=== PATIENT | female | born 1940 | race Caucasian/White ===

== ENCOUNTER → 2017-02-04 | Day surgery (SDC) | payer MEDICARE ==
[~2017-02-04] VITALS: Ht 163.8 cm; Wt 47.9 kg
[~2017-02-04] MED LIST: ASPI1TAB69 PO; BIOT1000 PO; CEFU1TAB20 PO; CHLORHEXIDINE GLUCONATE 2 % 1 PACK (2 CLOTHS) TOPICAL PRN; D31000CA PO; DO NOT ADM ANY ANTICOAGULANT DRUGS PRN; EPINEPHrine HCL (1:1000) 1 MG/ML VIAL ONE; FAMOTIDINE 20 MG/2 ML VIAL ONE; FERR1TAB7 PO; GAS-80CH CHEW; INSULIN HUMAN REGULAR 1,000 UNITS/10 ML VIAL SQ PRN; IPRAAER INH; LACTATED RINGER'S 1000 ML IV PRN; LEVO50TA4 PO; LIDOCAINE HCL 2% PF SOLN 10 ML VIAL ONE; LIDOCAINE VISCOUS 2% SOLN 15 ML UDC ONE; LIFI1DRO EACH EYE; METOPROLOL TARTRATE 25 MG TAB PO PRN; MIDAZOLAM HCL 2 MG/2 ML VIAL ONE; OMEP20TA PO; ONDANSETRON HCL 4 MG/2 ML VIAL IV PUSH ONE; POVIDONE IODINE 5% (ANTISEPSIS KIT) 4 APPLICATIONS EACH NARE PRN; PROPOFOL 200 MG/20 ML AMP IV ONE; SODIUM CHLORID 0.9% 500 ML IV PRN; VITA500T4 PO; ePHEDrine/NS 25 MG/5 ML SYR IV ONE
[2017-02-04 06:22] VITALS: BP 120/69; PULSE 79; RESP 18; TEMP 97.8; O2SAT 95
[2017-02-04 06:34] LABS: AUTOMATED NEUTROPHIL # 4.8 TH/MM3 (1.8-7.7); BASOPHIL # 0.2 TH/MM3 (0-0.2); BASOPHIL % 2.5 % (0.0-2.0); EOSINOPHIL # 0.4 TH/MM3 (0-0.4); EOSINOPHIL % 5.6 % (0.0-4.0); HEMATOCRIT 45.1 % (35.0-46.0); HEMO FLAGS DIFF FINAL; LYMPH % 20.5 % (9.0-44.0); LYMPHOCYTE # 1.6 TH/MM3 (1.0-4.8); MEAN CELL VOLUME 91.6 FL (80.0-100.0); MEAN CORPUSCULAR HEMOGLOBIN 29.6 PG (27.0-34.0); MEAN CORPUSCULAR HGB CONC 32.3 % (32.0-36.0); MONO % 8.5 % (0.0-8.0); NEUT % 62.9 % (16.0-70.0); PLATELET COUNT 286 TH/MM3 (150-450); RED BLOOD COUNT 4.92 MIL/MM3 (4.00-5.30); RED CELL DISTRIBUTION WIDTH 13.1 % (11.6-17.2); WHITE BLOOD COUNT 7.6 TH/MM3 (4.0-11.0)
[2017-02-04 06:50] LABS: APTT (PATIENT) 25.2 SEC (24.3-30.1); INTERNATIONAL NORMALIZED RATIO 0.9 RATIO; PROTHROMBIN TIME - PATIENT 10.4 SEC (9.8-11.6)
--- NOTE | 2017-02-04 09:16 | MR ---
cc: YOSEF NAVAS DATE: 02/04/2017 PROCEDURE Fiberoptic bronchoscopy, flexible. REASON FOR BRONCHOSCOPY Cavitary density, left upper lung. DETAILS OF PROCEDURE Fiberoptic bronchoscopy performed via LMA. Vocal cords intact. Trachea moderately hyperemic. Mary Lou sharp. Right main stem bronchus, right upper, middle and lower lobes, left main bronchus, left upper and lower lobe inspected. No obstructive pathology or mass lesion seen. Washings obtained from both sides of the tracheobronchial tree for routine, TB, fungal cultures and cytological exam. Given biopsies left upper lobe where obtained as well as blood and catheter for microbiology. There is some irregularity of the mucosa in the left upper lung, however, no mass lesion per se is identified. Procedure well-tolerated. Patient transferred to Recovery in stable condition. IMPRESSION 1. Moderate tracheobronchitis. 2. No obstruction or mass lesion. 3. Samples obtained as above. 4. Procedure well-tolerated. 5. Patient transferred to Recovery in stable condition. MD XAVI Garay/DI /8:44 AM /9:13 AM
[2017-02-04 09:41] VITALS: BP 120/69; PULSE 78; RESP 16; TEMP 97.8; O2SAT 95
--- NOTE | 2017-02-04 15:38 | EKG ---
Date Performed: 02/04/2017 Time Performed: 06:18:02 PTAGE: 76 years EKG: Sinus rhythm RIGHT ATRIAL ENLARGEMENT LEFT ATRIAL ENLARGEMENT MARKED RIGHT AXIS DEVIATION S1-S2-S3 PATTERN, CONSI STENT WITH PULMONARY DISEASE, RVH, OR NORMAL VARIANT PATTERN CONSISTENT WITH PULMONARY DISEASE INCOMP LETE RIGHT BUNDLE BRANCH BLOCK ABNORMAL ECG Compared to prior tracing no significant change PREVIOUS TRACING : 04/23/2005 14.22 DOCTOR: Amanda Proctor Interpretating Date/Time 02/04/2017 15:38:02
== END | disposition home or self-care (01) ==
LOC: HSDC 05:27
PROVIDERS: ATTEND Internal Medicine Sleep Medicine
DX: J40 Bronchitis, not specified as acute or chronic (principal); J47.9 Bronchiectasis, uncomplicated; Z01.818 Encounter for other preprocedural examination; Z01.810 Encounter for preprocedural cardiovascular examination
CPT/HCPCS: 00520; 31623; 85025; 85610; 85730; 87015; 87070; 87071; 87102; 87116; 87205; 87206; 88112; 88305; 93005; J0171; J2250; J2405

== ENCOUNTER 2017-06-27 12:00 | Inpatient (IN) | payer MEDICARE ==
[2017-06-27] VITALS (9 sets, daily range): BP systolic 112–154; BP diastolic 55–67; PULSE 76–94; RESP 14–18; TEMP 95.9–98.4; O2SAT 96–100
[~2017-06-27] VITALS: Ht 162.6 cm; Wt 50.8 kg
[~2017-06-27 12:00] MED LIST changes: -CHLORHEXIDINE GLUCONATE 2 % 1 PACK (2 CLOTHS) TOPICAL PRN; -DO NOT ADM ANY ANTICOAGULANT DRUGS PRN; -EPINEPHrine HCL (1:1000) 1 MG/ML VIAL ONE; -FAMOTIDINE 20 MG/2 ML VIAL ONE; -INSULIN HUMAN REGULAR 1,000 UNITS/10 ML VIAL SQ PRN; -LACTATED RINGER'S 1000 ML IV PRN; -LIDOCAINE HCL 2% PF SOLN 10 ML VIAL ONE; -LIDOCAINE VISCOUS 2% SOLN 15 ML UDC ONE; -METOPROLOL TARTRATE 25 MG TAB PO PRN; -MIDAZOLAM HCL 2 MG/2 ML VIAL ONE; -ONDANSETRON HCL 4 MG/2 ML VIAL IV PUSH ONE; -POVIDONE IODINE 5% (ANTISEPSIS KIT) 4 APPLICATIONS EACH NARE PRN; -PROPOFOL 200 MG/20 ML AMP IV ONE; -SODIUM CHLORID 0.9% 500 ML IV PRN; -ePHEDrine/NS 25 MG/5 ML SYR IV ONE
[2017-06-27] MEDS ORDERED: RESP: ALBUTEROL 2.5 MG/IPRATROPIUM 0.5 MG NEB (SCH) INH ONE (13:00)
[2017-06-27] MEDS ORDERED: SODIUM CHLORIDE 0.9% FLUSH 10 ML FLUSH IVF PRN (13:00)
--- NOTE | 2017-06-27 13:04 | PD ---
HPI Chief Complaint: Respiratory Symptoms Time Seen by Provider: 12:35 Travel History International Travel<30 days: No Contact w/Intl Traveler<30days: No Traveled to known affect area: No History of Present Illness HPI Patient comes in after been seen by her cataloging assistant Dr. Katz secondary to cough ongoing for 3 weeks. Patient reports she has been on Levaquin, steroids, using her Smart vest, and her nebulizer, but has not been getting any better. Patient reports low-grade temperature in the beginning. Patient reports history of multiple bronchoscopies in the past. Patient reports cough is nonproductive. Denies any chest pain, abdominal pain, vomiting, diarrhea, headache, numbness tingling anywhere. Denies anything making it better or worse. PFSH Past Medical History Arthritis: Yes Cancer: No Cardiovascular Problems: Yes (CARDIAC STENTS) COPD: Yes Diabetes: No Endocrine: Yes Gastrointestinal Disorders: Yes (GERD) GERD: No Genitourinary: Yes (INCONTINENCE) Hepatitis: No Hiatal Hernia: No Immune Disorder: No Medical other: Yes (Hx MAC(microbiotic averium complex)) Musculoskeletal: Yes (OSTEOPRNIS) Respiratory: Yes (SHORTNESS OF BREATH ON EXERTION, FLUID LEFT LUNG,COPD) Thyroid Disease: Yes Ulcer: No Influenza Vaccination: Yes ?: Not : 2 Para: 2 Past Surgical History Abdominal Surgery: Yes (APPY WITH PARATENITIS) AICD: No Cardiac Surgery: No Ear Surgery: No Endocrine Surgery: No Eye Surgery: Yes (CATARACTS REMOVED) Genitourinary Surgery: No Gynecologic Surgery: No Joint Replacement: No Oral Surgery: Yes (TONSILLECTOMY) Pacemaker: No Thoracic Surgery: Yes (PARTIAL LUNG REMOVED LEFT) Other Surgery: Yes Social History Alcohol Use: No Tobacco Use: No (quit 50 years ago) Substance Use: No Allergies-Medications (Allergen,Severity, Reaction): Coded Allergies: sulfamethoxazole (Verified Adverse Reaction, Intermediate, VOMITING, 06/27) trimethoprim (Verified Adverse Reaction, Intermediate, VOMITING, 06/27/17) Reported Meds & Prescriptions Reported Meds & Active Scripts Active Reported Restasis Opth 0.05% (Cyclosporine Opth 0.05%) 0.05% Emul 1 Drop EACH EYE BID Gas Relief (Simethicone) 80 Mg Chw 80 Mg PO QID PRN Duoneb (Ipratropium-Albuterol Neb) 0.5-2.5 Mg/3 Ml Neb 3 Ml NEB QID Ventolin Hfa 18 GM Inh (Albuterol Sulfate) 90 Mcg/Act Aer 1 Puff INH Q4H PRN Sm Iron Slow Release (Ferrous Sulfate) 142 Mg (45 Mg Iron) Tab 1 Tab PO DAILY Aspirin Adult Low Strength (Aspirin) 81 Mg Tabdr 81 Mg PO DAILY Biotin 1,000 Mcg Tab 1,000 Mcg PO DAILY D3 (Cholecalciferol) 1,000 Unit Cap 1,000 Units PO DAILY Vitamin B-12 (Cyanocobalamin) 500 Mcg Tab 500 Mcg PO DAILY Omeprazole 20 Mg Tab 20 Mg PO DAILY Levothyroxine (Levothyroxine Sodium) 50 Mcg Tab 50 Mcg PO DAILY Xiidra Opth Drops (Lifitegrast Opth Drops) 5% Drops 1 Drop EACH EYE DAILY Review of Systems Except as stated in HPI: all other systems reviewed are Neg Physical Exam Narrative GENERAL: Well-developed, under nourished, in no acute distress, and non-ill appearing. SKIN: Focused skin assessment warm and dry. HEAD: Atraumatic. Normocephalic. EYES: Pupils equal and round. EOMI. No scleral icterus. No injection or drainage. ENT: No nasal bleeding or discharge. Mucous membranes pink and moist. NECK: Trachea midline. Supple. No nuclear rigidity. CARDIOVASCULAR: Regular rate and rhythm. No murmur appreciated. RESPIRATORY: No accessory muscle use. No respiratory distress. Scant wheezing throughout. Breath sounds equal bilaterally. Dry hacking cough noted on exam. MUSCULOSKELETAL: No obvious deformities. No clubbing. No cyanosis. No edema. Full range of motion. NEUROLOGICAL: Awake and alert. No obvious cranial nerve deficits. Motor grossly within normal limits. Normal speech. PSYCHIATRIC: Appropriate mood and affect; insight and judgment normal. Data Data Last Documented VS Vital Signs Date Time Temp Pulse Resp B/P (MAP) Pulse Ox O2 Delivery O2 Flow Rate FiO2 06/27/17 15:34 97.8 82 18 123/67 (85) 98 Room Air 06/27/17 13:10 21 Orders Orders Electrocardiogram (06/27/17 ) Electrocardiogram (06/27/17 12:53) Basic Metabolic Panel (Bmp) (06/27/17 12:53) Complete Blood Count With Diff (06/27/17 12:53) Lactic Acid Sepsis Protocol (06/27/17 12:53) Blood Culture (06/27/17 12:53) Chest, Single Ap (06/27/17 12:53) Arterial Blood Gas (Abg) (06/27/17 12:53) Ecg Monitoring (06/27/17 12:53) Iv Access Insert/Monitor (06/27/17 12:53) Oximetry (06/27/17 12:53) Sodium Chloride 0.9% Flush (Ns Flush) (06/27/17 13:00) Albuterol-Ipratropium Neb (Duoneb Neb) (06/27/17 13:00) Ct Pulmonary Angiogram (06/27/17 ) Sodium Chlorid 0.9% 500 Ml Inj (Ns 500 M (06/27/17 14:00) Methylprednisolone So Succ Inj (Solumedr (06/27/17 14:00) Ceftriaxone Inj (Rocephin Inj) (06/27/17 14:00) Azithromycin Inj (Zithromax Inj) (06/27/17 14:00) Iohexol 350 Inj (Omnipaque 350 Inj) (06/27/17 14:37) Admit Order (Ed Use Only) (06/27/17 15:48) Labs Laboratory Tests Test 06/27/17 13:00 06/27/17 13:10 White Blood Count 14.7 TH/MM3 Red Blood Count 4.82 MIL/MM3 Hemoglobin 14.5 GM/DL Hematocrit 43.7 % Mean Corpuscular Volume 90.6 FL Mean Corpuscular Hemoglobin 30.2 PG Mean Corpuscular Hemoglobin Concent 33.3 % Red Cell Distribution Width 13.0 % Platelet Count 366 TH/MM3 Mean Platelet Volume 6.8 FL Neutrophils (%) (Auto) 81.1 % Lymphocytes (%) (Auto) 8.7 % Monocytes (%) (Auto) 7.6 % Eosinophils (%) (Auto) 1.7 % Basophils (%) (Auto) 0.9 % Neutrophils # (Auto) 12.0 TH/MM3 Lymphocytes # (Auto) 1.3 TH/MM3 Monocytes # (Auto) 1.1 TH/MM3 Eosinophils # (Auto) 0.2 TH/MM3 Basophils # (Auto) 0.1 TH/MM3 CBC Comment DIFF FINAL Differential Comment Blood Urea Nitrogen 9 MG/DL Creatinine 0.56 MG/DL Random Glucose 88 MG/DL Calcium Level 8.7 MG/DL Sodium Level 134 MEQ/L Potassium Level 3.9 MEQ/L Chloride Level 100 MEQ/L Carbon Dioxide Level 27.8 MEQ/L Anion Gap 6 MEQ/L Estimat Glomerular Filtration Rate 104 ML/MIN Lactic Acid Level 0.9 mmol/L Blood Gas Puncture Site LT BRACHIAL Blood Gas Patient Temperature 98.6 Blood Gas HCO3 27 mmol/L Blood Gas Base Excess 3.1 mmol/L Blood Gas Oxygen Saturation 95 % Arterial Blood pH 7.43 Arterial Blood Partial Pressure CO2 41 mmHg Arterial Blood Partial Pressure O2 80 mmHG Arterial Blood Oxygen Content 18.6 Vol % Arterial Blood Carboxyhemoglobin 0.9 % Arterial Blood Methemoglobin 0.6 % Blood Gas Hemoglobin 13.9 G/DL Oxygen Delivery Device RA [facility] Medical Decision Making Medical Screen Exam Complete: Yes Emergency Medical Condition: Yes Interpretation(s) EKG reviewed by Dr. Harris shows sinus rhythm ventricular is 76. No STEMI. Differential Diagnosis COPD exacerbation, pneumonia, bronchitis, PE, electrolyte abnormality, other Narrative Course Patient seen and exam. Initial laboratory and radiological studies were ordered. IV was established and patient was placed on monitor technician. Patient was given a breathing treatment which reports improvement for symptoms. Discussed patient with Dr. Rincon, who once patient admitted to medicine with consult to him. Discussed patient with Dr. Harris, who is in agreement with plan of care and disposition. Discussed with all findings and plan care of patient was agreeable for admission. All questions were answered. Discussed patient with residents who are agreeable to admit the patient. Patient remained stable throughout ED course. Physician Communication Physician Communication [id number] Rincon, who recommended having patient admitted to medicine with consult to him. Starting patient on IV antibiotics Zithromax and Rocephin, IV steroids, and nebulized breathing treatments. [id number] Dumont, resident classroom monitor, who is agreeable to admit the patient for Dr. Snowden Diagnosis Primary Impression: COPD exacerbation Additional Impression: Failure of outpatient treatment Admitting Information Admitting Physician Requests: Admit Condition: Stable Marko Morris Jun 27, 2017 13:04
[2017-06-27] MEDS ORDERED: SIME1CHW10 PO (13:08)
[2017-06-27] MEDS ORDERED: REST0.05 EACH EYE (13:08)
[2017-06-27] MEDS ORDERED: IPRASOL NEB (13:08)
[2017-06-27] MEDS ORDERED: VENTAER INH (13:08)
[2017-06-27] MEDS ORDERED: [UNRECOGNIZED DRUG - CODE] PO (13:08)
[2017-06-27] MEDS ORDERED: ASPI1TAB91 PO (13:08)
[2017-06-27 13:15] LABS: BASOPHIL # 0.1 TH/MM3 (0-0.2); BASOPHIL % 0.9 % (0.0-2.0); EOSINOPHIL # 0.2 TH/MM3 (0-0.4); EOSINOPHIL % 1.7 % (0.0-4.0); HEMATOCRIT 43.7 % (35.0-46.0); HEMO FLAGS DIFF FINAL; LYMPH % 8.7 % (9.0-44.0); LYMPHOCYTE # 1.3 TH/MM3 (1.0-4.8); MEAN CELL VOLUME 90.6 FL (80.0-100.0); MEAN CORPUSCULAR HEMOGLOBIN 30.2 PG (27.0-34.0); MEAN CORPUSCULAR HGB CONC 33.3 % (32.0-36.0); MONO % 7.6 % (0.0-8.0); NEUT % 81.1 % (16.0-70.0); PLATELET COUNT 366 TH/MM3 (150-450); RED BLOOD COUNT 4.82 MIL/MM3 (4.00-5.30); WHITE BLOOD COUNT 14.7 TH/MM3 (4.0-11.0)
[2017-06-27 13:25] LABS: BLOOD GAS BASE EXCESS 3.1 mmol/L (-2-2); BLOOD GAS CARBOXYHEMOGLOBIN 0.9 % (0-4); BLOOD GAS HCO3 27 mmol/L (22-26); BLOOD GAS METHEMOGLOBIN 0.6 % (0-2); BLOOD GAS O2 HGB SATURATION 95 % (90-100); BLOOD GAS OXYGEN CONTENT 18.6 Vol % (12.0-20.0); BLOOD GAS PCO2 41 mmHg (38-42); BLOOD GAS PO2 80 mmHG (61-120); BLOOD GAS TOTAL HGB 13.9 G/DL (12.0-16.0); CRITICAL VALUE NO; DRAW SITE LT BRACHIAL; NUMBER OF ARTERIAL PUNCTURES 1; OXYGEN DEVICE RA; STAT YES; TEMP CORR TO 98.6; ULNAR PULSE Y
--- NOTE | 2017-06-27 13:27 | RADRPT ---
EXAM DATE/TIME: 06/27/2017 12:59 [facility] COMPARISON: CHEST PA & LAT, August 24, 2012, 21:14. INDICATIONS : Cough, MEDICAL HISTORY : Chronic obstructive pulmonary disease. SURGICAL HISTORY : Coronary artery stent. ENCOUNTER: Initial ACUITY: 3 weeks PAIN SCORE: 0/10 LOCATION: Bilateral chest FINDINGS: Chest is stable with cicatrizing fibrotic changes left upper lobe. Minimal peripheral changes latera lly right lung. Moderate hyperinflation. CONCLUSION: Stable chest with moderate hypoinflation and fibrotic changes with left upper lobe. Shmuel Whitt MD FACR on June 27, 2017 at 13:25 Board Certified Radiologist. This report was verified electronically.
[2017-06-27 13:37] LABS: BICARBONATE 27.8 MEQ/L (21.0-32.0); POTASSIUM 3.9 MEQ/L (3.5-5.1)
[2017-06-27] MEDS ORDERED: methylPREDNISolone SOD SUCC 125 MG/2 ML VIAL IV PUSH ONE (14:00)
[2017-06-27] MEDS ORDERED: cefTRIAXone INJ 1,000 MG in SODIUM CHLORIDE 0.9% INJ 100 ML IV ONE (14:00)
[2017-06-27] MEDS ORDERED: SODIUM CHLORID 0.9% 500 ML INJ 500 ML IV ONE (14:00)
[2017-06-27] MEDS ORDERED: AZITHROMYCIN INJ 500 MG in SODIUM CHLOR 0.9% 250 ML INJ 250 ML IV ONE (14:00)
[2017-06-27] MEDS ORDERED: IOHEXOL 350 MG/ML 10 ML VIAL (for RAD DIAG) IVCONTRAST ONE (14:37)
--- NOTE | 2017-06-27 15:17 | RADRPT ---
EXAM DATE/TIME: 06/27/2017 14:21 [facility] COMPARISON: No previous studies available for comparison. INDICATIONS : Chest pain and cough , evaluate for pulmonary emoblism IV CONTRAST: 73 cc Omnipaque 350 (iohexol) IV RADIATION DOSE: 12.48 CTDIvol (mGy) MEDICAL HISTORY : Cardiovascular disease. SURGICAL HISTORY : Appendectomy. Left lobectomy ENCOUNTER: Initial ACUITY: 3 weeks PAIN SCALE: 2/10 LOCATION: chest TECHNIQUE: Volumetric scanning of the chest was performed using a pulmonary embolism protocol MIP images were re constructed. Using automated exposure control and adjustment of the mA and/or kV according to patien t size, radiation dose was kept as low as reasonably achievable to obtain optimal diagnostic quality images. DICOM format image data is available electronically for review and comparison. Follow-up recommendations for detected pulmonary nodules are based at a minimum on nodule size and pa tient risk factors according to Fleischner Society Guidelines. FINDINGS: PULMONARY ARTERIES: No filling defects are seen in the pulmonary arteries through the segmental level. LUNGS: Prior left upper lobe lobectomy. Bronchiectatic changes seen bilaterally. Linear areas of scarring se en within the right middle lobe, right upper lobe, and left lower lobe. No acute infiltrate. No worri some masses. PLEURAE: There is no pleural thickening or pleural effusion. MEDIASTINUM: There is good visualization of the great vessels of the middle mediastinum. No evidence of mediastin al or hilar adenopathy/mass. MUSCULOSKELETAL: Within normal limits for patient age. MISCELLANEOUS: The visualized upper abdominal organs demonstrate no acute abnormality. CONCLUSION: 1. No pulmonary emboli. 2. Prior left upper lobe lobectomy. 3. Bronchiectasis and chronic scarring. Giovani Bearden Jr., MD on June 27, 2017 at 15:12 Board Certified Radiologist. This report was verified electronically.
--- NOTE | 2017-06-27 15:43 | EKG ---
Date Performed: 06/27/2017 Time Performed: 12:59:20 PTAGE: 77 years EKG: Sinus rhythm RIGHT ATRIAL ENLARGEMENT LEFT ATRIAL ENLARGEMENT MARKED RIGHT AXIS DEVIATION PATTERN CONSISTENT WITH PULMONARY DISEASE POSSIBLE RIGHT VENTRICULAR CONDUCTION DELAY POSSIBLE INFERIOR MYOCARDIAL INFARCTIO N ABNORMAL ECG No significant change from prior electrocardiogram. PREVIOUS TRACING : 02/04/2017 06.18 DOCTOR: Dwaine Garvin Interpretating Date/Time 06/27/2017 15:41:59
[2017-06-27] MEDS ORDERED: RESP: ALBUTEROL 2.5 MG/3 ML NEB (PRN) INH (16:00)
[2017-06-27] MEDS ORDERED: SODIUM CHLORIDE 0.9% FLUSH 10 ML FLUSH IV FLUSH PRN (16:00)
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
--- NOTE | 2017-06-27 19:12 | MB ---
cc: MCKENZIE RINCON DATE OF CONSULTATION 06/27/17 REASON FOR CONSULTATION COPD exacerbation, bronchiectasis. HISTORY OF PRESENT ILLNESS The patient is a 77-year-old female with known history of severe bronchiectasis with element of COPD complaining of a persistent cough, increasing shortness of breath for about 3 weeks. Outpatient treatment with bronchodilators, antibiotics as well as steroids have not been helpful. The patient was sent to the emergency room for same. PAST MEDICAL HISTORY Past medical history of COPD, bronchiectasis, previous DANA infection, ___, hypothyroidism. FAMILY HISTORY Mother had the brain malignancy and had osteomyelitis, with heart disease. Father had AAA and coronary artery disease. SOCIAL HISTORY Drinks alcohol socially. Used to smoke, stopped 40 years ago, has a 10 pack-year history. REVIEW OF SYSTEMS 12-point review of systems as per HPI and past history, otherwise negative. PHYSICAL EXAMINATION VITAL SIGNS: On exam temperature is 98, pulse 90, respirations 18, blood pressure 112/55. HEENT: Exam unremarkable. Eyes without icterus. NECK: Without adenopathy or thyroid enlargement. Central trachea. CHEST: Scattered rhonchi at bases. CARDIAC: Exam PMI distant. S1-S2 audible. No murmur or rub. ABDOMEN: Lax, bowel sounds audible. EXTREMITIES: No clubbing, cyanosis or edema. LABORATORY DATA White count 14.7, hemoglobin 14, hematocrit 43, platelets 366,000, sodium 134, potassium 3.9, BUN 9, creatinine 0.5. IMAGING STUDIES Chest x-ray fibrotic change, appears chronic, no acute process. IMPRESSION 1. COPD exacerbation. 2. Bronchiectasis. 3. Coronary artery disease. 4. Hypothyroidism. PLAN The patient will be admitted to the hospital. Oxygen therapy will be given as needed. Bronchodilator therapy. Antibiotic therapy as well as steroids will be given. The course will be followed closely and depending on the patient's progress will proceed accordingly. I do thank you for asking me to partake in Ms. Reyes's care. Mckenzie Rincon MD WWW/IRINA /6:39 PM /6:51 PM
[2017-06-27] MEDS: methylPREDNISolone SOD SUCC 125 MG/2 ML VIAL IV PUSH SCH (21:26)
[2017-06-27] MEDS: SODIUM CHLORIDE 0.9% FLUSH 10 ML FLUSH IV FLUSH SCH (21:26)
[2017-06-27] MEDS: RESP: ACETYLCYSTEINE 10% 30 ML NEB NEB SCH (22:00)
[2017-06-27] MEDS: RESP: ALBUTEROL 2.5 MG/IPRATROPIUM 0.5 MG NEB (SCH) INH (22:03)
[2017-06-27] MEDS ORDERED: ENALAPRILAT 1.25 MG/ML VIAL IV PUSH PRN (22:45)
[2017-06-27] MEDS ORDERED: BENZONATATE 100 MG CAP PO PRN (22:45)
[2017-06-27] MEDS ORDERED: ACETAMINOPHEN 325 MG TAB PO PRN (22:45)
[2017-06-27] MEDS: ENOXAPARIN SODIUM 40 MG/0.4 ML SYRINGE SQ SCH (22:55)
[2017-06-28] VITALS (9 sets, daily range): BP systolic 91–119; BP diastolic 52–66; PULSE 75–91; RESP 16–18; TEMP 96–97.3; O2SAT 97–100
[2017-06-28] MEDS: RESP: ALBUTEROL 2.5 MG/IPRATROPIUM 0.5 MG NEB (SCH) INH ×7 (01:20→20:43)
[2017-06-28] MEDS: methylPREDNISolone SOD SUCC 125 MG/2 ML VIAL IV PUSH SCH ×3 (02:50→21:32)
[2017-06-28] MEDS: RESP: ACETYLCYSTEINE 10% 30 ML NEB NEB SCH ×3 (05:13→20:42)
[2017-06-28] MEDS: LEVOTHYROXINE SODIUM 50 MCG TAB PO SCH (06:20)
[2017-06-28 07:25] LABS: AUTOMATED NEUTROPHIL # 11.5 TH/MM3 (1.8-7.7); BASOPHIL % 0.1 % (0.0-2.0); HEMATOCRIT 41.1 % (35.0-46.0); HEMO FLAGS DIFF FINAL; LYMPH % 6.7 % (9.0-44.0); LYMPHOCYTE # 0.8 TH/MM3 (1.0-4.8); MEAN CELL VOLUME 92.2 FL (80.0-100.0); MEAN CORPUSCULAR HEMOGLOBIN 30.3 PG (27.0-34.0); MEAN CORPUSCULAR HGB CONC 32.9 % (32.0-36.0); NEUT % 92.2 % (16.0-70.0); PLATELET COUNT 355 TH/MM3 (150-450); RED BLOOD COUNT 4.46 MIL/MM3 (4.00-5.30); RED CELL DISTRIBUTION WIDTH 12.7 % (11.6-17.2); WHITE BLOOD COUNT 12.5 TH/MM3 (4.0-11.0)
[2017-06-28 07:47] LABS: BICARBONATE 27.1 MEQ/L (21.0-32.0)
[2017-06-28] MEDS: SODIUM CHLORIDE 0.9% FLUSH 10 ML FLUSH IV FLUSH SCH ×2 (08:59→21:31)
[2017-06-28] MEDS: FERROUS SULFATE 325 MG (65 MG ELEMENTAL IRON) TAB PO SCH (08:59)
[2017-06-28] MEDS: ASPIRIN EC 81 MG TABEC PO SCH (08:59)
[2017-06-28] MEDS ORDERED: LIFITEGRAST OPTH EACH EYE SCH (09:00)
[2017-06-28] MEDS ORDERED: CYCLOSPORINE OPTH 0.05% EACH EYE SCH (09:00)
[2017-06-28] MEDS ORDERED: ROSU5 PO (09:03)
--- NOTE | 2017-06-28 09:19 | HHI.FPPN ---
Subjective Remarks Patient seen and examined this morning. No acute events overnight. Patient continues to endorse a dry cough, stable. She denies any acute chest pain, abdominal pain, pain in her legs. Her breathing is stable. She denies any additional acute concerns. (Christina Jansen MD R3) Objective Vitals Vital Signs Date Time Temp Pulse Resp B/P (MAP) Pulse Ox O2 Delivery O2 Flow Rate FiO2 06/28/17 04:00 96.0 77 16 97/52 (67) 100 06/28/17 02:02 Nasal Cannula 2.00 06/28/17 01:24 97 Nasal Cannula 3.00 06/28/17 00:00 96.6 75 17 102/54 (70) 99 06/27/17 22:06 98 Nasal Cannula 3.00 06/27/17 20:15 89 06/27/17 19:00 95.9 87 16 132/65 (87) 100 06/27/17 17:56 76 16 154/66 (95) 100 06/27/17 15:34 97.8 82 18 123/67 (85) 98 Room Air 06/27/17 14:10 97.8 76 18 128/62 (84) 98 Room Air 06/27/17 13:10 98 21 06/27/17 12:55 18 98 Room Air 06/27/17 12:44 82 20 98 Room Air 06/27/17 12:02 98.4 94 14 112/55 (74) 96 I/O 06/27/17 06/27/17 06/27/17 06/28/17 06/28/17 06/28/17 06:59 14:59 22:59 06:59 14:59 22:59 Intake Total 600 ml 730 ml 480 ml Output Total 600 ml Balance 600 ml 730 ml -120 ml Intake Oral 480 ml 480 ml IV Total 600 ml 250 ml Output Urine Total 600 ml # Voids 1 # Bowel Movements 0 0 (Christina Jansen MD R3) Result Diagram: 06/28/17 0650 06/28/17 0650 Objective Remarks GENERAL: This is a well-nourished, well-developed patient, in no apparent distress. Pt with persistent morrow cough. SKIN: No rashes, ecchymoses or lesions. Cool and dry. HEAD: Atraumatic. Normocephalic. EYES: Extraocular motions intact. No scleral icterus. No injection or drainage. ENT: Nose without bleeding, purulent drainage or septal hematoma. Uvula midline. Airway patent. NECK: Trachea midline. No JVD or lymphadenopathy. Supple, nontender, no meningeal signs. CARDIOVASCULAR: Regular rate and rhythm without murmurs, gallops, or rubs. RESPIRATORY: Clear to auscultation. Breath sounds equal bilaterally. No wheezes , rales, or rhonchi. GASTROINTESTINAL: Abdomen soft, non-tender, nondistended. No guarding. MUSCULOSKELETAL: Extremities without clubbing, cyanosis, or edema. Negative Homans sign bilaterally. NEUROLOGICAL: Awake and alert. Cranial nerves II through XII intact. Motor and sensory grossly within normal limits. Normal speech. (Christina Jansen MD R3) A/P Assessment and Plan Patient is a 77-year-old female with past history of COPD, bronchiectasis, hypothyroid, CAD who came in for failed outpatient treatment of cough. Dr. Camarena referred to ER. Currently on board and actively managing. Discharge Planning Anticipate discharge once patient's breathing has improved, and patient has been cleared by pulmonology. Likely 2-3 days. (Christina Jansen MD R3) Attending Attestation THIS CASE WAS DISCUSSED WITH THE RESIDENT PHYSICIANS DR Elvia JANSEN,DR Carisa JANSEN ,DR MENDOZA AND DR GONZALEZ. I HAVE REVIEWED THE RECORD,PATIENT WAS SEEN AND EXAMINED AND AGREE WITH THE ABOVE NOTE AND PLAN OF CARE WAS DISCUSSED. I HAVE AUTHORIZED THE ORDERS (Neymar Snowden MD) Problem List: (1) COPD exacerbation ICD Codes: J44.1 - Chronic obstructive pulmonary disease with (acute) exacerbation Status: Acute Plan: Patient with 3 weeks of non improving cough without improvement. Outpatient failure of antibiotics (Levaquin). Referred here by her buckle sorter * Dr. Camarena consulted, appreciate recommendations * CXR shows stable chest with moderate hypoinflation and fibrotic changes with left upper lobe * CT angio shows no pulmonary emboli, prior left upper lobe lobectomy, bronchiectasis and chronic scarring * Zithromax and 500 mg every 24 hours * Ceftriaxone 1000 mg every 24 hours * Mucomyst every 6 hours * Solu-Medrol 40 mg every 12 hours * DuoNeb every 4 hours * Albuterol every 2hrs as needed (2) Hypothyroidism ICD Codes: E03.9 - Hypothyroidism, unspecified Plan: Hypothyroidism -TSH slightly low at 0.288 -Continue home levothyroxine 50 g daily, consider decreasing (3) CAD (coronary artery disease) ICD Codes: I25.10 - Atherosclerotic heart disease of [place] coronary artery without angina pectoris Plan: History CAD * Continue ASA 81mg daily (4) FEN Plan: Fluids -PO Electrolytes -Monitor and replete as needed Nutrition -Full, regular diet Prophylaxis -Heparin Q8 (Christina Jansen MD R3) Christina Jansen MD R3 Jun 28, 2017 09:19 Neymar Snowden MD Jun 29, 2017 06:15
[2017-06-28] MEDS: AZITHROMYCIN 250 MG TAB PO SCH (15:58)
[2017-06-28] MEDS: cefTRIAXone INJ 1,000 MG in SODIUM CHLORIDE 0.9% INJ 100 ML IV SCH (15:59)
[2017-06-29] VITALS (9 sets, daily range): BP systolic 95–146; BP diastolic 52–79; PULSE 72–92; RESP 18–20; TEMP 96.6–97.8; O2SAT 95–99
[2017-06-29] MEDS: RESP: ALBUTEROL 2.5 MG/IPRATROPIUM 0.5 MG NEB (SCH) INH ×6 (00:04→19:39)
[2017-06-29] MEDS: ENOXAPARIN SODIUM 40 MG/0.4 ML SYRINGE SQ SCH (00:10)
[2017-06-29] MEDS: RESP: ACETYLCYSTEINE 10% 30 ML NEB NEB SCH ×3 (04:00→19:39)
[2017-06-29] MEDS: LEVOTHYROXINE SODIUM 50 MCG TAB PO SCH (06:35)
[2017-06-29 09:30] LABS: HEMATOCRIT 40.5 % (35.0-46.0); MEAN CELL VOLUME 91.5 FL (80.0-100.0); MEAN CORPUSCULAR HEMOGLOBIN 30.6 PG (27.0-34.0); MEAN CORPUSCULAR HGB CONC 33.4 % (32.0-36.0); PLATELET COUNT 359 TH/MM3 (150-450); RED BLOOD COUNT 4.42 MIL/MM3 (4.00-5.30); REVIEW FLAG FINAL; WHITE BLOOD COUNT 23.1 TH/MM3 (4.0-11.0)
[2017-06-29] MEDS: FERROUS SULFATE 325 MG (65 MG ELEMENTAL IRON) TAB PO SCH (09:49)
[2017-06-29] MEDS: ASPIRIN EC 81 MG TABEC PO SCH (09:49)
[2017-06-29] MEDS: SODIUM CHLORIDE 0.9% FLUSH 10 ML FLUSH IV FLUSH SCH ×2 (09:50→20:47)
[2017-06-29] MEDS: methylPREDNISolone SOD SUCC 125 MG/2 ML VIAL IV PUSH SCH ×2 (09:50→20:48)
[2017-06-29 10:08] LABS: BICARBONATE 27.3 MEQ/L (21.0-32.0); POTASSIUM 3.6 MEQ/L (3.5-5.1)
--- NOTE | 2017-06-29 10:14 | HHI.FPPN ---
Subjective Remarks Patient was seen and examined this morning. No acute overnight events. Afebrile. She feels the same as yesterday. Coughing improves with Ricola drops. She is on room air but reports she coughed less while on NC O2. Ambulating, eating without difficulty. Objective Vitals Vital Signs Date Time Temp Pulse Resp B/P (MAP) Pulse Ox O2 Delivery O2 Flow Rate FiO2 06/29/17 08:14 99 21 06/29/17 08:00 96.9 82 19 112/65 (81) 97 06/29/17 04:00 97.6 77 20 95/52 (66) 98 06/29/17 00:04 98 21 06/29/17 00:00 97.2 72 18 104/53 (70) 96 06/28/17 23:00 Room Air 06/28/17 20:00 97.2 79 18 118/63 (81) 98 06/28/17 19:47 Nasal Cannula 2.00 06/28/17 16:52 99 Nasal Cannula 3.00 06/28/17 14:45 96.5 82 18 91/55 (67) 99 06/28/17 12:00 96.6 91 17 99/62 (74) 99 06/28/17 10:33 99 Nasal Cannula 3.00 I/O 06/28/17 06/28/17 06/28/17 06/29/17 06/29/17 06/29/17 07:00 15:00 23:00 07:00 15:00 23:00 Intake Total 480 ml 600 ml 100 ml 720 ml Output Total 600 ml Balance -120 ml 600 ml 100 ml 720 ml Intake Oral 480 ml 600 ml 720 ml IV Total 100 ml Output Urine Total 600 ml # Voids 4 4 # Bowel Movements 0 0 Result Diagram: 06/29/17 0856 06/29/17 0856 Imaging Last Impressions Chest X-Ray 06/27/17 1253 Signed Impressions: Service Date/Time: Tuesday, June 27, 2017 12:59 - CONCLUSION: Stable chest with moderate hypoinflation and fibrotic changes with left upper lobe. Shmuel Whitt MD FACR CT Angiography 06/27/17 0000 Signed Impressions: Service Date/Time: Tuesday, June 27, 2017 14:21 - CONCLUSION: 1. No pulmonary emboli. 2. Prior left upper lobe lobectomy. 3. Bronchiectasis and chronic scarring. Giovani Bearden Jr., MD Objective Remarks GENERAL: This is a well-nourished, well-developed patient, in no apparent distress. Pt with intermittent dry cough during interview SKIN: No rashes, ecchymoses or lesions. Cool and dry. HEAD: Atraumatic. Normocephalic. EYES: Extraocular motions intact. No scleral icterus. No injection or drainage. ENT: Nose without bleeding, purulent drainage or septal hematoma. Uvula midline. Airway patent. NECK: Trachea midline. No JVD or lymphadenopathy. Supple, nontender, no meningeal signs. CARDIOVASCULAR: Regular rate and rhythm without murmurs, gallops, or rubs. RESPIRATORY: Clear to auscultation without wheezes or rhonchi. Breath sounds equal bilaterally. GASTROINTESTINAL: Abdomen soft, non-tender, nondistended. No guarding. MUSCULOSKELETAL: Extremities without clubbing, cyanosis, or edema. Negative Homans sign bilaterally. NEUROLOGICAL: Awake and alert. Cranial nerves II through XII intact. Motor and sensory grossly within normal limits. Normal speech. Medications and IVs Inpatient Medications Acetaminophen (Tylenol) 650 mg Q6H PRN PO PAIN SCALE 1 TO 10; Start 06/27/17 at 22:45 Acetylcysteine (Mucomyst 10% Neb) 2 ml BID NEB NEB ; Start 06/29/17 at 20:00 Albuterol Sulfate (Albuterol Neb) 2.5 mg Q2HR NEB PRN INH SHORTNESS OF BREATH; Start 06/27/17 at 16:00 Albuterol/ Ipratropium (Duoneb Neb) 1 ampule QID NEB INH ; Start 06/29/17 at 12:00 Aspirin (Ecotrin Ec) 81 mg DAILY PO Last administered on 06/29/17 09:49; Start 06/28/17 at 09:00 Azithromycin (Zithromax) 500 mg Q24H PO Last administered on 06/28/17 15:58; Start 06/28/17 at 16:00; Stop 07/02/17 at 15:59 Azithromycin 500 mg/Sodium Chloride 250 ml @ 250 mls/hr ONCE ONCE IV Last administered on 06/27/17 14:41; Start 06/27/17 at 14:00; Stop 06/27/17 at 14 :59; Status DC Benzonatate (Tessalon) 100 mg TID PRN PO COUGH; Start 06/27/17 at 22:45 Ceftriaxone Sodium 1000 mg/ Sodium Chloride 100 ml @ 200 mls/hr Q24H IV Last administered on 06/28/17 15:59; Start 06/28/17 at 14:00 Enalaprilat (Vasotec Inj) 1.25 mg Q6H PRN IV PUSH SBP> OR = 180, DBP> OR = 100 ; Start 06/27/17 at 22:45 Enoxaparin Sodium (Lovenox Inj) 40 mg Q24H SQ Last administered on 06/29/17 00:10; Start 06/27/17 at 23:00 Ferrous Sulfate (Ferrous Sulfate) 325 mg DAILY PO Last administered on 09:49; Start 06/28/17 at 09:00 Levothyroxine Sodium (Synthroid) 50 mcg DAILY@0600 PO Last administered on 06:35; Start 06/28/17 at 06:00 Methylprednisolone Sodium Succinate (SoluMEDROL INJ) 60 mg Q12HR IV PUSH Last administered on 06/29/17 09:50; Start 06/28/17 at 21:00 Patient Own Medication PT OWN MED:LIFITEGRAST OPTLeonie GONZALEZ. DAILY EACH EYE ; Start 06/28/17 at 09:00; Status Future Hold Sodium Chloride (NS Flush) 2 ml BID IV FLUSH Last administered on 06/29/17 09 :50; Start 06/27/17 at 21:00 Urinary Catheter: No Vascular Central Line Catheter: No A/P Assessment and Plan Patient is a 77-year-old female with past history of COPD, bronchiectasis, hypothyroid, CAD who came in for failed outpatient treatment of cough. Dr. Rincon referred to ER. Pulmonology consulted. Discharge Planning Anticipate discharge once patient's breathing has improved, and patient has been cleared by pulmonology. Likely 2-3 days. Problem List: (1) COPD exacerbation ICD Codes: J44.1 - Chronic obstructive pulmonary disease with (acute) exacerbation Status: Acute Plan: Patient with 3 weeks of non improving cough without improvement. Outpatient failure of antibiotics (Levaquin). Referred here by her portfolio strategist * Dr. Rincon consulted, appreciate recommendations * CXR shows stable chest with moderate hypoinflation and fibrotic changes with left upper lobe * CT angio shows no pulmonary emboli, prior left upper lobe lobectomy, bronchiectasis and chronic scarring * Zithromax and 500 mg every 24 hours * Ceftriaxone 1000 mg every 24 hours * Mucomyst every 6 hours * Solu-Medrol 40 mg every 12 hours * DuoNeb every 4 hours * Albuterol every 2hrs as needed (2) Hypothyroidism ICD Codes: E03.9 - Hypothyroidism, unspecified Plan: Hypothyroidism -TSH slightly low at 0.288 -Continue home levothyroxine 50 g daily, consider decreasing (3) CAD (coronary artery disease) ICD Codes: I25.10 - Atherosclerotic heart disease of [place] coronary artery without angina pectoris Plan: History CAD * Continue ASA 81mg daily (4) FEN Plan: Fluids -PO Electrolytes -Monitor and replete as needed Nutrition -Full, regular diet Prophylaxis -Heparin Q8 Piedad Dumont MD R2 Jun 29, 2017 10:14
--- NOTE | 2017-06-29 12:17 | HHI.PR ---
Subjective Remarks ALERT STILL WITH COUGH Objective Vital Signs Date Time Temp Pulse Resp B/P (MAP) Pulse Ox O2 Delivery O2 Flow Rate FiO2 06/29/17 08:14 99 21 06/29/17 08:00 96.9 82 19 112/65 (81) 97 06/29/17 04:00 97.6 77 20 95/52 (66) 98 06/29/17 00:04 98 21 06/29/17 00:00 97.2 72 18 104/53 (70) 96 06/28/17 23:00 Room Air 06/28/17 20:00 97.2 79 18 118/63 (81) 98 06/28/17 19:47 Nasal Cannula 2.00 06/28/17 16:52 99 Nasal Cannula 3.00 06/28/17 14:45 96.5 82 18 91/55 (67) 99 I/O 06/28/17 06/28/17 06/28/17 06/29/17 06/29/17 06/29/17 07:00 15:00 23:00 07:00 15:00 23:00 Intake Total 480 ml 600 ml 100 ml 720 ml Output Total 600 ml Balance -120 ml 600 ml 100 ml 720 ml Intake Oral 480 ml 600 ml 720 ml IV Total 100 ml Output Urine Total 600 ml # Voids 4 4 # Bowel Movements 0 0 Result Diagram: 06/29/17 0856 06/29/17 08 Other Results GENERAL: SKIN: Warm and dry. HEAD: Atraumatic. Normocephalic. EYES: Pupils equal and round. No scleral icterus. No injection or drainage. ENT: No nasal bleeding or discharge. Mucous membranes pink and moist. NECK: Trachea midline. No JVD. CARDIOVASCULAR: Regular rate and rhythm. RESPIRATORY: No accessory muscle use. Clear to auscultation. Breath sounds equal bilaterally. GASTROINTESTINAL: Abdomen soft, non-tender, nondistended. Hepatic and splenic margins not palpable. MUSCULOSKELETAL: Extremities without clubbing, cyanosis, or edema. No obvious deformities. NEUROLOGICAL: Awake and alert. No obvious cranial nerve deficits. Motor grossly within normal limits. Five out of 5 muscle strength in the arms and legs. Normal speech. PSYCHIATRIC: Appropriate mood and affect; insight and judgment normal. Medications and IVs Laboratory Tests Test 06/27/17 13:00 06/27/17 13:10 06/28/17 06:50 06/29/17 08:56 White Blood Count 14.7 TH/MM3 (4.0-11.0) 12.5 TH/MM3 (4.0-11.0) 23.1 TH/MM3 (4.0-11.0) Mean Platelet Volume 6.8 FL (7.0-11.0) Neutrophils (%) (Auto) 81.1 % (16.0-70.0) 92.2 % (16.0-70.0) Lymphocytes (%) (Auto) 8.7 % (9.0-44.0) 6.7 % (9.0-44.0) Neutrophils # (Auto) 12.0 TH/MM3 (1.8-7.7) 11.5 TH/MM3 (1.8-7.7) Monocytes # (Auto) 1.1 TH/MM3 (0-0.9) Sodium Level 134 MEQ/L (136-145) Blood Gas HCO3 27 mmol/L (22-26) Blood Gas Base Excess 3.1 mmol/L (-2-2) Arterial Blood pH 7.43 (7.380-7.420) Lymphocytes # (Auto) 0.8 TH/MM3 (1.0-4.8) Random Glucose 140 MG/DL (74-106) 153 MG/DL (74-106) Thyroid Stimulating Hormone 3rd Gen 0.288 uIU/ML (0.358-3.740) Estimat Glomerular Filtration Rate 88 ML/MIN (>89) Assessment and Plan Assessment and Plan COPD BRONCHIECTASIS PLAN ANTIBX BRONCHODILATOR THERAPY ADD MUCINEX Mckenzie Rincon MD Jun 29, 2017 12:17
[2017-06-29] MEDS: cefTRIAXone INJ 1,000 MG in SODIUM CHLORIDE 0.9% INJ 100 ML IV SCH (15:50)
[2017-06-29] MEDS: AZITHROMYCIN 250 MG TAB PO SCH (15:55)
[2017-06-29] MEDS: guaiFENesin E.R. 600 MG TAB PO SCH (20:48)
[2017-06-30] VITALS (7 sets, daily range): BP systolic 120–166; BP diastolic 68–81; PULSE 72–91; RESP 18; TEMP 96–97; O2SAT 96–99
[2017-06-30] MEDS: ENOXAPARIN SODIUM 40 MG/0.4 ML SYRINGE SQ SCH ×2 (00:06→22:04)
[2017-06-30] MEDS: LEVOTHYROXINE SODIUM 50 MCG TAB PO SCH (06:16)
[2017-06-30 07:32] LABS: AUTOMATED NEUTROPHIL # 14.3 TH/MM3 (1.8-7.7); BASOPHIL % 0.1 % (0.0-2.0); HEMATOCRIT 38.7 % (35.0-46.0); HEMO FLAGS DIFF FINAL; LYMPH % 3.4 % (9.0-44.0); LYMPHOCYTE # 0.5 TH/MM3 (1.0-4.8); MEAN CELL VOLUME 91.4 FL (80.0-100.0); MEAN CORPUSCULAR HEMOGLOBIN 29.6 PG (27.0-34.0); MEAN CORPUSCULAR HGB CONC 32.4 % (32.0-36.0); MONO % 3.4 % (0.0-8.0); NEUT % 93.1 % (16.0-70.0); PLATELET COUNT 313 TH/MM3 (150-450); RED BLOOD COUNT 4.23 MIL/MM3 (4.00-5.30); RED CELL DISTRIBUTION WIDTH 13.1 % (11.6-17.2); WHITE BLOOD COUNT 15.4 TH/MM3 (4.0-11.0)
[2017-06-30 07:57] LABS: BICARBONATE 28.9 MEQ/L (21.0-32.0); POTASSIUM 3.8 MEQ/L (3.5-5.1)
[2017-06-30] MEDS: RESP: ACETYLCYSTEINE 10% 30 ML NEB NEB SCH ×2 (08:00→20:27)
[2017-06-30] MEDS: RESP: ALBUTEROL 2.5 MG/IPRATROPIUM 0.5 MG NEB (SCH) INH ×4 (08:15→20:27)
[2017-06-30] MEDS: guaiFENesin E.R. 600 MG TAB PO SCH ×2 (08:20→20:13)
[2017-06-30] MEDS: FERROUS SULFATE 325 MG (65 MG ELEMENTAL IRON) TAB PO SCH (08:20)
[2017-06-30] MEDS: ASPIRIN EC 81 MG TABEC PO SCH (08:20)
[2017-06-30] MEDS: methylPREDNISolone SOD SUCC 125 MG/2 ML VIAL IV PUSH SCH ×2 (08:21→20:13)
[2017-06-30] MEDS: SODIUM CHLORIDE 0.9% FLUSH 10 ML FLUSH IV FLUSH SCH ×2 (08:22→20:13)
--- NOTE | 2017-06-30 11:03 | HHI.FPPN ---
Subjective Remarks Patient states that she is doing okay this morning. She has had increased cough since the addition of the Mucinex to her medications. She feels like she is trying to cough up something deep in her chest. No sputum production as of yet. She has not had a bowel movement since Friday, 3 days ago. No fever/chills, no chest pain, no shortness of breath, no abdominal pain, no nausea or vomiting, no dizziness/lightheadedness. Objective Vitals Vital Signs Date Time Temp Pulse Resp B/P (MAP) Pulse Ox O2 Delivery O2 Flow Rate FiO2 06/30/17 08:00 96.6 72 18 144/80 (101) 98 06/30/17 04:29 96.9 84 18 141/78 (99) 96 06/30/17 00:45 97.0 87 18 136/81 (99) 98 06/29/17 20:36 96.8 88 18 140/79 (99) 99 06/29/17 19:07 Room Air 06/29/17 16:00 97.8 89 18 119/61 (80) 95 06/29/17 15:35 98 21 06/29/17 12:00 96.6 92 19 146/67 (93) 98 I/O 06/29/17 06/29/17 06/29/17 06/30/17 06/30/17 06/30/17 07:00 15:00 23:00 07:00 15:00 23:00 Intake Total 720 ml 720 ml 240 ml 240 ml Balance 720 ml 720 ml 240 ml 240 ml Intake Oral 720 ml 720 ml 240 ml 240 ml # Voids 4 4 3 4 # Bowel Movements 0 0 0 Result Diagram: 06/30/17 0642 06/30/17 0642 Imaging Last Impressions Chest X-Ray 06/27/17 1253 Signed Impressions: Service Date/Time: Tuesday, June 27, 2017 12:59 - CONCLUSION: Stable chest with moderate hypoinflation and fibrotic changes with left upper lobe. Shmuel Whitt MD FACR CT Angiography 06/27/17 0000 Signed Impressions: Service Date/Time: Tuesday, June 27, 2017 14:21 - CONCLUSION: 1. No pulmonary emboli. 2. Prior left upper lobe lobectomy. 3. Bronchiectasis and chronic scarring. Giovani Bearden Jr., MD Objective Remarks GENERAL: This is a well-nourished, well-developed patient, in no apparent distress. Pt with dry cough during interview. SKIN: No rashes, ecchymoses or lesions. Cool and dry. HEAD: Atraumatic. Normocephalic. EYES: Extraocular motions intact. No scleral icterus. No injection or drainage. ENT: Nose without bleeding, purulent drainage or septal hematoma. Uvula midline. Airway patent. NECK: Trachea midline. No JVD or lymphadenopathy. Supple, nontender, no meningeal signs. CARDIOVASCULAR: Regular rate and rhythm without murmurs, gallops, or rubs. RESPIRATORY: Clear to auscultation without wheezes or rhonchi. Breath sounds equal bilaterally. GASTROINTESTINAL: Abdomen soft, non-tender, nondistended. No guarding. MUSCULOSKELETAL: Extremities without clubbing, cyanosis, or edema. NEUROLOGICAL: Awake and alert. Motor and sensory grossly within normal limits. Normal speech. A/P Assessment and Plan Patient is a 77-year-old female with past history of COPD, bronchiectasis, hypothyroid, CAD who came in for failed outpatient treatment of cough. Dr. Rincon referred to ER. Pulmonology consulted. Discharge Planning Anticipate discharge once patient's breathing has improved, and patient has been cleared by pulmonology. Likely 2-3 days. Problem List: (1) COPD exacerbation ICD Codes: J44.1 - Chronic obstructive pulmonary disease with (acute) exacerbation Status: Acute Plan: Patient with 3 weeks of non improving cough without improvement. Outpatient failure of antibiotics (Levaquin). Referred here by her shift supervisor film processing , * Dr. Rincon consulted, appreciate recommendations * Mucinex added on 06/29, 600mg q12 hours * CXR shows stable chest with moderate hypoinflation and fibrotic changes with left upper lobe * CT angio shows no pulmonary emboli, prior left upper lobe lobectomy, bronchiectasis and chronic scarring * Zithromax and 500 mg every 24 hours * Ceftriaxone 1000 mg every 24 hours * Mucomyst every 6 hours * Solu-Medrol 40 mg every 12 hours * DuoNeb every 4 hours * Albuterol every 2hrs as needed (2) Hypothyroidism ICD Codes: E03.9 - Hypothyroidism, unspecified Plan: Hypothyroidism -TSH slightly low at 0.288 -Continue home levothyroxine 50 g daily, consider decreasing (3) CAD (coronary artery disease) ICD Codes: I25.10 - Atherosclerotic heart disease of [place] coronary artery without angina pectoris Plan: History CAD * Continue ASA 81mg daily (4) FEN Plan: Fluids -PO Electrolytes -Monitor and replete as needed Nutrition -Full, regular diet Prophylaxis -Heparin Q8 Bianka Mandel MD R1 Jun 30, 2017 11:03
[2017-06-30] MEDS: cefTRIAXone INJ 1,000 MG in SODIUM CHLORIDE 0.9% INJ 100 ML IV SCH (14:40)
[2017-06-30] MEDS: AZITHROMYCIN 250 MG TAB PO SCH (14:40)
--- NOTE | 2017-06-30 16:16 | HHI.PR ---
Subjective Remarks ALERT STILL WITH COUGH Objective Vital Signs Date Time Temp Pulse Resp B/P (MAP) Pulse Ox O2 Delivery O2 Flow Rate FiO2 06/30/17 12:00 96.0 81 18 122/70 (87) 96 06/30/17 08:00 96.6 72 18 144/80 (101) 98 06/30/17 04:29 96.9 84 18 141/78 (99) 96 06/30/17 00:45 97.0 87 18 136/81 (99) 98 06/29/17 20:36 96.8 88 18 140/79 (99) 99 06/29/17 19:07 Room Air I/O 06/29/17 06/29/17 06/29/17 06/30/17 06/30/17 06/30/17 07:00 15:00 23:00 07:00 15:00 23:00 Intake Total 720 ml 720 ml 240 ml 240 ml Balance 720 ml 720 ml 240 ml 240 ml Intake Oral 720 ml 720 ml 240 ml 240 ml # Voids 4 4 3 4 # Bowel Movements 0 0 0 Result Diagram: 06/30/1742 06/30/17 0642 Objective Remarks GENERAL: SKIN: Warm and dry. HEAD: Atraumatic. Normocephalic. EYES: Pupils equal and round. No scleral icterus. No injection or drainage. ENT: No nasal bleeding or discharge. Mucous membranes pink and moist. NECK: Trachea midline. No JVD. CARDIOVASCULAR: Regular rate and rhythm. RESPIRATORY: No accessory muscle use. Clear to auscultation. Breath sounds equal bilaterally. GASTROINTESTINAL: Abdomen soft, non-tender, nondistended. Hepatic and splenic margins not palpable. MUSCULOSKELETAL: Extremities without clubbing, cyanosis, or edema. No obvious deformities. NEUROLOGICAL: Awake and alert. No obvious cranial nerve deficits. Motor grossly within normal limits. Five out of 5 muscle strength in the arms and legs. Normal speech. PSYCHIATRIC: Appropriate mood and affect; insight and judgment normal. Assessment and Plan Assessment and Plan COPD BRONCHIECTASIS PLAN ANTIBX BRONCHODILATOR THERAPY ADD MUCINEX home AM if stable Mckenzie Rincon MD Jun 30, 2017 16:16
[2017-07-01 00:30] VITALS: BP 118/62; PULSE 80; RESP 19; TEMP 96.3; O2SAT 98
[2017-07-01 01:49] VITALS: PULSE 73
[2017-07-01 04:25] VITALS: BP 136/69; PULSE 84; RESP 18; TEMP 96.4; O2SAT 97
[2017-07-01] MEDS: LEVOTHYROXINE SODIUM 50 MCG TAB PO SCH (05:26)
[2017-07-01 08:00] VITALS: BP 171/86; PULSE 60; RESP 20; TEMP 96.4; O2SAT 98
[2017-07-01] MEDS: FERROUS SULFATE 325 MG (65 MG ELEMENTAL IRON) TAB PO SCH (08:21)
[2017-07-01] MEDS: guaiFENesin E.R. 600 MG TAB PO SCH (08:21)
[2017-07-01] MEDS: ASPIRIN EC 81 MG TABEC PO SCH (08:21)
[2017-07-01] MEDS: methylPREDNISolone SOD SUCC 125 MG/2 ML VIAL IV PUSH SCH (08:22)
[2017-07-01 09:08] LABS: AUTOMATED NEUTROPHIL # 10.6 TH/MM3 (1.8-7.7); BASOPHIL % 0.1 % (0.0-2.0); HEMATOCRIT 38.6 % (35.0-46.0); HEMO FLAGS DIFF FINAL; LYMPH % 5.5 % (9.0-44.0); LYMPHOCYTE # 0.7 TH/MM3 (1.0-4.8); MEAN CELL VOLUME 91.3 FL (80.0-100.0); MEAN CORPUSCULAR HEMOGLOBIN 30.4 PG (27.0-34.0); MEAN CORPUSCULAR HGB CONC 33.3 % (32.0-36.0); MONO % 5.8 % (0.0-8.0); NEUT % 88.6 % (16.0-70.0); PLATELET COUNT 297 TH/MM3 (150-450); RED BLOOD COUNT 4.22 MIL/MM3 (4.00-5.30); RED CELL DISTRIBUTION WIDTH 12.7 % (11.6-17.2)
[2017-07-01] MEDS: RESP: ALBUTEROL 2.5 MG/IPRATROPIUM 0.5 MG NEB (SCH) INH (09:19)
[2017-07-01 09:20] VITALS: O2SAT 98
--- NOTE | 2017-07-01 10:50 | HHI.FPPN ---
Subjective Remarks Patient states that she is doing well this morning. She is having a cough, but is not as frequent as it was yesterday. She is having no pain, no shortness of breath, no abdominal pain, no nausea or vomiting. She had a bowel movement yesterday. Ready to go home. Objective Vitals Vital Signs Date Time Temp Pulse Resp B/P (MAP) Pulse Ox O2 Delivery O2 Flow Rate FiO2 07/01/17 09:20 98 07/01/17 08:00 96.4 60 20 171/86 (114) 98 07/01/17 04:25 96.4 84 18 136/69 (91) 97 07/01/17 01:49 73 07/01/17 00:30 96.3 80 19 118/62 (80) 98 06/30/17 21:05 96.7 91 18 166/81 (109) 96 06/30/17 20:30 99 06/30/17 20:22 Room Air 06/30/17 16:00 96.4 75 18 120/68 (85) 96 06/30/17 12:00 96.0 81 18 122/70 (87) 96 I/O 06/30/17 06/30/17 06/30/17 07/01/17 07/01/17 07/01/17 07:00 15:00 23:00 07:00 15:00 23:00 Intake Total 240 ml 750 ml 480 ml 480 ml Balance 240 ml 750 ml 480 ml 480 ml Intake Oral 240 ml 750 ml 480 ml 480 ml # Voids 4 5 4 4 # Bowel Movements 0 1 0 0 Result Diagram: 07/01/17 0829 06/30/17 0642 Imaging Last Impressions Chest X-Ray 06/27/17 1253 Signed Impressions: Service Date/Time: Tuesday, June 27, 2017 12:59 - CONCLUSION: Stable chest with moderate hypoinflation and fibrotic changes with left upper lobe. Shmuel Whitt MD FACR CT Angiography 06/27/17 0000 Signed Impressions: Service Date/Time: Tuesday, June 27, 2017 14:21 - CONCLUSION: 1. No pulmonary emboli. 2. Prior left upper lobe lobectomy. 3. Bronchiectasis and chronic scarring. Giovani Bearden Jr., MD Objective Remarks GENERAL: This is a well-nourished, well-developed patient, in no apparent distress. Pt with intermittent dry cough during interview. SKIN: No rashes, ecchymoses or lesions. Cool and dry. HEAD: Atraumatic. Normocephalic. EYES: Extraocular motions intact. No scleral icterus. No injection or drainage. ENT: Nose without bleeding, purulent drainage or septal hematoma. Uvula midline. Airway patent. NECK: Trachea midline. No JVD or lymphadenopathy. Supple, nontender, no meningeal signs. CARDIOVASCULAR: Regular rate and rhythm without murmurs, gallops, or rubs. RESPIRATORY: Clear to auscultation without wheezes or rhonchi. Breath sounds equal bilaterally. GASTROINTESTINAL: Abdomen soft, non-tender, nondistended. No guarding. MUSCULOSKELETAL: Extremities without clubbing, cyanosis, or edema. NEUROLOGICAL: Awake and alert. Motor and sensory grossly within normal limits. Normal speech. A/P Assessment and Plan Patient is a 77-year-old female with past history of COPD, bronchiectasis, hypothyroid, CAD who came in for failed outpatient treatment of cough. Dr. Rincon referred to ER. Pulmonology consulted. Discharge Planning Anticipate discharge once patient's breathing has improved, and patient has been cleared by pulmonology. Likely today. Problem List: (1) COPD exacerbation ICD Codes: J44.1 - Chronic obstructive pulmonary disease with (acute) exacerbation Status: Acute Plan: Patient with 3 weeks of cough without improvement. Outpatient failure of antibiotics (Levaquin). Referred here by her profile shaper operator, * Dr. Rincon consulted, appreciate recommendations * Mucinex added on 06/29, 600mg q12 hours * CXR shows stable chest with moderate hypoinflation and fibrotic changes with left upper lobe * CT angio shows no pulmonary emboli, prior left upper lobe lobectomy, bronchiectasis and chronic scarring * Zithromax and 500 mg every 24 hours * Ceftriaxone 1000 mg every 24 hours * Mucomyst every 6 hours * Solu-Medrol 40 mg every 12 hours * DuoNeb every 4 hours * Albuterol every 2hrs as needed (2) Hypothyroidism ICD Codes: E03.9 - Hypothyroidism, unspecified Plan: Hypothyroidism -TSH slightly low at 0.288 -Continue home levothyroxine 50 g daily, consider decreasing (3) CAD (coronary artery disease) ICD Codes: I25.10 - Atherosclerotic heart disease of [place] coronary artery without angina pectoris Plan: History CAD * Continue ASA 81mg daily (4) FEN Plan: Fluids -PO Electrolytes -Monitor and replete as needed Nutrition -Full, regular diet Prophylaxis -Heparin Q8 Bianka Mandel MD R1 Jul 01, 2017 10:50
[2017-07-01] MEDS ORDERED: PRED10PA PO (11:26)
[2017-07-01] MEDS ORDERED: IPRASOL NEB (11:26)
[2017-07-01] MEDS ORDERED: AZIT250T3 PO (11:26)
--- NOTE | 2017-07-01 11:26 | HHI.DCPOC ---
Discharge Care Plan Diagnosis: (1) COPD exacerbation (2) Failure of outpatient treatment (3) Hypothyroidism Goals to Promote Your Health * To prevent worsening of your condition and complications * To maintain your health at the optimal level Directions to Meet Your Goals Take your medications as prescribed Follow your dietary instruction Follow activity as directed Keep your appointments as scheduled Take your immunizations and boosters as scheduled If your symptoms worsen call your PCP, if no PCP go to Urgent Care Center or Emergency Room Smoking is Dangerous to Your Health. Avoid second hand smoke Call the 24-hour hour crisis hotline for domestic abuse at Piedad Dumont MD R2 Jul 01, 2017 11:26
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
== END 2017-07-01 13:01 | disposition home or self-care (01) | DRG 192 ==
LOC: NEPC 12:00 → NEDA 15:49 → N06B 18:55
PROVIDERS: ADMIT Family Medicine; ATTEND Family Medicine
DX: J44.1 Chronic obstructive pulmonary disease with (acute) exacerbation (principal); E03.9 Hypothyroidism, unspecified; I25.10 Atherosclerotic heart disease of native coronary artery without angina pectoris; Z87.891 Personal history of nicotine dependence; K21.9 Gastro-esophageal reflux disease without esophagitis; Z79.82 Long term (current) use of aspirin; Z95.5 Presence of coronary angioplasty implant and graft; M19.90 Unspecified osteoarthritis, unspecified site; R32 Unspecified urinary incontinence
CPT/HCPCS: 36600; 71010; 71275; 80048; 82805; 83605; 83880; 84443; 85025; 85027; 87040; 87804; 93005; 94150; 94640; 94664; 94667; 94668; 96365; 96367; 96372; 96375; 96376; G0378; J0456; J0696; J1650; J2930; J7040; J7050; J7608; Q9967

== ENCOUNTER 2017-10-31 13:52 | Inpatient (IN) | payer MEDICARE ==
[2017-10-31] VITALS (7 sets, daily range): BP systolic 88–140; BP diastolic 52–63; PULSE 85–95; RESP 16–24; TEMP 98.4–99.4; O2SAT 95–97
[~2017-10-31] VITALS: Ht 162.6 cm; Wt 45.0 kg
[~2017-10-31 13:52] MED LIST changes: -ASPI1TAB69 PO; +ASPI81TA16 PO; +AZIT250T3 PO; -CEFU1TAB20 PO; -D31000CA PO; -FERR1TAB7 PO; -GAS-80CH CHEW; -IPRAAER INH; +IPRASOL NEB; -OMEP20TA PO; +OMEP20TA93 PO; +PRED10PA PO; +REST0.05 EACH EYE; +ROSU5 PO; +SIME1CHW10 PO; +VENTAER INH; +[UNRECOGNIZED DRUG - CODE] PO; +[UNRECOGNIZED DRUG - CODE] PO
[2017-10-31] MEDS ORDERED: IOHEXOL 350 MG/ML 10 ML VIAL (for RAD DIAG) IVCONTRAST ONE (13:53)
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
[2017-10-31] MEDS: RESP: ALBUTEROL 2.5 MG/IPRATROPIUM 0.5 MG NEB (SCH) INH (14:55)
[2017-10-31] MEDS ORDERED: cefTRIAXone INJ 1,000 MG in SODIUM CHLORIDE 0.9% INJ 100 ML IV ONE (15:00)
[2017-10-31] MEDS ORDERED: AZITHROMYCIN INJ 500 MG in SODIUM CHLOR 0.9% 250 ML INJ 250 ML IV ONE (15:00)
[2017-10-31] MEDS ORDERED: methylPREDNISolone SOD SUCC 125 MG/2 ML VIAL IV PUSH ONE (15:00)
[2017-10-31 15:35] LABS: AUTOMATED NEUTROPHIL # 12.8 TH/MM3 (1.8-7.7); BASOPHIL # 0.1 TH/MM3 (0-0.2); BASOPHIL % 0.6 % (0.0-2.0); EOSINOPHIL # 0.2 TH/MM3 (0-0.4); EOSINOPHIL % 1.6 % (0.0-4.0); HEMATOCRIT 40.4 % (35.0-46.0); HEMOGLOBIN 13.4 GM/DL (11.6-15.3); LYMPH % 7.9 % (9.0-44.0); LYMPHOCYTE # 1.2 TH/MM3 (1.0-4.8); MEAN CELL VOLUME 91.3 FL (80.0-100.0); MEAN CORPUSCULAR HEMOGLOBIN 30.3 PG (27.0-34.0); MEAN CORPUSCULAR HGB CONC 33.2 % (32.0-36.0); MEAN PLATELET VOLUME 7.1 FL (7.0-11.0); MONO % 7.1 % (0.0-8.0); MONOCYTE # 1.1 TH/MM3 (0-0.9); NEUT % 82.8 % (16.0-70.0); PLATELET COUNT 548 TH/MM3 (150-450); RED BLOOD COUNT 4.42 MIL/MM3 (4.00-5.30); RED CELL DISTRIBUTION WIDTH 13.7 % (11.6-17.2); WHITE BLOOD COUNT 15.5 TH/MM3 (4.0-11.0)
[2017-10-31 15:44] LABS: PROTHROMBIN TIME - PATIENT 10.6 SEC (9.8-11.6)
[2017-10-31 15:51] LABS: ALBUMIN 2.6 GM/DL (3.4-5.0); ALT (GPT) 108 U/L (10-53); AST (GOT) 67 U/L (15-37); BICARBONATE 31.4 MEQ/L (21.0-32.0); BLOOD UREA NITROGEN 9 MG/DL (7-18); CALCIUM 8.5 MG/DL (8.5-10.1); CHLORIDE 93 MEQ/L (98-107); GLOMERULAR FILTRATION RATE 154 ML/MIN (>89); GLUCOSE,RANDOM 82 MG/DL (74-106); SODIUM (NA) 132 MEQ/L (136-145)
[2017-10-31 15:55] LABS: ALKALINE PHOSPHATASE 118 U/L (45-117); TOTAL BILIRUBIN ADULT 0.3 MG/DL (0.2-1.0); TOTAL PROTEIN 7.3 GM/DL (6.4-8.2); TROPONIN I LESS THAN 0.02 NG/ML (0.02-0.05)
--- NOTE | 2017-10-31 16:06 | RADRPT ---
EXAM DATE/TIME: 10/31/2017 15:14 [facility] COMPARISON: CHEST SINGLE AP, June 27, 2017, 12:59. INDICATIONS : Cough and shortness of breath for one week. MEDICAL HISTORY : Cardiovascular disease. SURGICAL HISTORY : Appendectomy. Left lobectomy ENCOUNTER: Initial ACUITY: 1 week PAIN SCORE: 0/10 LOCATION: Bilateral chest FINDINGS: Redemonstration of postsurgical features in no left lung apex. Prominent pleural parenchymal opacity in the left lung apex is unchanged. Persistent hyperinflation with diffuse interstitial prominence. B lunting of the left costophrenic angle is stable. There is no blunting of the right costophrenic angl e with airspace disease in the right lower lung zone. Cardiomediastinal contours are stable. Remainde r of exam is unchanged. CONCLUSION: 1. Stable postoperative features in the left lung apex with chronic apparent pleural-parenchymal scar ring. 2. Stable mild pleural thickening versus trace pleural effusion near the left lung base. 3. New patchy right lower lung zone airspace disease and associated trace pleural effusion versus ple ural thickening. Findings are concerning for developing pneumonia versus aspiration given above histo ry. Johnny Rivero MD on October 31, 2017 at 16:01 Board Certified Radiologist. This report was verified electronically.
[2017-10-31] MEDS ORDERED: POTASSIUM CHLORIDE 20 MEQ CONTROLLED RELEASE TAB PO ONE (16:30)
[2017-10-31 16:38] LABS: BANDS 3 % (0-6); LYMPHOCYTES 7 % (9-44); METAMYELOCYTES 2 % (0-1); MONOCYTES 3 % (0-8); MYELOCYTES 3 % (0-0); NEUTROPHIL # MANUAL DIFF 13.8 TH/MM3 (1.8-7.7); POLYS (SEG NEUTROPHILS) 80 % (16-70); PROMYELOCYTES 1 % (0-0)
[2017-10-31] MEDS ORDERED: LEVO750T3 PO (17:48)
[2017-10-31] MEDS ORDERED: NORC5TAB PO (17:48)
[2017-10-31] MEDS ORDERED: FOSA70TA PO (17:48)
--- NOTE | 2017-10-31 18:42 | RADRPT ---
EXAM DATE/TIME: 10/31/2017 18:07 [facility] COMPARISON: CT PULMONARY ANGIOGRAM, June 27, 2017, 14:21. INDICATIONS : Short of breath, embolism. IV CONTRAST: 75 cc Omnipaque 350 (iohexol) IV RADIATION DOSE: 7.57 CTDIvol (mGy) MEDICAL HISTORY : Cardiovascular disease. SURGICAL HISTORY : Coronary artery stent. Appendectomy.Left lung removed, partia, ENCOUNTER: Initial ACUITY: 1 day PAIN SCALE: 4/10 LOCATION: Bilateral chest TECHNIQUE: Volumetric scanning of the chest was performed using a pulmonary embolism protocol MIP images were re constructed. Using automated exposure control and adjustment of the mA and/or kV according to patien t size, radiation dose was kept as low as reasonably achievable to obtain optimal diagnostic quality images. DICOM format image data is available electronically for review and comparison. Follow-up recommendations for detected pulmonary nodules are based at a minimum on nodule size and pa tient risk factors according to Fleischner Society Guidelines. FINDINGS: No filling defects to suggest pulmonary embolic disease. There is prior left upper lobectomy with ext ensive pleural and parenchymal scarring bilaterally similar to prior exam. There is also some tractio n bronchiectasis upper left lung. There is a small right-sided pleural effusion and some basilar consolidation most characteristic of b ronchopneumonia or aspiration. CONCLUSION: 1. Negative for pulmonary embolism. 2. Patchy right basilar airspace consolidation most characteristic of pneumonia or aspiration. Small right effusion. 3. Postoperative left upper lobectomy with extensive pleural and parenchymal scarring in both upper l ungs, worse on the left. Jesus Nolasco MD on October 31, 2017 at 18:38 Board Certified Radiologist. This report was verified electronically.
--- NOTE | 2017-10-31 19:25 | HHI.HP ---
HPI Service [facility] Primary Care Physician Mckenzie Rincon MD Admission Diagnosis pneumonia, COPD exacerbation Diagnoses: (1) PNA (pneumonia) Diagnosis: Principal (2) COPD (chronic obstructive pulmonary disease) Diagnosis: Principal (3) Failure of outpatient treatment Diagnosis: Principal Travel History International Travel<30 Days: No Contact w/Intl Traveler <30 Da: No Traveled to Known Affected Are: No History of Present Illness This is a 77-year-old female with a PMH of HTN, CAD, COPD and Osteoporosis who was referred to the ER by her Milieu Therapist, Dr. Rincon for eval of COPD and PNA. Pt had pelvic fracture and was sent to Rehab, daughter reports pt had been doing well until approx 1wk ago when she developed SOB and cough. Had outpatient CXR showing PNA and was started on Levaquin PO approx 5 days ago. Today, w/ persistent SOB and cough. SOB is moderate, worse w/ activity, associated w/ non-productive cough. No alleviating factors. Was seen in the office by Dr. Rincon and referred to the ER for admission. Daughter also reports decreased PO intake and generalized weakness. On arrival, BP 138/58, HR 92, O2 sat 95% on RA, Temp 99.4. WBC 15.5, elevated neutrophils of 80%. Chemistry essentially unremarkable except for K+ 3.2. LFTs mildly elevated in comparison to previous. Lactic Acid normal. Trop negative. CXR was stable postop features of left lung apex, mild pleural thickening versus trace pleural effusion left lung base, new patchy right lower lung airspace disease with associated pleural effusion concerning for developing pneumonia versus aspiration. CTA with no PE, patchy right base consolidation. S/p Rocephin/ Zithro in ER. Review of Systems Except as stated in HPI: all other systems reviewed are Neg ROS: 14 point review of systems otherwise negative. Past Family Social History Past Medical History PMH: HTN, CAD, COPD and Osteoporosis Past Surgical History PAST SURGICAL HISTORY: Appendectomy, Cataract Surgery, Tonsillectomy, Partial Lung Lobectomy Allergies: Coded Allergies: sulfamethoxazole (Verified Adverse Reaction, Intermediate, VOMITING, ) trimethoprim (Verified Adverse Reaction, Intermediate, VOMITING, 10/31/17) Family History PAST FAMILY HISTORY: Reviewed. No h/o DM or CAD Social History PAST SOCIAL HISTORY: Negative for alcohol, tobacco or drugs. Physical Exam Vital Signs Vital Signs Date Time Temp Pulse Resp B/P (MAP) Pulse Ox O2 Delivery O2 Flow Rate FiO2 10/31/17 18:48 85 16 140/63 (88) 95 10/31/17 17:42 93 16 94/52 (66) 10/31/17 16:00 95 16 88/56 (67) 95 10/31/17 14:30 92 16 138/58 (84) 95 10/31/17 14:20 93 16 95 Room Air 10/31/17 14:20 98 Nasal Cannula 2.00 10/31/17 13:54 99.4 90 16 135/60 (85) 95 Physical Exam PE: GENERAL: Pleasant elderly white female in no acute distress. Daughter at bedside. HEENT: PERRLA, EOMI. No scleral icterus or conjunctival pallor. No lid lag or facial droop. CARDIOVASCULAR: Regular rate and rhythm. No obvious murmurs to auscultation. No chest tenderness to palpation. RESPIRATORY: No obvious rhonchi, occasional wheezing. Clear to auscultation. Breath sounds equal bilaterally. GASTROINTESTINAL: Abdomen soft, non-tender, nondistended. BS normal. MUSCULOSKELETAL: Extremities without clubbing, cyanosis, or edema. No obvious deformities. NEUROLOGICAL: Awake, alert and oriented x4. No focal neurologic deficits. Moving both upper and lower extremities spontaneously. Laboratory Laboratory Tests Test 10/31/17 15:00 White Blood Count 15.5 Red Blood Count 4.42 Hemoglobin 13.4 Hematocrit 40.4 Mean Corpuscular Volume 91.3 Mean Corpuscular Hemoglobin 30.3 Mean Corpuscular Hemoglobin Concent 33.2 Red Cell Distribution Width 13.7 Platelet Count 548 Mean Platelet Volume 7.1 Neutrophils (%) (Auto) 82.8 Lymphocytes (%) (Auto) 7.9 Monocytes (%) (Auto) 7.1 Eosinophils (%) (Auto) 1.6 Basophils (%) (Auto) 0.6 Neutrophils # (Auto) 12.8 Lymphocytes # (Auto) 1.2 Monocytes # (Auto) 1.1 Eosinophils # (Auto) 0.2 Basophils # (Auto) 0.1 CBC Comment AUTO DIFF Differential Total Cells Counted 100 Neutrophils % (Manual) 80 Band Neutrophils % 3 Lymphocytes % 7 Monocytes % 3 Eosinophils % 1 Neutrophils # (Manual) 13.8 Metamyelocytes 2 Myelocytes 3 Promyelocytes 1 Differential Comment FINAL DIFF MANUAL Platelet Estimate HIGH Platelet Morphology Comment NORMAL Red Cell Morphology Comment NORMAL Prothrombin Time 10.6 Prothromb Time International Ratio 1.0 Activated Partial Thromboplast Time 25.2 Blood Urea Nitrogen 9 Creatinine 0.40 Random Glucose 82 Total Protein 7.3 Albumin 2.6 Calcium Level 8.5 Alkaline Phosphatase 118 Aspartate Amino Transf (AST/SGOT) 67 Alanine Aminotransferase (ALT/SGPT) 108 Total Bilirubin 0.3 Sodium Level 132 Potassium Level 3.2 Chloride Level 93 Carbon Dioxide Level 31.4 Anion Gap 8 Estimat Glomerular Filtration Rate 154 Lactic Acid Level 1.1 Total Creatine Kinase 41 Troponin I LESS THAN 0.02 B-Type Natriuretic Peptide 40 Date/Time Source Procedure Growth Status 10/31/17 15:00 Blood Peripheral Aerobic Blood Culture Pending Received 10/31/17 15:00 Blood Peripheral Anaerobic Blood Culture Pending Received 10/31/17 15:20 Nasal Washing Influenza Types A,B Antigen (TO) - Final NEGATIVE FOR FLU A AND B ANTIGEN.... Complete Result Diagram: 10/31/17 1500 10/31/17 1500 Caprini VTE Risk Assessment Caprini VTE Risk Assessment: No/Low Risk (score <= 1) Caprini Risk Assessment Model Point Value = 1 Point Value = 2 Point Value = 3 Point Value = 5 Age 41-60 Minor surgery BMI > 25 kg/m2 Swollen legs Varicose veins or History of unexplained or recurrent spontaneous Oral contraceptives or hormone replacement Sepsis (< 1 month) Serious lung disease, including pneumonia (< 1 month) Abnormal pulmonary function Acute myocardial infarction Congestive heart failure (< 1 month) History of inflammatory bowel disease Medical patient at bed rest Age 61-74 Arthroscopic surgery Major open surgery (> 45 min) Laparoscopic surgery (> 45 min) Malignancy Confined to bed (> 72 hours) Immobilizing plaster cast Central venous access Age >= 75 History of VTE Family history of VTE Factor V Leiden Prothrombin [id number] Lupus anticoagulant Anticardiolipin antibodies Elevated serum homocysteine Heparin-induced thrombocytopenia Other congenital or acquired thrombophilia Stroke (< 1 month) Elective arthroplasty Hip, pelvis, or leg fracture Acute spinal cord injury (< 1 month) Prophylaxis Regimen Total Risk Factor Score Risk Level Prophylaxis Regimen 0-1 Low Early ambulation 2 Moderate Order ONE of the following: *Sequential Compression Device (SCD) *Heparin 5000 units SQ BID 3-4 Higher Order ONE of the following medications: *Heparin 5000 units SQ TID *Enoxaparin/Lovenox 40 mg SQ daily (WT < 150 kg, CrCl > 30 mL/min) *Enoxaparin/Lovenox 30 mg SQ daily (WT < 150 kg, CrCl > 10-29 mL/min) *Enoxaparin/Lovenox 30 mg SQ BID (WT < 150 kg, CrCl > 30 mL/min) AND/OR *Sequential Compression Device (SCD) 5 or more Highest Order ONE of the following medications: *Heparin 5000 units SQ TID (Preferred with Epidurals) *Enoxaparin/Lovenox 40 mg SQ daily (WT < 150 kg, CrCl > 30 mL/min) *Enoxaparin/Lovenox 30 mg SQ daily (WT < 150 kg, CrCl > 10-29 mL/min) *Enoxaparin/Lovenox 30 mg SQ BID (WT < 150 kg, CrCl > 30 mL/min) AND *Sequential Compression Device (SCD) Assessment and Plan Problem List: (1) COPD (chronic obstructive pulmonary disease) ICD Code: J44.9 - Chronic obstructive pulmonary disease, unspecified (2) PNA (pneumonia) ICD Code: J18.9 - Pneumonia, unspecified organism (3) Failure of outpatient treatment ICD Code: Z78.9 - Other specified health status Assessment and Plan A/P: 1. COPD: Chronic Respiratory Failure w/ Acute Exacerbation. Severe. + wheezing/SOB, continue w/ Solu-Medrol, DuoNeg q4h and q2h prn, Symbicort, Mucinex. Follows w/ Dr. Rincon as outpatient, will consult for further evaluation/recommendations. Monitor O2. 2. PNA: CXR w/ new patchy right lower lung airspace disease with trace pleural effusion, concerning for pneumonia versus aspiration. CTA negative for PE, patchy right base consolidation, images reviewed by me. Will start on Levaquin/Zosyn/Vanc for HCAP w/ concern for HCAP and aspiration and high risk for worsening pulmonary status. Consult ID for assistance w/ antibiotic regimen. Follow up Blood Cultures. Consult Dr. Rincon as above. 3. Failed Outpatient Tx: has been on Levaquin 500mg po x5 days at Rehab, persistent SOB w/ findings of PNA on imaging. Continue w/ treatment as above. 4. DVT Prophylaxis: SCD/Teds. 5. Social work for d/c planning as needed. 6. Case discussed w/ ER physician at length, labs/records/imaging reviewed by me. Physician Certification 2 Midnight Certification Type: Admission for Inpatient Services Order for Inpatient Services The services are ordered in accordance with Medicare regulations or non- Medicare payer requirements, as applicable. In the case of services not specified as inpatient-only, they are appropriately provided as inpatient services in accordance with the 2-midnight benchmark. Estimated LOS (days): 2 days is the estimated time the patient will need to remain in the hospital, assuming treatment plan goals are met and no additional complications. Post-Hospital Plan: Not yet determined Mindy Matthews MD Oct 31, 2017 19:25
[2017-10-31] MEDS ORDERED: SODIUM CHLORIDE 0.9% FLUSH 10 ML FLUSH IV FLUSH PRN (19:30)
[2017-10-31] MEDS ORDERED: ONDANSETRON HCL 4 MG/2 ML VIAL IVP PRN (19:30)
[2017-10-31] MEDS ORDERED: MORPHINE SULFATE 2 MG/ML INJ IV PUSH PRN (19:30)
[2017-10-31] MEDS ORDERED: ACETAMINOPHEN/HYDROcodone 325 MG/5 MG TAB PO PRN (19:30)
[2017-10-31] MEDS ORDERED: BISACODYL 10 MG SUPP RECTAL PRN (19:30)
[2017-10-31] MEDS ORDERED: LACTULOSE SYRUP 20 GM/30 ML CUP PO PRN (19:30)
[2017-10-31] MEDS ORDERED: SENNOSIDES 8.6 MG TAB PO PRN (19:30)
[2017-10-31] MEDS ORDERED: MAGNESIUM HYDROXIDE SUSP 30 ML CUP PO PRN (19:30)
[2017-10-31] MEDS ORDERED: ACETAMINOPHEN 325 MG TAB PO PRN (19:30)
[2017-10-31] MEDS: BUDESONIDE-FORMOTEROL 160/4.5 MCG INHALER INH SCH (21:00)
[2017-10-31] MEDS ORDERED: CYCLOSPORINE OPTH EACH EYE SCH (21:00)
[2017-10-31] MEDS: DOCUSATE SODIUM 50 MG/SENNA 8.6 MG TAB PO SCH (21:00)
[2017-10-31] MEDS: SODIUM CHLORIDE 0.9% FLUSH 10 ML FLUSH IV FLUSH SCH (22:21)
[2017-10-31] MEDS: guaiFENesin E.R. 600 MG TAB PO SCH (22:21)
[2017-10-31] MEDS: methylPREDNISolone SOD SUCC 40 MG/1 ML VIAL IV PUSH SCH (22:21)
[2017-10-31] MEDS ORDERED: VANCOMYCIN 1 GM/200 ML PREMIX IV ONE (22:30)
[2017-11-01] VITALS: BP 127/68; PULSE 78; RESP 20; TEMP 97.1; O2SAT 95
[2017-11-01 04:00] VITALS: BP 145/77; PULSE 80; RESP 14; TEMP 97.3; O2SAT 97
[2017-11-01] MEDS: methylPREDNISolone SOD SUCC 40 MG/1 ML VIAL IV PUSH SCH ×3 (05:27→18:24)
[2017-11-01] MEDS: LEVOTHYROXINE SODIUM 50 MCG TAB PO SCH (05:27)
[2017-11-01 07:35] LABS: BASOPHIL % 0.1 % (0.0-2.0); HEMATOCRIT 36.2 % (35.0-46.0); HEMOGLOBIN 12.3 GM/DL (11.6-15.3); LYMPH % 7.8 % (9.0-44.0); LYMPHOCYTE # 1.1 TH/MM3 (1.0-4.8); MEAN CELL VOLUME 91.1 FL (80.0-100.0); MEAN CORPUSCULAR HEMOGLOBIN 30.9 PG (27.0-34.0); MEAN CORPUSCULAR HGB CONC 33.9 % (32.0-36.0); MEAN PLATELET VOLUME 6.9 FL (7.0-11.0); MONO % 3.7 % (0.0-8.0); MONOCYTE # 0.5 TH/MM3 (0-0.9); NEUT % 88.4 % (16.0-70.0); PLATELET COUNT 519 TH/MM3 (150-450); RED BLOOD COUNT 3.97 MIL/MM3 (4.00-5.30); WHITE BLOOD COUNT 13.5 TH/MM3 (4.0-11.0)
[2017-11-01 08:00] VITALS: BP_SYST 104; BP_SYST 98; BP_DIAS 51; BP_DIAS 60; PULSE 82; PULSE 99; RESP 16; RESP 18; TEMP 97.6; O2SAT 95; O2SAT 96
[2017-11-01 08:26] LABS: ALBUMIN 2.2 GM/DL (3.4-5.0); ALKALINE PHOSPHATASE 98 U/L (45-117); ALT (GPT) 77 U/L (10-53); AST (GOT) 36 U/L (15-37); BICARBONATE 29.3 MEQ/L (21.0-32.0); BLOOD UREA NITROGEN 10 MG/DL (7-18); CALCIUM 8.4 MG/DL (8.5-10.1); CHLORIDE 100 MEQ/L (98-107); GLOMERULAR FILTRATION RATE 215 ML/MIN (>89); GLUCOSE,RANDOM 125 MG/DL (74-106); SODIUM (NA) 136 MEQ/L (136-145); TOTAL BILIRUBIN ADULT 0.2 MG/DL (0.2-1.0); TOTAL PROTEIN 6.5 GM/DL (6.4-8.2)
[2017-11-01] MEDS: guaiFENesin E.R. 600 MG TAB PO SCH ×2 (08:50→20:01)
[2017-11-01] MEDS: CYANOCOBALAMIN 1,000 MCG TAB PO SCH (08:51)
[2017-11-01] MEDS: DOCUSATE SODIUM 50 MG/SENNA 8.6 MG TAB PO SCH ×2 (08:51→20:01)
[2017-11-01] MEDS: PANTOPRAZOLE SOD 20 MG DELAYED RELEASE TAB PO SCH (08:52)
[2017-11-01] MEDS: CHOLECALCIFEROL (VIT D3) 1000 UNIT TAB PO SCH (08:52)
[2017-11-01] MEDS: SODIUM CHLORIDE 0.9% FLUSH 10 ML FLUSH IV FLUSH SCH ×2 (08:53→20:02)
[2017-11-01] MEDS ORDERED: LEVOFLOXACIN 750 MG PREMIX INJ 150 ML IV SCH (09:00)
[2017-11-01] MEDS: VANCOMYCIN 500 MG/NS 100 ML IV SCH ×4 (09:00→22:56)
[2017-11-01] MEDS ORDERED: CEFEPIME INJ 1,000 MG in SODIUM CHLORIDE 0.9% INJ 100 ML IV SCH (09:00)
[2017-11-01] MEDS ORDERED: Vancomycin Consult Pharmacy 1 EA OTHER SCH (09:00)
[2017-11-01] MEDS: BUDESONIDE-FORMOTEROL 160/4.5 MCG INHALER INH SCH ×2 (09:00→20:02)
[2017-11-01] MEDS ORDERED: BIOTIN 1000 MCG PO SCH (09:00)
[2017-11-01 09:40] LABS: BANDS 2 % (0-6); LYMPHOCYTES 3 % (9-44); METAMYELOCYTES 8 % (0-1); MONOCYTES 2 % (0-8); NEUTROPHIL # MANUAL DIFF 12.8 TH/MM3 (1.8-7.7); POLYS (SEG NEUTROPHILS) 85 % (16-70)
--- NOTE | 2017-11-01 10:23 | HHI.PR ---
Subjective Remarks Patient reports feeling slightly better today. Still having a cough. No fevers . Objective Vitals Vital Signs Date Time Temp Pulse Resp B/P (MAP) Pulse Ox O2 Delivery O2 Flow Rate FiO2 11/01/17 04:00 97.3 80 14 145/77 (99) 97 11/01/17 00:00 97.1 78 20 127/68 (87) 95 10/31/17 21:00 98.4 92 24 102/53 (69) 97 10/31/17 19:36 87 18 140/63 (88) 97 10/31/17 18:48 85 16 140/63 (88) 95 10/31/17 17:42 93 16 94/52 (66) 10/31/17 16:00 95 16 88/56 (67) 95 10/31/17 14:30 92 16 138/58 (84) 95 10/31/17 14:20 93 16 95 Room Air 10/31/17 14:20 98 Nasal Cannula 2.00 10/31/17 13:54 99.4 90 16 135/60 (85) 95 I/O 10/31/17 10/31/17 10/31/17 11/01/17 11/01/17 11/01/17 07:00 15:00 23:00 07:00 15:00 23:00 Intake Total 320 ml Balance 320 ml Intake Oral 120 ml IV Total 200 ml # Voids 2 1 # Bowel Movements 0 1 Result Diagram: 11/01/1762511/01/17 06 Objective Remarks GENERAL: Elderly female in no acute distress CARDIOVASCULAR: Normal rate and regular rhythm without murmurs, gallops, or rubs. RESPIRATORY: Air movement is fair. Diffuse rhonchi. Faint expiratory wheezing. GASTROINTESTINAL: Abdomen soft, non-tender, non-distended. Normal active bowel sounds MUSCULOSKELETAL: Extremities without cyanosis, or edema. NEURO: Alert & Oriented x4 to person, place, time, situation. Moves all ext x4 PSYCH: Appropriate mood and affect. A/P Problem List: (1) COPD (chronic obstructive pulmonary disease) ICD Code: J44.9 - Chronic obstructive pulmonary disease, unspecified (2) PNA (pneumonia) ICD Code: J18.9 - Pneumonia, unspecified organism (3) Failure of outpatient treatment ICD Code: Z78.9 - Other specified health status Assessment and Plan 77 Y/O female with: COPD: Chronic Respiratory Failure w/ Acute Exacerbation. Severe. +wheezing/SOB , continue w/ Solu-Medrol, DuoNeg q4h and q2h prn, Symbicort, Mucinex. - [place] [facility] Dr. Shukla consulted. PNA: Failed Outpatient treatment. CXR w/ new patchy right lower lung airspace disease with trace pleural effusion, concerning for pneumonia versus aspiration. CTA negative for PE, patchy right base consolidation. On Levaquin/ Zosyn/Vanc for HCAP. Consult ID for assistance w/ antibiotic regimen. Follow up Blood Cultures. Consult Dr. Rincon as above. DVT Prophylaxis: SCD/Teds. Sukhjinder Clement MD Nov 01, 2017 10:23
[2017-11-01] MEDS: RESP: ALBUTEROL 2.5 MG/IPRATROPIUM 0.5 MG NEB (PRN) NEB ×2 (10:34→16:12)
--- NOTE | 2017-11-01 13:55 | EKG ---
Date Performed: 10/31/2017 Time Performed: 16:48:44 PTAGE: 77 years EKG: Sinus rhythm WITH OCCASIONAL SUPRAVENTRICULAR PREMATURE COMPLEXES POSSIBLE LEFT ATRIAL ENLARGEMENT POSSIBLE RIGHT VENTRICULAR CONDUCTION DELAY CONSIDER INFERIOR MYOCARDIAL INFARCTION, AGE UNDETERMINATE ABNORMAL ECG PREVIOUS TRACING : 06/27/2017 12.59 DOCTOR: Reji Fatima Interpretating Date/Time 11/01/2017 13:54:38
[2017-11-01 16:00] VITALS: BP 114/64; PULSE 91; RESP 16; TEMP 98; O2SAT 98
[2017-11-01 16:13] VITALS: O2SAT 95
[2017-11-01 18:20] LABS: BACTERIA, URINE MOD /hpf; BILIRUBIN, URINE NEG (NEG); BLOOD, URINE TRACE (NEG); GLUCOSE,URINE NEG (NEG); HYALINE CAST, URINE 1 /lpf (RARE); KETONE, URINE NEG (NEG); NITRITE,URINE NEG (NEG); PH, URINE 6.5 (5.0-8.5); SQUAMOUS EPITHELIAL CELL URINE 1 /hpf (0-5); URINE COLOR LIGHT-YELLOW (YELLW/STRAW); URINE LEUKOCYTE ESTERASE LARGE (NEG)
--- NOTE | 2017-11-01 18:25 | PD.ID.CON ---
History of Present Illness Service ID Consult Requested By Dr Matthews Reason for Consult Pneumonaia Primary Care Physician Mckenzie Rincon MD Diagnoses: History of Present Illness 77 yo female with mult med problems including COPD, CAD, stent placement pt of Dr Rincon Pt is a poor historia: history obtained form pt's daughter and chart review including skilled nursing She developped fever, chills and productive cough and was started on levaquin and Prednisone in the skilled nursing where she resides She was admitted to [facility] with ongoing resp complaints Afebrile, WBC up CTA w/o PE but + for PNA started on cefepime, vancomyucin Review of Systems ROS Limitations: Poor Historian Constitutional: COMPLAINS OF: Fatigue, Fever, Weight loss Respiratory: COMPLAINS OF: Cough, Sputum production Past Family Social History Allergies: Coded Allergies: sulfamethoxazole (Verified Adverse Reaction, Intermediate, VOMITING, ) trimethoprim (Verified Adverse Reaction, Intermediate, VOMITING, 10/31/17) Past Medical History HTN, CAD, COPD and Osteoporosis sp stent placement Past Surgical History Appendectomy, Cataract Surgery, Tonsillectomy, Partial Lung Lobectomy Active Ordered Medications Medications where reviewed in EMR Antibiotics Include: cefepime vanco Family History Reviewed. No h/o DM or CAD Social History Negative for current alcohol, tobacco or drugs. Endorses remote tobacco, but cant tell when she quit Physical Exam Vital Signs Vital Signs Date Time Temp Pulse Resp B/P (MAP) Pulse Ox O2 Delivery O2 Flow Rate FiO2 11/01/17 16:13 95 Nasal Cannula 1.00 11/01/17 08:00 97.6 82 16 104/60 (75) 95 11/01/17 08:00 97.6 99 18 98/51 (67) 96 11/01/17 04:00 97.3 80 14 145/77 (99) 97 11/01/17 00:00 97.1 78 20 127/68 (87) 95 10/31/17 21:00 98.4 92 24 102/53 (69) 97 10/31/17 19:36 87 18 140/63 (88) 97 10/31/17 18:48 85 16 140/63 (88) 95 Physical Exam CONSTITUTIONAL/GENERAL: This is a thin emaciated elderly patient, in no apparent distress. TUBES/LINES/DRAINS: SKIN: No jaundice, rashes, or lesions. Ecchymoses on lowre extremities. No wounds seen anteriorly. Skin temperature appropriate. Not diaphoretic. HEAD: Atraumatic. Normocephalic. EYES: Pupils equal and round and reactive. Extraocular motions intact. No scleral icterus. No injection or drainage. Fundi not examined. ENT: Hearing grossly normal. Nose without bleeding or purulent drainage. Throat without visible erythema, exudates, masses, or lesions. NECK: Trachea midline. Supple, nontender. CARDIOVASCULAR: Regular rate and rhythm without murmurs, gallops, or rubs. No JVD. Peripheral pulses symmetric. RESPIRATORY/CHEST: Symmetric, unlabored respirations. Clear to auscultation. Breath sounds equal bilaterally. BS diminished No wheezes, rales, or rhonchi. GASTROINTESTINAL: Abdomen soft, non-tender, nondistended. No hepato-splenomegaly , or palpable masses. No guarding. Bowel sounds present. GENITOURINARY: Without palpable bladder distension. MUSCULOSKELETAL: Extremities without clubbing, cyanosis, or edema. No joint tenderness or effusion noted. No calf tenderness. No mottling or clubbing. LYMPHATICS: No palpable cervical or supraclavicular adenopathy. NEUROLOGICAL: Awake and alert. Motor and sensory grossly within normal limits. Follows commands. Clear speech, but some lapses in memory are quite evident during interview. Moves all extremities. PSYCHIATRIC: No obvious anxiety/depression. no apparent hallucinations or other psychotic thought process.Very pleasant Laboratory Laboratory Tests Test 11/01/17 06:26 11/01/17 08:45 11/01/17 15:30 White Blood Count 13.5 Red Blood Count 3.97 Hemoglobin 12.3 Hematocrit 36.2 Mean Corpuscular Volume 91.1 Mean Corpuscular Hemoglobin 30.9 Mean Corpuscular Hemoglobin Concent 33.9 Red Cell Distribution Width 14.0 Platelet Count 519 Mean Platelet Volume 6.9 Neutrophils (%) (Auto) 88.4 Lymphocytes (%) (Auto) 7.8 Monocytes (%) (Auto) 3.7 Eosinophils (%) (Auto) 0.0 Basophils (%) (Auto) 0.1 Neutrophils # (Auto) 12.0 Lymphocytes # (Auto) 1.1 Monocytes # (Auto) 0.5 Eosinophils # (Auto) 0.0 Basophils # (Auto) 0.0 CBC Comment AUTO DIFF Differential Total Cells Counted 100 Neutrophils % (Manual) 85 Band Neutrophils % 2 Lymphocytes % 3 Monocytes % 2 Neutrophils # (Manual) 12.8 Metamyelocytes 8 Differential Comment FINAL DIFF MANUAL Platelet Estimate NORMAL Platelet Morphology Comment NORMAL Blood Urea Nitrogen 10 Creatinine 0.30 Random Glucose 125 Total Protein 6.5 Albumin 2.2 Calcium Level 8.4 Alkaline Phosphatase 98 Aspartate Amino Transf (AST/SGOT) 36 Alanine Aminotransferase (ALT/SGPT) 77 Total Bilirubin 0.2 Sodium Level 136 Potassium Level 4.2 Chloride Level 100 Carbon Dioxide Level 29.3 Anion Gap 7 Estimat Glomerular Filtration Rate 215 Vancomycin Level Trough 9.4 Date/Time Source Procedure Growth Status 10/31/17 15:00 Blood Peripheral Aerobic Blood Culture - Preliminary NO GROWTH IN 1 DAY Resulted 10/31/17 15:00 Blood Peripheral Anaerobic Blood Culture - Preliminary NO GROWTH IN 1 DAY Resulted 10/31/17 15:20 Nasal Washing Influenza Types A,B Antigen (TO) - Final NEGATIVE FOR FLU A AND B ANTIGEN.... Complete Result Diagram: 11/01/17 0626 11/01/17 [address] Angiography 10/31/17 1615 Signed Impressions: Service Date/Time: Tuesday, October 31, 2017 18:07 - CONCLUSION: 1. Negative for pulmonary embolism. 2. Patchy right basilar airspace consolidation most characteristic of pneumonia or aspiration. Small right effusion. 3. Postoperative left upper lobectomy with extensive pleural and parenchymal scarring in both upper lungs, worse on the left. Jesus Nolasco MD Chest X-Ray 10/31/17 1444 Signed Impressions: Service Date/Time: Tuesday, October 31, 2017 15:14 - CONCLUSION: 1. Stable postoperative features in the left lung apex with chronic apparent pleural-parenchymal scarring. 2. Stable mild pleural thickening versus trace pleural effusion near the left lung base. 3. New patchy right lower lung zone airspace disease and associated trace pleural effusion versus pleural thickening. Findings are concerning for developing pneumonia versus aspiration given above history. Johnny Rivero MD Assessment and Plan Assessment and Plan PNA COPD azithro cefepime cont vanco for now sputum clx AFB sputum Monik Fatima MD Nov 01, 2017 18:25
[2017-11-01] MEDS ORDERED: AZITHROMYCIN INJ 500 MG in SODIUM CHLOR 0.9% 250 ML INJ 250 ML IV SCH (19:00)
[2017-11-01] MEDS ORDERED: cefTRIAXone INJ 1,000 MG in SODIUM CHLORIDE 0.9% INJ 100 ML IV SCH (19:00)
[2017-11-01 20:00] VITALS: BP 87/53; PULSE 92; RESP 16; TEMP 97.9; O2SAT 93
[2017-11-01] MEDS: AZITHROMYCIN INJ 500 MG in SODIUM CHLOR 0.9% 250 ML INJ 250 ML IV SCH (20:02)
--- NOTE | 2017-11-01 23:53 | HHI.PR ---
Subjective Remarks ALERT LESS SOB Objective Vital Signs Date Time Temp Pulse Resp B/P (MAP) Pulse Ox O2 Delivery O2 Flow Rate FiO2 11/01/17 20:00 97.9 92 16 87/53 (64) 93 11/01/17 16:13 95 Nasal Cannula 1.00 11/01/17 16:00 98.0 91 16 114/64 (81) 98 11/01/17 08:00 97.6 82 16 104/60 (75) 95 11/01/17 08:00 97.6 99 18 98/51 (67) 96 11/01/17 04:00 97.3 80 14 145/77 (99) 97 11/01/17 00:00 97.1 78 20 127/68 (87) 95 I/O 11/01/17 11/01/17 11/01/17 11/02/17 11/02/17 11/02/17 07:00 15:00 23:00 07:00 15:00 23:00 Intake Total 320 ml Balance 320 ml Intake Oral 120 ml IV Total 200 ml # Voids 2 1 2 # Bowel Movements 0 1 1 Result Diagram: 11/01/1762511/01/17625 Objective Remarks GENERAL: SKIN: Warm and dry. HEAD: Atraumatic. Normocephalic. EYES: Pupils equal and round. No scleral icterus. No injection or drainage. ENT: No nasal bleeding or discharge. Mucous membranes pink and moist. NECK: Trachea midline. No JVD. CARDIOVASCULAR: Regular rate and rhythm. RESPIRATORY: No accessory muscle use. Clear to auscultation. Breath sounds equal bilaterally. GASTROINTESTINAL: Abdomen soft, non-tender, nondistended. Hepatic and splenic margins not palpable. MUSCULOSKELETAL: Extremities without clubbing, cyanosis, or edema. No obvious deformities. NEUROLOGICAL: Awake and alert. No obvious cranial nerve deficits. Motor grossly within normal limits. Five out of 5 muscle strength in the arms and legs. Normal speech. PSYCHIATRIC: Appropriate mood and affect; insight and judgment normal. Assessment and Plan Assessment and Plan ASS COPD BRONCHIECTASIS PLAN O2 ASW NEEDED ANTIBX BRONCHODILATOR THERAPY Mckenzie Rincon MD Nov 01, 2017 23:53
[2017-11-02] VITALS (8 sets, daily range): BP systolic 112–131; BP diastolic 58–67; PULSE 80–99; RESP 15–16; TEMP 96–97.5; O2SAT 96–98
[2017-11-02] MEDS: methylPREDNISolone SOD SUCC 40 MG/1 ML VIAL IV PUSH SCH ×5 (00:39→23:56)
[2017-11-02] MEDS: CEFEPIME INJ 2,000 MG in SODIUM CHLORIDE 0.9% INJ 100 ML IV SCH ×3 (00:39→17:00)
[2017-11-02] MEDS: LEVOTHYROXINE SODIUM 50 MCG TAB PO SCH (05:25)
[2017-11-02] MEDS ORDERED: PHARMACY ORDERED LAB ONE (08:45)
[2017-11-02] MEDS: SODIUM CHLORIDE 0.9% FLUSH 10 ML FLUSH IV FLUSH SCH ×2 (09:00→21:00)
[2017-11-02] MEDS: CYANOCOBALAMIN 1,000 MCG TAB PO SCH (09:00)
[2017-11-02] MEDS: VANCOMYCIN 500 MG/NS 100 ML IV SCH ×2 (09:03)
[2017-11-02] MEDS: DOCUSATE SODIUM 50 MG/SENNA 8.6 MG TAB PO SCH ×2 (09:04→21:25)
[2017-11-02] MEDS: PANTOPRAZOLE SOD 20 MG DELAYED RELEASE TAB PO SCH (09:04)
[2017-11-02] MEDS: guaiFENesin E.R. 600 MG TAB PO SCH ×2 (09:04→21:25)
[2017-11-02] MEDS: CHOLECALCIFEROL (VIT D3) 1000 UNIT TAB PO SCH (09:04)
[2017-11-02] MEDS: BUDESONIDE-FORMOTEROL 160/4.5 MCG INHALER INH SCH ×2 (09:10→21:25)
[2017-11-02] MEDS: RESP: ALBUTEROL 2.5 MG/IPRATROPIUM 0.5 MG NEB (PRN) NEB ×2 (10:17→13:43)
--- NOTE | 2017-11-02 13:28 | HHI.PR ---
Subjective Remarks Patient reports she is feeling slightly better. Breathing treatments are helping. Less short of breath. Objective Vitals Vital Signs Date Time Temp Pulse Resp B/P (MAP) Pulse Ox O2 Delivery O2 Flow Rate FiO2 11/02/17 10:17 96 11/02/17 08:00 97.2 80 16 117/67 (84) 96 11/02/17 04:00 96.4 85 15 120/64 (82) 98 11/02/17 00:00 96.7 83 16 124/59 (80) 97 11/01/17 20:00 97.9 92 16 87/53 (64) 93 11/01/17 16:13 95 Nasal Cannula 1.00 11/01/17 16:00 98.0 91 16 114/64 (81) 98 I/O 11/01/17 11/01/17 11/01/17 11/02/17 11/02/17 11/02/17 06:59 14:59 22:59 06:59 14:59 22:59 Intake Total 320 ml 400 ml Balance 320 ml 400 ml Intake Oral 120 ml 400 ml IV Total 200 ml # Voids 2 1 2 # Bowel Movements 0 1 1 Result Diagram: 11/01/1762511/01/17 06 Objective Remarks GENERAL: Elderly female in no acute distress CARDIOVASCULAR: Normal rate and regular rhythm without murmurs, gallops, or rubs. RESPIRATORY: Diffuse rhonchi. Faint expiratory wheezing. Slightly better air movement. GASTROINTESTINAL: Abdomen soft, non-tender, non-distended. Normal active bowel sounds MUSCULOSKELETAL: Extremities without cyanosis, or edema. NEURO: Alert & Oriented x4 to person, place, time, situation. Moves all ext x4 PSYCH: Appropriate mood and affect. A/P Problem List: (1) COPD (chronic obstructive pulmonary disease) ICD Code: J44.9 - Chronic obstructive pulmonary disease, unspecified (2) PNA (pneumonia) ICD Code: J18.9 - Pneumonia, unspecified organism (3) Failure of outpatient treatment ICD Code: Z78.9 - Other specified health status Assessment and Plan 77 Y/O female with: COPD: Chronic Respiratory Failure w/ Acute Exacerbation. Severe. +wheezing/SOB - continue w/ Solu-Medrol, DuoNeg q4h and q2h prn, Symbicort, Mucinex. Supplemental oxygen - On Site Manager Dr. Shukla following. PNA: Failed Outpatient treatment. CXR w/ new patchy right lower lung airspace disease with trace pleural effusion, concerning for pneumonia versus aspiration. CTA negative for PE, patchy right base consolidation. - ID following. Continue antibiotics. Follow sputum culture. DVT Prophylaxis: Start heparin Sukhjinder Clement MD Nov 02, 2017 13:28
[2017-11-02] MEDS ORDERED: RESP: ALBUTEROL 2.5 MG/IPRATROPIUM 0.5 MG NEB (PRN) NEB (16:15)
--- NOTE | 2017-11-02 16:35 | HHI.PR ---
Subjective Remarks ALERT LESS SOB Objective Vital Signs Date Time Temp Pulse Resp B/P (MAP) Pulse Ox O2 Delivery O2 Flow Rate FiO2 11/02/17 12:00 97.0 82 16 114/58 (76) 97 11/02/17 10:17 96 11/02/17 08:00 97.2 80 16 117/67 (84) 96 11/02/17 04:00 96.4 85 15 120/64 (82) 98 11/02/17 00:00 96.7 83 16 124/59 (80) 97 11/01/17 20:00 97.9 92 16 87/53 (64) 93 I/O 11/01/17 11/01/17 11/01/17 11/02/17 11/02/17 11/02/17 07:00 15:00 23:00 07:00 15:00 23:00 Intake Total 320 ml 400 ml Balance 320 ml 400 ml Intake Oral 120 ml 400 ml IV Total 200 ml # Voids 2 1 2 # Bowel Movements 0 1 1 Result Diagram: 11/01/1762511/01/17625 Objective Remarks GENERAL: SKIN: Warm and dry. HEAD: Atraumatic. Normocephalic. EYES: Pupils equal and round. No scleral icterus. No injection or drainage. ENT: No nasal bleeding or discharge. Mucous membranes pink and moist. NECK: Trachea midline. No JVD. CARDIOVASCULAR: Regular rate and rhythm. RESPIRATORY: No accessory muscle use. Clear to auscultation. Breath sounds equal bilaterally. GASTROINTESTINAL: Abdomen soft, non-tender, nondistended. Hepatic and splenic margins not palpable. MUSCULOSKELETAL: Extremities without clubbing, cyanosis, or edema. No obvious deformities. NEUROLOGICAL: Awake and alert. No obvious cranial nerve deficits. Motor grossly within normal limits. Five out of 5 muscle strength in the arms and legs. Normal speech. PSYCHIATRIC: Appropriate mood and affect; insight and judgment normal. Assessment and Plan Assessment and Plan ASS COPD BRONCHIECTASIS PLAN O2 ASW NEEDED ANTIBX BRONCHODILATOR THERAPY Mckenzie Rincon MD Nov 02, 2017 16:35
[2017-11-02] MEDS ORDERED: RESP: ALBUTEROL 2.5 MG/IPRATROPIUM 0.5 MG NEB (SCH) ONE (16:55)
[2017-11-02] MEDS: RESP: ALBUTEROL 2.5 MG/IPRATROPIUM 0.5 MG NEB (SCH) NEB ×2 (16:56→19:41)
[2017-11-02] MEDS: HEPARIN SODIUM - SQ 10,000 UNITS/ML VIAL SQ SCH (17:33)
[2017-11-02] MEDS: AZITHROMYCIN INJ 500 MG in SODIUM CHLOR 0.9% 250 ML INJ 250 ML IV SCH (18:18)
[2017-11-02] MEDS: VANCOMYCIN INJ 750 MG in SODIUM CHLOR 0.9% 250 ML INJ 250 ML IV SCH (21:25)
[2017-11-03] VITALS (7 sets, daily range): BP systolic 111–161; BP diastolic 54–79; PULSE 67–82; RESP 16–18; TEMP 97.7–98.2; O2SAT 93–98
[2017-11-03] MEDS: CEFEPIME INJ 2,000 MG in SODIUM CHLORIDE 0.9% INJ 100 ML IV SCH ×3 (01:01→17:48)
[2017-11-03] MEDS: methylPREDNISolone SOD SUCC 40 MG/1 ML VIAL IV PUSH SCH (05:20)
[2017-11-03] MEDS: LEVOTHYROXINE SODIUM 50 MCG TAB PO SCH (05:21)
[2017-11-03] MEDS: HEPARIN SODIUM - SQ 10,000 UNITS/ML VIAL SQ SCH ×3 (05:21→23:00)
[2017-11-03 07:14] LABS: HEMATOCRIT 36.6 % (35.0-46.0); HEMOGLOBIN 11.9 GM/DL (11.6-15.3); MEAN CELL VOLUME 91.6 FL (80.0-100.0); MEAN CORPUSCULAR HEMOGLOBIN 29.7 PG (27.0-34.0); MEAN CORPUSCULAR HGB CONC 32.5 % (32.0-36.0); PLATELET COUNT 414 TH/MM3 (150-450); RED CELL DISTRIBUTION WIDTH 14.1 % (11.6-17.2); WHITE BLOOD COUNT 17.4 TH/MM3 (4.0-11.0)
[2017-11-03 07:48] LABS: BICARBONATE 28.1 MEQ/L (21.0-32.0); CREATININE 0.4 MG/DL (0.50-1.00)
[2017-11-03] MEDS: RESP: ALBUTEROL 2.5 MG/IPRATROPIUM 0.5 MG NEB (SCH) NEB ×4 (08:16→20:00)
[2017-11-03] MEDS ORDERED: PHARMACY ORDERED LAB ONE (08:45)
[2017-11-03] MEDS: BUDESONIDE-FORMOTEROL 160/4.5 MCG INHALER INH SCH ×2 (09:00→20:16)
[2017-11-03] MEDS: CYANOCOBALAMIN 1,000 MCG TAB PO SCH (09:00)
[2017-11-03] MEDS: DOCUSATE SODIUM 50 MG/SENNA 8.6 MG TAB PO SCH ×2 (09:11→20:13)
[2017-11-03] MEDS: CHOLECALCIFEROL (VIT D3) 1000 UNIT TAB PO SCH (09:11)
[2017-11-03] MEDS: PANTOPRAZOLE SOD 20 MG DELAYED RELEASE TAB PO SCH (09:11)
[2017-11-03] MEDS: guaiFENesin E.R. 600 MG TAB PO SCH ×2 (09:11→20:13)
[2017-11-03] MEDS: SODIUM CHLORIDE 0.9% FLUSH 10 ML FLUSH IV FLUSH SCH ×2 (09:14→20:13)
[2017-11-03] MEDS: VANCOMYCIN INJ 750 MG in SODIUM CHLOR 0.9% 250 ML INJ 250 ML IV SCH ×2 (10:47→21:09)
--- NOTE | 2017-11-03 13:31 | HHI.PR ---
Subjective Remarks Patient reports she is feeling better from a respiratory standpoint she is intermittently on 2 L nasal cannula. No chest pain. However she is debilitated and agree with PT recommendation for rehabilitation. Discussed with patient and her daughter at bedside. They are in agreement. Objective Vitals Vital Signs Date Time Temp Pulse Resp B/P (MAP) Pulse Ox O2 Delivery O2 Flow Rate FiO2 11/03/17 08:18 98 Nasal Cannula 2.00 11/03/17 08:00 98.2 82 17 133/78 (96) 93 11/03/17 04:00 97.7 82 16 121/79 (93) 98 11/03/17 00:00 97.9 80 16 122/67 (85) 97 11/02/17 20:00 96.0 99 15 131/64 (86) 98 11/02/17 16:56 96 21 11/02/17 16:00 97.5 85 16 112/59 (76) 97 I/O 11/02/17 11/02/17 11/02/17 11/03/17 11/03/17 11/03/17 07:00 15:00 23:00 07:00 15:00 23:00 Intake Total 1100 ml Balance 1100 ml Intake Oral 1100 ml # Voids 6 1 Result Diagram: 11/03/1735 11/03/17 0635 Objective Remarks GENERAL: Elderly female in no acute distress CARDIOVASCULAR: Normal rate and regular rhythm without murmurs, gallops, or rubs. RESPIRATORY: Mostly clear to auscultation bilaterally, some faint/scattered rhonchi. Much better air movement. GASTROINTESTINAL: Abdomen soft, non-tender, non-distended. Normal active bowel sounds MUSCULOSKELETAL: Extremities without cyanosis, or edema. NEURO: Alert & Oriented x4 to person, place, time, situation. Moves all ext x4 PSYCH: Appropriate mood and affect. A/P Problem List: (1) COPD (chronic obstructive pulmonary disease) ICD Code: J44.9 - Chronic obstructive pulmonary disease, unspecified (2) PNA (pneumonia) ICD Code: J18.9 - Pneumonia, unspecified organism (3) Failure of outpatient treatment ICD Code: Z78.9 - Other specified health status Assessment and Plan 77 Y/O female with: COPD: Chronic Respiratory Failure w/ Acute Exacerbation. Severe. +wheezing/SOB -Much improved. Transition to oral prednisone, DuoNeg q4h and q2h prn, Symbicort, Mucinex. Supplemental oxygen - Appreciate Outboard Motor Inspector Dr. Shukla following. PNA: Failed Outpatient treatment. CXR w/ new patchy right lower lung airspace disease with trace pleural effusion, concerning for pneumonia versus aspiration. CTA negative for PE, patchy right base consolidation. - ID following. Continue antibiotics. Follow sputum culture. DVT Prophylaxis: Start heparin Discharge Planning Anticipated to SNF tomorrow if she continues to improve. Need antibiotics guidance from ID. Sukhjinder Clement MD Nov 03, 2017 13:31
--- NOTE | 2017-11-03 16:33 | HHI.PR ---
Subjective Remarks ALERT LESS SOB Objective GENERAL: SKIN: Warm and dry. HEAD: Atraumatic. Normocephalic. EYES: Pupils equal and round. No scleral icterus. No injection or drainage. ENT: No nasal bleeding or discharge. Mucous membranes pink and moist. NECK: Trachea midline. No JVD. CARDIOVASCULAR: Regular rate and rhythm. RESPIRATORY: No accessory muscle use. Clear to auscultation. Breath sounds equal bilaterally. GASTROINTESTINAL: Abdomen soft, non-tender, nondistended. Hepatic and splenic margins not palpable. MUSCULOSKELETAL: Extremities without clubbing, cyanosis, or edema. No obvious deformities. NEUROLOGICAL: Awake and alert. No obvious cranial nerve deficits. Motor grossly within normal limits. Five out of 5 muscle strength in the arms and legs. Normal speech. PSYCHIATRIC: Appropriate mood and affect; insight and judgment normal. Vital Signs Date Time Temp Pulse Resp B/P (MAP) Pulse Ox O2 Delivery O2 Flow Rate FiO2 11/03/17 12:00 98.1 80 17 130/76 (94) 94 11/03/17 08:18 98 Nasal Cannula 2.00 11/03/17 08:00 98.2 82 17 133/78 (96) 93 11/03/17 04:00 97.7 82 16 121/79 (93) 98 11/03/17 00:00 97.9 80 16 122/67 (85) 97 11/02/17 20:00 96.0 99 15 131/64 (86) 98 11/02/17 16:56 96 21 I/O 11/02/17 11/02/17 11/02/17 11/03/17 11/03/17 11/03/17 07:00 15:00 23:00 07:00 15:00 23:00 Intake Total 1100 ml Balance 1100 ml Intake Oral 1100 ml # Voids 6 1 Result Diagram: 11/03/17 0635 11/03/17 0635 Objective Remarks GENERAL: SKIN: Warm and dry. HEAD: Atraumatic. Normocephalic. EYES: Pupils equal and round. No scleral icterus. No injection or drainage. ENT: No nasal bleeding or discharge. Mucous membranes pink and moist. NECK: Trachea midline. No JVD. CARDIOVASCULAR: Regular rate and rhythm. RESPIRATORY: No accessory muscle use. Clear to auscultation. Breath sounds equal bilaterally. GASTROINTESTINAL: Abdomen soft, non-tender, nondistended. Hepatic and splenic margins not palpable. MUSCULOSKELETAL: Extremities without clubbing, cyanosis, or edema. No obvious deformities. NEUROLOGICAL: Awake and alert. No obvious cranial nerve deficits. Motor grossly within normal limits. Five out of 5 muscle strength in the arms and legs. Normal speech. PSYCHIATRIC: Appropriate mood and affect; insight and judgment normal. Assessment and Plan Assessment and Plan ASS COPD BRONCHIECTASIS DIFFICULTY RAING SECREATION DUE TO PLUGGING PLAN O2 ASW NEEDED ANTIBX BRONCHODILATOR THERAPY BRONCHOSCOPY AM Mckenzie,Mckenzie Moran MD Nov 03, 2017 16:33
[2017-11-03] MEDS ORDERED: SODIUM CHLOR 0.45% 1000 ML INJ 1,000 ML IV SCH (17:00)
[2017-11-03 19:00] LABS: INTERNATIONAL NORMALIZED RATIO 1.1 RATIO; PROTHROMBIN TIME - PATIENT 10.7 SEC (9.8-11.6)
[2017-11-03] MEDS: AZITHROMYCIN INJ 500 MG in SODIUM CHLOR 0.9% 250 ML INJ 250 ML IV SCH (19:26)
[2017-11-03] MEDS: predniSONE 20 MG TAB PO SCH (20:13)
[2017-11-03] MEDS ORDERED: CHLORHEXIDINE GLUCONATE 2 % 1 PACK (2 CLOTHS) TOPICAL PRN (22:15)
[2017-11-03] MEDS ORDERED: POVIDONE IODINE 5% (ANTISEPSIS KIT) 4 APPLICATIONS EACH NARE PRN (22:15)
[2017-11-03] MEDS ORDERED: LACTATED RINGER'S 1000 ML IV PRN (22:15)
[2017-11-03] MEDS ORDERED: SODIUM CHLORID 0.9% 500 ML IV PRN (22:15)
[2017-11-04] VITALS (7 sets, daily range): BP systolic 125–174; BP diastolic 67–86; PULSE 75–84; RESP 17–19; TEMP 96.7–98.1; O2SAT 92–100
[2017-11-04] MEDS: CEFEPIME INJ 2,000 MG in SODIUM CHLORIDE 0.9% INJ 100 ML IV SCH ×3 (00:30→18:12)
[2017-11-04] MEDS: LEVOTHYROXINE SODIUM 50 MCG TAB PO SCH (05:39)
[2017-11-04] MEDS: CYANOCOBALAMIN 1,000 MCG TAB PO SCH (09:00)
[2017-11-04] MEDS: SODIUM CHLORIDE 0.9% FLUSH 10 ML FLUSH IV FLUSH SCH ×2 (09:00→20:48)
[2017-11-04] MEDS: predniSONE 20 MG TAB PO SCH ×2 (09:04→20:47)
[2017-11-04] MEDS: DOCUSATE SODIUM 50 MG/SENNA 8.6 MG TAB PO SCH ×2 (09:04→20:47)
[2017-11-04] MEDS: guaiFENesin E.R. 600 MG TAB PO SCH ×2 (09:04→20:47)
[2017-11-04] MEDS: CHOLECALCIFEROL (VIT D3) 1000 UNIT TAB PO SCH (09:04)
[2017-11-04] MEDS: PANTOPRAZOLE SOD 20 MG DELAYED RELEASE TAB PO SCH (09:04)
[2017-11-04] MEDS: VANCOMYCIN INJ 750 MG in SODIUM CHLOR 0.9% 250 ML INJ 250 ML IV SCH ×2 (09:05→20:48)
[2017-11-04] MEDS: BUDESONIDE-FORMOTEROL 160/4.5 MCG INHALER INH SCH ×2 (09:06→20:48)
[2017-11-04] MEDS: RESP: ALBUTEROL 2.5 MG/IPRATROPIUM 0.5 MG NEB (SCH) NEB ×4 (09:14→20:53)
--- NOTE | 2017-11-04 09:14 | HHI.PR ---
Subjective Remarks ALERT LESS SOB Objective Vital Signs Date Time Temp Pulse Resp B/P (MAP) Pulse Ox O2 Delivery O2 Flow Rate FiO2 11/04/17 07:34 97.9 81 19 174/86 (115) 92 11/04/17 04:30 98.1 75 18 136/79 (98) 95 11/03/17 23:58 98.1 81 18 161/72 (101) 95 11/03/17 20:00 97.7 67 17 111/54 (73) 94 11/03/17 12:00 98.1 80 17 130/76 (94) 94 I/O 11/03/17 11/03/17 11/03/17 11/04/17 11/04/17 11/04/17 07:00 15:00 23:00 07:00 15:00 23:00 Intake Total 480 ml 0 ml Balance 480 ml 0 ml Intake Oral 480 ml 0 ml # Voids 1 1 5 # Bowel Movements 0 0 Result Diagram: 11/03/1735 11/03/17 0635 Objective Remarks GENERAL: SKIN: Warm and dry. HEAD: Atraumatic. Normocephalic. EYES: Pupils equal and round. No scleral icterus. No injection or drainage. ENT: No nasal bleeding or discharge. Mucous membranes pink and moist. NECK: Trachea midline. No JVD. CARDIOVASCULAR: Regular rate and rhythm. RESPIRATORY: No accessory muscle use. Clear to auscultation. Breath sounds equal bilaterally. GASTROINTESTINAL: Abdomen soft, non-tender, nondistended. Hepatic and splenic margins not palpable. MUSCULOSKELETAL: Extremities without clubbing, cyanosis, or edema. No obvious deformities. NEUROLOGICAL: Awake and alert. No obvious cranial nerve deficits. Motor grossly within normal limits. Five out of 5 muscle strength in the arms and legs. Normal speech. PSYCHIATRIC: Appropriate mood and affect; insight and judgment normal. Assessment and Plan Assessment and Plan ASS COPD BRONCHIECTASIS DIFFICULTY RAISING SECRETION DUE TO PLUGGING PLAN O2 ASW NEEDED ANTIBX BRONCHODILATOR THERAPY BRONCHOSCOPY TODAY Mckenzie Rincon MD Nov 04, 2017 09:14
[2017-11-04] MEDS ORDERED: D5-1/2 NS + KCL 20 MEQ INJ 1,000 ML IV SCH (09:30)
[2017-11-04] MEDS ORDERED: DEXAMETHASONE SOD PHOS 4 MG/ML VIAL IV ONE (12:00)
[2017-11-04] MEDS ORDERED: ONDANSETRON HCL 4 MG/2 ML VIAL IV ONE (12:00)
[2017-11-04] MEDS ORDERED: LIDOCAINE HCL 1% PF 5 ML SYRINGE OTHER ONE (12:00)
[2017-11-04] MEDS ORDERED: PROPOFOL 200 MG/20 ML AMP IV ONE (12:00)
[2017-11-04] MEDS ORDERED: PHENYLEPH/NS 1000 MCG/10 ML SYR IV ONE (12:00)
--- NOTE | 2017-11-04 14:13 | HHI.PR ---
Subjective Remarks off the floor- bronchoscopy seen 6 :30 pm- back from bronchoscopy no complains of pain - states "they got junk out " Objective Vitals Vital Signs Date Time Temp Pulse Resp B/P (MAP) Pulse Ox O2 Delivery O2 Flow Rate FiO2 11/04/17 11:35 97.3 79 18 135/73 (93) 92 11/04/17 09:17 94 21 11/04/17 07:34 97.9 81 19 174/86 (115) 92 11/04/17 04:30 98.1 75 18 136/79 (98) 95 11/03/17 23:58 98.1 81 18 161/72 (101) 95 11/03/17 20:00 97.7 67 17 111/54 (73) 94 I/O 11/03/17 11/03/17 11/03/17 11/04/17 11/04/17 11/04/17 07:00 15:00 23:00 07:00 15:00 23:00 Intake Total 480 ml 0 ml Balance 480 ml 0 ml Intake Oral 480 ml 0 ml # Voids 1 1 5 # Bowel Movements 0 0 Result Diagram: 11/03/17 0635 11/03/17 [address] Angiography 10/31/17 1615 Signed Impressions: Service Date/Time: Tuesday, October 31, 2017 18:07 - CONCLUSION: 1. Negative for pulmonary embolism. 2. Patchy right basilar airspace consolidation most characteristic of pneumonia or aspiration. Small right effusion. 3. Postoperative left upper lobectomy with extensive pleural and parenchymal scarring in both upper lungs, worse on the left. Jesus Nolasco MD Chest X-Ray 10/31/17 1444 Signed Impressions: Service Date/Time: Tuesday, October 31, 2017 15:14 - CONCLUSION: 1. Stable postoperative features in the left lung apex with chronic apparent pleural-parenchymal scarring. 2. Stable mild pleural thickening versus trace pleural effusion near the left lung base. 3. New patchy right lower lung zone airspace disease and associated trace pleural effusion versus pleural thickening. Findings are concerning for developing pneumonia versus aspiration given above history. Johnny Rivero MD Objective Remarks awake and alert anicteric no rales decreased breath sounds no wheezes regular rhythm abdomen soft no edema neuro -exam- unremarkable Procedures 11/04- bronchoscopy A/P Problem List: (1) COPD (chronic obstructive pulmonary disease) ICD Code: J44.9 - Chronic obstructive pulmonary disease, unspecified (2) PNA (pneumonia) ICD Code: J18.9 - Pneumonia, unspecified organism (3) Failure of outpatient treatment ICD Code: Z78.9 - Other specified health status Assessment and Plan 77 Y/O female with: COPD: Chronic Respiratory Failure w/ Acute Exacerbation. - improved - on exam- no wheezing S/P bronchoscopy- -Transition to oral prednisone, DuoNeg q4h and q2h prn, Symbicort, Mucinex. Supplemental oxygen - Appreciate Senior Mechanical Designer Dr. Shukla following. PNA: Failed Outpatient treatment. CXR w/ new patchy right lower lung airspace disease with trace pleural effusion, concerning for pneumonia versus aspiration. CTA negative for PE, patchy right base consolidation. - ID following. Continue antibiotics. Follow sputum culture. DVT Prophylaxis: heparin Tona Hoover MD Nov 04, 2017 14:13
[2017-11-04] MEDS ORDERED: DO NOT ADM ANY ANTICOAGULANT DRUGS PRN (16:29)
[2017-11-04] MEDS ORDERED: *RESP: ALBUTEROL 2.5 MG/3 ML NEB (PRN) PERIprocedural Use ONLY NEB ONE (16:31)
--- NOTE | 2017-11-04 16:38 | MR ---
cc: YOSEF NAVAS M.D. DATE: 11/04/2017 PROCEDURE Fiberoptic bronchoscopy flexible. REASON FOR BRONCHOSCOPY Atelectasis, mucus plugging. DETAILS Fiberoptic bronchoscopy performed through endotracheal tube. Lower trachea mildly hyperemic. Mary Lou sharp. Right mainstem bronchus, right upper, middle and lower lobe, left main bronchus, left upper and lower lobe no obstruction, no mass lesion seen. Washings obtained from both sides of the tracheobronchial tree for routine TB, fungal cultures cytological exam. Cytologic brush biopsies left lower lung lobe obtained for cytological exam. Procedure well tolerated. The patient transferred to recovery in stable condition. IMPRESSION 1. Moderate tracheobronchitis. 2. Excess mucoid secretion and plugging. 3. Samples obtained as above. 4. Procedure well tolerated. 5. The patient transferred to recovery in stable condition. 6. MD XAVI Garay/TEVIN /4:06 PM /4:22 PM
[2017-11-04] MEDS: HEPARIN SODIUM - SQ 10,000 UNITS/ML VIAL SQ SCH (17:00)
[2017-11-04] MEDS: AZITHROMYCIN INJ 500 MG in SODIUM CHLOR 0.9% 250 ML INJ 250 ML IV SCH (18:12)
[2017-11-05] VITALS (8 sets, daily range): BP systolic 95–129; BP diastolic 53–64; PULSE 78–101; RESP 16–17; TEMP 96.1–98.1; O2SAT 94–99
[2017-11-05] MEDS: CEFEPIME INJ 2,000 MG in SODIUM CHLORIDE 0.9% INJ 100 ML IV SCH ×3 (00:19→17:00)
[2017-11-05] MEDS: LEVOTHYROXINE SODIUM 50 MCG TAB PO SCH (05:07)
[2017-11-05] MEDS: RESP: ALBUTEROL 2.5 MG/IPRATROPIUM 0.5 MG NEB (SCH) NEB ×4 (08:23→19:43)
[2017-11-05] MEDS ORDERED: PHARMACY ORDERED LAB ONE (08:45)
[2017-11-05] MEDS: VANCOMYCIN INJ 750 MG in SODIUM CHLOR 0.9% 250 ML INJ 250 ML IV SCH ×2 (08:50→19:49)
[2017-11-05] MEDS: DOCUSATE SODIUM 50 MG/SENNA 8.6 MG TAB PO SCH ×2 (08:51→19:48)
[2017-11-05] MEDS: CHOLECALCIFEROL (VIT D3) 1000 UNIT TAB PO SCH (08:52)
[2017-11-05] MEDS: predniSONE 20 MG TAB PO SCH (08:52)
[2017-11-05] MEDS: PANTOPRAZOLE SOD 20 MG DELAYED RELEASE TAB PO SCH (08:52)
[2017-11-05] MEDS: guaiFENesin E.R. 600 MG TAB PO SCH ×2 (08:52→19:48)
[2017-11-05 08:53] LABS: CREATININE 0.37 MG/DL (0.50-1.00)
[2017-11-05] MEDS: SODIUM CHLORIDE 0.9% FLUSH 10 ML FLUSH IV FLUSH SCH ×2 (08:53→19:48)
[2017-11-05] MEDS: BUDESONIDE-FORMOTEROL 160/4.5 MCG INHALER INH SCH ×2 (08:55→19:49)
[2017-11-05] MEDS: CYANOCOBALAMIN 1,000 MCG TAB PO SCH (09:00)
--- NOTE | 2017-11-05 09:21 | HHI.PR ---
Subjective Remarks ALERT LESS SOB LESS MUCUS POST BRONCHOSCOPY Objective Vital Signs Date Time Temp Pulse Resp B/P (MAP) Pulse Ox O2 Delivery O2 Flow Rate FiO2 11/05/17 08:28 96 Nasal Cannula 1.00 11/05/17 05:00 97.4 78 17 122/64 (83) 99 11/04/17 23:50 97.1 84 17 125/67 (86) 100 11/04/17 20:53 97 Nasal Cannula 2.00 11/04/17 20:48 96.7 83 17 131/69 (89) 94 11/04/17 16:55 97.6 102 16 148/84 (105) 95 Nasal Cannula 2 11/04/17 16:45 105 16 150/86 (107) 94 Nasal Cannula 2 11/04/17 16:30 104 15 157/89 (111) 97 Simple Mask 6 11/04/17 16:25 97.5 103 14 174/83 (113) 95 Simple Mask 6 11/04/17 11:35 97.3 79 18 135/73 (93) 92 I/O 11/04/17 11/04/17 11/04/17 11/05/17 11/05/17 11/05/17 07:00 15:00 23:00 07:00 15:00 23:00 Intake Total 0 ml 0 ml 610 ml 3767 ml Balance 0 ml 0 ml 610 ml 3767 ml Intake Oral 0 ml 0 ml 360 ml 360 ml IV Total 250 ml 3407 ml # Voids 5 10 4 4 # Bowel Movements 0 0 0 Result Diagram: 11/03/17 0635 11/05/17 0758 Objective Remarks GENERAL: SKIN: Warm and dry. HEAD: Atraumatic. Normocephalic. EYES: Pupils equal and round. No scleral icterus. No injection or drainage. ENT: No nasal bleeding or discharge. Mucous membranes pink and moist. NECK: Trachea midline. No JVD. CARDIOVASCULAR: Regular rate and rhythm. RESPIRATORY: No accessory muscle use. Clear to auscultation. Breath sounds equal bilaterally. GASTROINTESTINAL: Abdomen soft, non-tender, nondistended. Hepatic and splenic margins not palpable. MUSCULOSKELETAL: Extremities without clubbing, cyanosis, or edema. No obvious deformities. NEUROLOGICAL: Awake and alert. No obvious cranial nerve deficits. Motor grossly within normal limits. Five out of 5 muscle strength in the arms and legs. Normal speech. PSYCHIATRIC: Appropriate mood and affect; insight and judgment normal. Assessment and Plan Assessment and Plan ASS COPD BRONCHIECTASIS PULMONARY CACHEXIA PLAN O2 NEEDED ANTIBX BRONCHODILATOR THERAPY Mckenzie Rincon MD Nov 05, 2017 09:21
--- NOTE | 2017-11-05 16:38 | HHI.PR ---
Subjective Remarks no complains of fever or chills minimal cough- dry encourage incentive spirometry Objective Vitals Vital Signs Date Time Temp Pulse Resp B/P (MAP) Pulse Ox O2 Delivery O2 Flow Rate FiO2 11/05/17 15:46 99 Nasal Cannula 1.00 11/05/17 12:00 96.9 86 16 95/53 (67) 97 11/05/17 11:40 96 21 11/05/17 08:28 96 Nasal Cannula 1.00 11/05/17 08:00 96.1 101 16 129/60 (83) 98 11/05/17 05:00 97.4 78 17 122/64 (83) 99 11/04/17 23:50 97.1 84 17 125/67 (86) 100 11/04/17 20:53 97 Nasal Cannula 2.00 11/04/17 20:48 96.7 83 17 131/69 (89) 94 11/04/17 16:55 97.6 102 16 148/84 (105) 95 Nasal Cannula 2 11/04/17 16:45 105 16 150/86 (107) 94 Nasal Cannula 2 I/O 11/04/17 11/04/17 11/04/17 11/05/17 11/05/17 11/05/17 07:00 15:00 23:00 07:00 15:00 23:00 Intake Total 0 ml 0 ml 610 ml 3767 ml 600 ml Balance 0 ml 0 ml 610 ml 3767 ml 600 ml Intake Oral 0 ml 0 ml 360 ml 360 ml 600 ml IV Total 250 ml 3407 ml # Voids 5 10 4 4 2 # Bowel Movements 0 0 0 Result Diagram: 11/03/17 0635 11/05/17 [address] Angiography 10/31/17 1615 Signed Impressions: Service Date/Time: Tuesday, October 31, 2017 18:07 - CONCLUSION: 1. Negative for pulmonary embolism. 2. Patchy right basilar airspace consolidation most characteristic of pneumonia or aspiration. Small right effusion. 3. Postoperative left upper lobectomy with extensive pleural and parenchymal scarring in both upper lungs, worse on the left. Jesus Nolasco MD Chest X-Ray 10/31/17 1444 Signed Impressions: Service Date/Time: Tuesday, October 31, 2017 15:14 - CONCLUSION: 1. Stable postoperative features in the left lung apex with chronic apparent pleural-parenchymal scarring. 2. Stable mild pleural thickening versus trace pleural effusion near the left lung base. 3. New patchy right lower lung zone airspace disease and associated trace pleural effusion versus pleural thickening. Findings are concerning for developing pneumonia versus aspiration given above history. Johnny Rivero MD Objective Remarks awake and alert anicteric no rales lungs clear no wheezes regular rhythm abdomen soft no edema neuro -exam- unremarkable Procedures 11/04- bronchoscopy A/P Problem List: (1) COPD (chronic obstructive pulmonary disease) ICD Code: J44.9 - Chronic obstructive pulmonary disease, unspecified (2) PNA (pneumonia) ICD Code: J18.9 - Pneumonia, unspecified organism (3) Failure of outpatient treatment ICD Code: Z78.9 - Other specified health status Assessment and Plan 77 Y/O female with: COPD: Chronic Respiratory Failure w/ Acute Exacerbation. - improved - on exam- no wheezing S/P bronchoscopy- - negative for malignant cells -Transition to oral prednisone,-decrease to 20 mg po daily - DuoNeg q4h and q2h prn, Symbicort, Mucinex. Supplemental oxygen - dr. puckett ff - walk test - may qualify for home 02 PNA: Failed Outpatient treatment. CXR w/ new patchy right lower lung airspace disease with trace pleural effusion S/P bronchoscopy- cytology pending. cultures negative - concerning for pneumonia versus aspiration. CTA negative for PE, patchy right base consolidation. - ID following. Continue antibiotics. - will d/w ID re: DC po antibiotics. DVT Prophylaxis: heparin DC planning tomorrow- hopefully - SNF Deconditioning- PT daily Dietitian consult- cachexia Tona Hoover MD Nov 05, 2017 16:38
[2017-11-06] VITALS (7 sets, daily range): BP systolic 100–165; BP diastolic 58–79; PULSE 78–92; RESP 16–18; TEMP 96.7–98.9; O2SAT 94–98
[2017-11-06] MEDS: CEFEPIME INJ 2,000 MG in SODIUM CHLORIDE 0.9% INJ 100 ML IV SCH ×2 (00:03→09:31)
[2017-11-06] MEDS: LEVOTHYROXINE SODIUM 50 MCG TAB PO SCH (04:05)
--- NOTE | 2017-11-06 07:38 | HHI.PR ---
Subjective Remarks feeling better minimal cough, minimal sputum loooiing forward to SNF- "my daughter checked out the place" Objective Vitals Vital Signs Date Time Temp Pulse Resp B/P (MAP) Pulse Ox O2 Delivery O2 Flow Rate FiO2 11/06/17 06:10 98.7 86 17 134/67 (89) 94 11/06/17 00:05 98.3 83 16 130/61 (84) 95 11/05/17 21:17 98.1 85 16 107/54 (71) 94 11/05/17 19:49 94 Nasal Cannula 2.00 11/05/17 16:00 96.6 92 16 118/56 (76) 99 11/05/17 15:46 99 Nasal Cannula 1.00 11/05/17 12:00 96.9 86 16 95/53 (67) 97 11/05/17 11:40 96 21 11/05/17 08:28 96 Nasal Cannula 1.00 11/05/17 08:00 96.1 101 16 129/60 (83) 98 I/O 11/05/17 11/05/17 11/05/17 11/06/17 11/06/17 11/06/17 07:00 15:00 23:00 07:00 15:00 23:00 Intake Total 3767 ml 1937.5 ml 580 ml Balance 3767 ml 1937.5 ml 580 ml Intake Oral 360 ml 1680 ml 480 ml IV Total 3407 ml 257.5 ml 100 ml # Voids 4 8 4 # Bowel Movements 0 1 0 Result Diagram: 11/03/17 0635 11/05/17 [address] Angiography 10/31/17 1615 Signed Impressions: Service Date/Time: Tuesday, October 31, 2017 18:07 - CONCLUSION: 1. Negative for pulmonary embolism. 2. Patchy right basilar airspace consolidation most characteristic of pneumonia or aspiration. Small right effusion. 3. Postoperative left upper lobectomy with extensive pleural and parenchymal scarring in both upper lungs, worse on the left. Jesus Nolasco MD Chest X-Ray 10/31/17 1444 Signed Impressions: Service Date/Time: Tuesday, October 31, 2017 15:14 - CONCLUSION: 1. Stable postoperative features in the left lung apex with chronic apparent pleural-parenchymal scarring. 2. Stable mild pleural thickening versus trace pleural effusion near the left lung base. 3. New patchy right lower lung zone airspace disease and associated trace pleural effusion versus pleural thickening. Findings are concerning for developing pneumonia versus aspiration given above history. Johnny Rivero MD Objective Remarks awake and alert, oriented x 3 , interactive anicteric no rales lungs clear no wheezes regular rhythm abdomen soft no edema neuro moves all extremities spontaenously Procedures 11/04- bronchoscopy A/P Problem List: (1) COPD (chronic obstructive pulmonary disease) ICD Code: J44.9 - Chronic obstructive pulmonary disease, unspecified (2) PNA (pneumonia) ICD Code: J18.9 - Pneumonia, unspecified organism (3) Failure of outpatient treatment ICD Code: Z78.9 - Other specified health status Assessment and Plan 77 Y/O female with: COPD: Chronic Respiratory Failure w/ Acute Exacerbation. - improved - on exam- no wheezing S/P bronchoscopy- - negative for malignant cells -Transition to oral prednisone,- 20 mg po daily starting today 11/06- gradual taper - DuoNeg q4h and q2h prn, Symbicort, Mucinex. Supplemental oxygen - Dr.. puckett ff - walk test - if qualify for home 02 PNA: Failed Outpatient treatment. CXR w/ new patchy right lower lung airspace disease with trace pleural effusion S/P bronchoscopy- cytology pending. cultures negative - concerning for pneumonia versus aspiration. CTA negative for PE, patchy right base consolidation. - ID following. Continue antibiotics. - will d/w ID re: DC po antibiotics. Diet- suuopllemental Ensure enlive bid DVT Prophylaxis: heparin DC SNF today- [facility] Deconditioning- will need - PT daily Tona Hoover MD Nov 06, 2017 07:38
[2017-11-06] MEDS: RESP: ALBUTEROL 2.5 MG/IPRATROPIUM 0.5 MG NEB (SCH) NEB ×3 (07:42→15:49)
[2017-11-06] MEDS ORDERED: AMOXICILLIN/CLAVULANATE K 875 MG TAB PO SCH ×2 (07:45→14:45)
[2017-11-06] MEDS ORDERED: predniSONE 20 MG TAB PO SCH (09:00)
[2017-11-06] MEDS: BUDESONIDE-FORMOTEROL 160/4.5 MCG INHALER INH SCH (09:00)
[2017-11-06] MEDS: CYANOCOBALAMIN 1,000 MCG TAB PO SCH (09:00)
[2017-11-06] MEDS: guaiFENesin E.R. 600 MG TAB PO SCH (09:00)
[2017-11-06] MEDS: CHOLECALCIFEROL (VIT D3) 1000 UNIT TAB PO SCH (09:31)
[2017-11-06] MEDS: PANTOPRAZOLE SOD 20 MG DELAYED RELEASE TAB PO SCH (09:32)
[2017-11-06] MEDS: SODIUM CHLORIDE 0.9% FLUSH 10 ML FLUSH IV FLUSH SCH (09:33)
[2017-11-06] MEDS: DOCUSATE SODIUM 50 MG/SENNA 8.6 MG TAB PO SCH (09:33)
[2017-11-06] MEDS ORDERED: PHARMACY ORDERED LAB ONE (10:30)
--- NOTE | 2017-11-06 13:41 | HHI.IDPN ---
Subjective Subjective Remarks " I feel better" breathing better, improved cough no fever no new c/o Bronch was negative expectorated spuitum with nl resp vincent Antibiotics azithro cefepime vancomycin Allergies: Coded Allergies: sulfamethoxazole (Verified Adverse Reaction, Intermediate, VOMITING, ) trimethoprim (Verified Adverse Reaction, Intermediate, VOMITING, 10/31/17) Objective . Vital Signs Date Time Temp Pulse Resp B/P (MAP) Pulse Ox O2 Delivery O2 Flow Rate FiO2 11/06/17 12:02 Room Air 11/06/17 11:34 98.9 78 18 139/71 (93) 98 11/06/17 10:40 Nasal Cannula 2.00 11/06/17 08:00 98.0 81 18 165/79 (107) 97 11/06/17 07:43 96 21 11/06/17 06:10 98.7 86 17 134/67 (89) 94 11/06/17 00:05 98.3 83 16 130/61 (84) 95 11/05/17 21:17 98.1 85 16 107/54 (71) 94 11/05/17 19:49 94 Nasal Cannula 2.00 11/05/17 16:00 96.6 92 16 118/56 (76) 99 11/05/17 15:46 99 Nasal Cannula 1.00 . Laboratory Tests Test 11/05/17 07:58 Creatinine 0.37 MG/DL Estimat Glomerular Filtration Rate 168 ML/MIN Microbiology Date/Time Source Procedure Growth Status 11/04/17 16:02 Bronchial Washings Bronchial Fungal Smear - Final NO FUNGAL ELEMENTS SEEN. Resulted 11/04/17 16:02 Bronchial Washings Bronchial Fungal Culture Pending Resulted 11/04/17 16:02 Bronchial Washings Other Acid Fast Stain - Final NO ACID FAST BACILLI SEEN Resulted 11/04/17 16:02 Bronchial Washings Other Mycobacterial Culture Pending Resulted 11/04/17 16:02 Bronchial Washings Bronchial Gram Stain - Final Complete 11/04/17 16:02 Bronchial Washings Bronchial Bronchial Culture - Final NO GROWTH IN 48 HOURS. Complete Imaging Last Impressions CT Angiography 10/31/17 1615 Signed Impressions: Service Date/Time: Tuesday, October 31, 2017 18:07 - CONCLUSION: 1. Negative for pulmonary embolism. 2. Patchy right basilar airspace consolidation most characteristic of pneumonia or aspiration. Small right effusion. 3. Postoperative left upper lobectomy with extensive pleural and parenchymal scarring in both upper lungs, worse on the left. Jesus Nolasco MD Chest X-Ray 10/31/17 1444 Signed Impressions: Service Date/Time: Tuesday, October 31, 2017 15:14 - CONCLUSION: 1. Stable postoperative features in the left lung apex with chronic apparent pleural-parenchymal scarring. 2. Stable mild pleural thickening versus trace pleural effusion near the left lung base. 3. New patchy right lower lung zone airspace disease and associated trace pleural effusion versus pleural thickening. Findings are concerning for developing pneumonia versus aspiration given above history. Johnny Rivero MD Physical Exam CONSTITUTIONAL/GENERAL: This is a thin emaciated elderly patient, in no apparent distress. TUBES/LINES/DRAINS: SKIN: No jaundice, rashes, or lesions. Skin temperature appropriate. Not diaphoretic. CARDIOVASCULAR: Regular rate and rhythm without murmurs, gallops, or rubs. No JVD. Peripheral pulses symmetric. RESPIRATORY/CHEST: Symmetric, unlabored respirations. Clear to auscultation. Breath sounds equal bilaterally. BS diminished Few scattere R base rhonchi. GASTROINTESTINAL: Abdomen soft, non-tender, nondistended. No hepato-splenomegaly , or palpable masses. No guarding. Bowel sounds present. GENITOURINARY: Without palpable bladder distension. MUSCULOSKELETAL: Extremities without clubbing, cyanosis, or edema. No joint tenderness or effusion noted. No calf tenderness. No mottling or clubbing. LYMPHATICS: No palpable cervical or supraclavicular adenopathy. NEUROLOGICAL: Awake and alert. Motor and sensory grossly within normal limits. Follows commands.Pleasant y confused Moves all extremities. PSYCHIATRIC: No obvious anxiety/depression. no apparent hallucinations or other psychotic thought process.Very pleasant Assessment & Plan Remarks PNA - improving clinically and radiologically nl vincent COPD completed azithro Augmentin 875 bid x 3 more days to complete 1 week of therapy Monik Fatima MD Nov 06, 2017 13:41
[2017-11-06] MEDS ORDERED: AUGM875T3 PO (13:49)
[2017-11-06] MEDS ORDERED: PRED5TAB PO (13:52)
--- NOTE | 2017-11-06 13:54 | HHI.DS ---
Discharge Summary Admission Date Oct 31, 2017 at 19:23 Discharge Date: Nov 06, 2017 Admitting Diagnosis pneumonia, COPD exacerbation (1) COPD (chronic obstructive pulmonary disease) ICD Code: J44.9 - Chronic obstructive pulmonary disease, unspecified Diagnosis: Principal (2) PNA (pneumonia) ICD Code: J18.9 - Pneumonia, unspecified organism Diagnosis: Principal (3) Failure of outpatient treatment ICD Code: Z78.9 - Other specified health status Diagnosis: Secondary Procedures 11/04- bronchoscopy Brief History - From Admission This is a 77-year-old female with a PMH of HTN, CAD, COPD and Osteoporosis who was referred to the ER by her Day Care Supervisor, Dr. Puckett for eval of COPD and PNA. Pt had pelvic fracture and was sent to Rehab, daughter reports pt had been doing well until approx 1wk ago when she developed SOB and cough. Had outpatient CXR showing PNA and was started on Levaquin PO approx 5 days ago. Today, w/ persistent SOB and cough. SOB is moderate, worse w/ activity, associated w/ non-productive cough. No alleviating factors. Was seen in the office by Dr. Puckett and referred to the ER for admission. Daughter also reports decreased PO intake and generalized weakness. On arrival, BP 138/58, HR 92, O2 sat 95% on RA, Temp 99.4. WBC 15.5, elevated neutrophils of 80%. Chemistry essentially unremarkable except for K+ 3.2. LFTs mildly elevated in comparison to previous. Lactic Acid normal. Trop negative. CXR was stable postop features of left lung apex, mild pleural thickening versus trace pleural effusion left lung base, new patchy right lower lung airspace disease with associated pleural effusion concerning for developing pneumonia versus aspiration. CTA with no PE, patchy right base consolidation. S/p Rocephin/ Zithro in ER. CBC/BMP: 11/03/17 0635 11/05/17 0758 Significant Findings Laboratory Tests Test 11/03/17 17:04 11/05/17 07:58 11/06/17 12:10 Creatinine 0.37 MG/DL (0.50-1.00) Vancomycin Level Trough 18.7 MCG/ML (5.0-10.0) 15.0 MCG/ML (5.0-10.0) Imaging Last Impressions CT Angiography 10/31/17 1615 Signed Impressions: Service Date/Time: Tuesday, October 31, 2017 18:07 - CONCLUSION: 1. Negative for pulmonary embolism. 2. Patchy right basilar airspace consolidation most characteristic of pneumonia or aspiration. Small right effusion. 3. Postoperative left upper lobectomy with extensive pleural and parenchymal scarring in both upper lungs, worse on the left. Jesus Nolasco MD Chest X-Ray 10/31/17 1444 Signed Impressions: Service Date/Time: Tuesday, October 31, 2017 15:14 - CONCLUSION: 1. Stable postoperative features in the left lung apex with chronic apparent pleural-parenchymal scarring. 2. Stable mild pleural thickening versus trace pleural effusion near the left lung base. 3. New patchy right lower lung zone airspace disease and associated trace pleural effusion versus pleural thickening. Findings are concerning for developing pneumonia versus aspiration given above history. Johnny Rivero MD PE at Discharge awake and alert, oriented x 3 , interactive anicteric no rales lungs clear no wheezes regular rhythm abdomen soft no edema neuro moves all extremities spontaenously Pt update on day of discharge afebrile doing very well, motivated with therapy, no shrotness of breath, no wheezes Hospital Course 77 Y/O female with: COPD: Chronic Respiratory Failure w/ Acute Exacerbation. - improved - on exam- no wheezing S/P bronchoscopy- - negative for malignant cells -Transition to oral prednisone,- 20 mg po daily starting today 11/06- gradual taper - DuoNeg q4h and q2h prn, Symbicort, Mucinex. Supplemental oxygen - Dr.. puckett ff - walk test - if qualify for home PNA: Failed Outpatient treatment. CXR w/ new patchy right lower lung airspace disease with trace pleural effusion S/P bronchoscopy- cytology pending. cultures negative - concerning for pneumonia versus aspiration. CTA negative for PE, patchy right base consolidation. - ID following.- change to po augmentin 975 mg po bid - give first dose today prior to DC to SNF Diet- supplemental Ensure enlive bid DVT Prophylaxis: heparin DC SNF today- [facility] Deconditioning- will need - PT daily Pt Condition on Discharge: Stable Discharge Disposition: Discharge to SNF Discharge Instructions DIET: Follow Instructions for: As Tolerated, No Restrictions, Heart Healthy Diet Speech Therapy-Diet Recommends: Regular Activities you can perform: Weight Bearing as Rosy Follow up Referrals: Pulmonology - 1 Week with Mckenzie Puckett MD New Medications: Amoxicillin-Clavulanate (Augmentin) 875-125 Mg Tab 1 TAB PO BID for Infection for 3 Days, #6 TAB 0 Refills Prednisone (Prednisone) 5 Mg Tab 5 MG PO DAILY for COPD, #23 TAB 0 Refills 4 tabs daily for 2 days then 3 tabs daily for 3 days then 2 tabs daily for 2 days then 1 tab daily for 2 dasy then DC Continued Medications: Albuterol 18 GM Inh (Ventolin Hfa 18 GM Inh) 90 Mcg/Act Aer 1 PUFF INH Q4H PRN for SHORTNESS OF BREATH, #1 INHALER 0 Refills Alendronate (Fosamax) 70 Mg Tab 70 MG PO Q7D for Osteoporosis Treatment, #4 TAB 0 Refills Biotin (Biotin) 1,000 Mcg Tab 1000 MCG PO DAILY, #1 BOTTLE Cholecalciferol (D3) 1,000 Unit Cap 1000 UNITS PO DAILY for Nutritional Supplement Cyanocobalamin (Vitamin B-12) 500 Mcg Tab 500 MCG PO DAILY for Nutritional Supplement, #1 BOTTLE 0 Refills Cyclosporine Opth (Restasis Opth) 0.05% Emul 1 DROP EACH EYE BID for Dry Eye, #1 BOX 0 Refills Ipratropium-Albuterol Neb (Duoneb) 0.5-2.5 Mg/3 Ml Neb 3 ML NEB QID for Breathing Treatment, #30 NEBULE 0 Refills Levothyroxine (Levothyroxine) 50 Mcg Tab 50 MCG PO DAILY for Thyroid, #30 TAB 0 Refills Omeprazole (Omeprazole) 20 Mg Tab 20 MG PO DAILY, #30 TAB 0 Refills Discontinued Medications: Levofloxacin (Levofloxacin) 750 Mg Tablet 750 MG PO DAILY for Infection, TAB 0 Refills Tona Hoover MD Nov 06, 2017 13:54
[2017-11-06] MEDS ORDERED: VANCOMYCIN INJ 750 MG in SODIUM CHLOR 0.9% 250 ML INJ 250 ML IV ONE (16:00)
[2017-11-06] MEDS ORDERED: AMOX875T2 PO (16:03)
--- NOTE | 2017-11-06 17:01 | HHI.PR ---
Subjective Remarks ALERT LESS SOB Objective Vital Signs Date Time Temp Pulse Resp B/P (MAP) Pulse Ox O2 Delivery O2 Flow Rate FiO2 11/06/17 16:51 Room Air 11/06/17 15:49 95 21 11/06/17 12:02 Room Air 11/06/17 11:34 98.9 78 18 139/71 (93) 98 11/06/17 10:40 Nasal Cannula 2.00 11/06/17 08:00 98.0 81 18 165/79 (107) 97 11/06/17 07:43 96 21 11/06/17 06:10 98.7 86 17 134/67 (89) 94 11/06/17 00:05 98.3 83 16 130/61 (84) 95 11/05/17 21:17 98.1 85 16 107/54 (71) 94 11/05/17 19:49 94 Nasal Cannula 2.00 I/O 11/05/17 11/05/17 11/05/17 11/06/17 11/06/17 11/06/17 07:00 15:00 23:00 07:00 15:00 23:00 Intake Total 3767 ml 1937.5 ml 580 ml Balance 3767 ml 1937.5 ml 580 ml Intake Oral 360 ml 1680 ml 480 ml IV Total 3407 ml 257.5 ml 100 ml # Voids 4 8 4 # Bowel Movements 0 1 0 Result Diagram: 11/03/17 0635 11/05/17 0758 Objective Remarks GENERAL: SKIN: Warm and dry. HEAD: Atraumatic. Normocephalic. EYES: Pupils equal and round. No scleral icterus. No injection or drainage. ENT: No nasal bleeding or discharge. Mucous membranes pink and moist. NECK: Trachea midline. No JVD. CARDIOVASCULAR: Regular rate and rhythm. RESPIRATORY: No accessory muscle use. Clear to auscultation. Breath sounds equal bilaterally. GASTROINTESTINAL: Abdomen soft, non-tender, nondistended. Hepatic and splenic margins not palpable. MUSCULOSKELETAL: Extremities without clubbing, cyanosis, or edema. No obvious deformities. NEUROLOGICAL: Awake and alert. No obvious cranial nerve deficits. Motor grossly within normal limits. Five out of 5 muscle strength in the arms and legs. Normal speech. PSYCHIATRIC: Appropriate mood and affect; insight and judgment normal. Assessment and Plan Assessment and Plan ASS COPD BRONCHIECTASIS PULMONARY CACHEXIA PLAN O2 NEEDED ANTIBX BRONCHODILATOR THERAPY INCREASE ACTIVITY Mckenzie Rincon MD Nov 06, 2017 17:01
--- NOTE | 2017-11-17 17:34 | PQ ---
Physician Query Response Document PATIENT: CHRISTIANA MON : 1940 ADMIT DATE: 10/31/2017 7:23 PM DISCH DATE: 11/06/2017 4:59 PM RESPONDING PROVIDER #: Rylie QUERY TEXT: Respiratory Failure Acuity and Type Respiratory Failure is documented in the Medical Record. Please specify the type and acuity (includes suspected or probable) Such as: -- Acute respiratory failure - With hypoxia - With hypercapnia -- Chronic respiratory failure - With hypoxia - With hypercapnia -- Acute on chronic respiratory failure - With hypoxia - With hypercapnia -- Other, please specify If you have any additional questions/comments and/or concerns, please do not hesitate to reach out to the [facility]/Coding Hotline, Ext. [phone]. The patient's Clinical Indicators include: Both H Discharge Summary - Hospital Course with diagnosis of: 77 Y/O female with COPD: Chronic Respiratory Failure w/ Acute Exacerbation (unclear if "acute exacerbation" refers to COPD, respiratory failure or both). Query created by: Selene Parks on 11/12/2017 11:26 AM RESPONSE TEXT: Acute respiratory failure in background of COPD exacerbation Electronically signed by: Tona Hoover MD 11/17/2017 5:30 PM
== END 2017-11-06 16:59 | DRG 193 ==
LOC: NEPE 13:52 → NEDA 19:23 → N06B 20:41
PROVIDERS: ADMIT Internal Medicine; ATTEND Internal Medicine
PROC: 0B978ZZ Drainage of Left Main Bronchus, Via Natural or Artificial Opening Endoscopic (ICD-10-PCS; principal; 2017-11-04)
PROC: 0B938ZZ Drainage of Right Main Bronchus, Via Natural or Artificial Opening Endoscopic (ICD-10-PCS; 2017-11-04)
PROC: 0BDJ8ZX Extraction of Left Lower Lung Lobe, Via Natural or Artificial Opening Endoscopic, Diagnostic (ICD-10-PCS; 2017-11-04)
DX: J18.9 Pneumonia, unspecified organism (principal); J96.20 Acute and chronic respiratory failure, unspecified whether with hypoxia or hypercapnia; R64 Cachexia; J44.1 Chronic obstructive pulmonary disease with (acute) exacerbation; T17.890A Other foreign object in other parts of respiratory tract causing asphyxiation, initial encounter; J47.0 Bronchiectasis with acute lower respiratory infection; J44.0 Chronic obstructive pulmonary disease with (acute) lower respiratory infection; Z68.1 Body mass index [BMI] 19.9 or less, adult; M81.0 Age-related osteoporosis without current pathological fracture; I25.10 Atherosclerotic heart disease of native coronary artery without angina pectoris; Z95.5 Presence of coronary angioplasty implant and graft; I10 Essential (primary) hypertension; Y95 Nosocomial condition; Z90.2 Acquired absence of lung [part of]; Z87.891 Personal history of nicotine dependence
CPT/HCPCS: 31625; 71045; 71275; 76937; 80048; 80053; 80202; 81001; 82550; 82565; 83605; 83880; 84484; 85007; 85027; 85610; 85730; 87015; 87040; 87070; 87086; 87102; 87116; 87205; 87206; 87804; 88112; 88305; 93005; 94618; 94640; 94664; 96365; 96367; 96375; J0456; J0692; J0696; J1100; J1644; J1956; J2370; J2405; J2920; J2930; J3370; J3480; J7050; J7512; J7613; Q9967

== ENCOUNTER 2018-01-18 01:35 | Emergency (ER) | payer MEDICARE ==
[~2018-01-18 01:35] MED LIST changes: -ASPI81TA16 PO; +AUGM875T3 PO; -AZIT250T3 PO; +FOSA70TA PO; -LIFI1DRO EACH EYE; +NORC5TAB PO; +PRED5TAB PO; -ROSU5 PO; -SIME1CHW10 PO; -[UNRECOGNIZED DRUG - CODE] PO
[2018-01-18 01:41] VITALS: BP 181/111; PULSE 79; RESP 16; TEMP 97.5; O2SAT 98
[2018-01-18] MEDS ORDERED: SERT-132 PO (01:56)
[2018-01-18] MEDS ORDERED: BIOT10TA PO (01:56)
[2018-01-18] MEDS ORDERED: BROV15NE NEB (01:56)
[2018-01-18] MEDS ORDERED: NAME5TAB2 PO (01:56)
[2018-01-18] MEDS ORDERED: NAME10TA PO (01:56)
[2018-01-18] MEDS ORDERED: BUDE0.25 NEB (01:56)
[2018-01-18] MEDS ORDERED: SODIUM CHLORID 0.9% 500 ML INJ 500 ML IV ONE (02:00)
[2018-01-18] MEDS ORDERED: ONDANSETRON HCL 4 MG/2 ML VIAL IV PUSH ONE (02:00)
[2018-01-18 02:01] VITALS: RESP 16; O2SAT 98
--- NOTE | 2018-01-18 02:03 | PD ---
HPI Chief Complaint: Fall Time Seen by Provider: 01:38 Travel History International Travel<30 days: No Contact w/Intl Traveler<30days: No Traveled to known affect area: No History of Present Illness HPI 77-year-old female complains of headache, left knee pain, nausea. Patient states that she started having nausea this evening. Patient states that she will try to go the bathroom and fell. Patient states that she hit the left forehead. Patient also injured her left knee. Patient is not sure whether she had loss of consciousness. Patient states that the headaches aching headache localized to left forehead area. Patient denies any visual change. Patient denies any neck pain. Patient denies any chest pain or shortness of breath. Patient denies abdominal pain. Patient states that she has burning pain localized the anterior aspect the left knee. Patient denies any pain radiation. Patient denies any focal weakness or numbness of the extremity. Patient is not sure of TD booster status. PFSH Past Medical History Arthritis: Yes Cancer: No Cardiac Catheterization: Yes (stent placed) Cardiovascular Problems: Yes (CARDIAC STENTS) Congestive Heart Failure: No COPD: Yes Diabetes: No Diminished Hearing: No Endocrine: Yes Gastrointestinal Disorders: Yes (GERD) GERD: No Genitourinary: Yes (INCONTINENCE) Hepatitis: No Hiatal Hernia: No Immune Disorder: No Medical other: Yes (Hx MAC(microbiotic averium complex)) Musculoskeletal: Yes Neurologic: No Psychiatric: No Reproductive: No Respiratory: Yes (FLUID LEFT LUNG,COPD, MAC) Immunizations Current: Yes Thyroid Disease: Yes Ulcer: No : 2 Para: 2 Past Surgical History Abdominal Surgery: Yes (APPY WITH PARATENITIS) AICD: No Cardiac Surgery: Yes (CARDIAC STENT) Ear Surgery: No Endocrine Surgery: No Eye Surgery: Yes (CATARACTS REMOVED) Genitourinary Surgery: No Gynecologic Surgery: No Joint Replacement: No Oral Surgery: Yes (TONSILLECTOMY) Pacemaker: No Thoracic Surgery: Yes (LEFT UPPER LOBECTOMY) Other Surgery: Yes Social History Alcohol Use: No Tobacco Use: No (quit 50 years ago) Substance Use: No Allergies-Medications (Allergen,Severity, Reaction): Coded Allergies: sulfamethoxazole (Verified Adverse Reaction, Intermediate, VOMITING, ) trimethoprim (Verified Adverse Reaction, Intermediate, VOMITING, 01/18/18) Reported Meds & Prescriptions Reported Meds & Active Scripts Active Prednisone 5 Mg Tab 5 Mg PO DAILY 4 tabs daily for 2 days then 3 tabs daily for 3 days then 2 tabs daily for 2 days then 1 tab daily for 2 dasy then DC Duoneb (Ipratropium-Albuterol Neb) 0.5-2.5 Mg/3 Ml Neb 3 Ml NEB QID Reported Biotin 10 Mg Tab 10 Mg PO DAILY Budesonide Neb 0.25 Mg/2 Ml Neb 0.25 Mg NEB BID Brovana Neb (Arformoterol Neb) 15 Mcg/2 Ml Vial 1 Nebule NEB BID Maintenance treatment of bronchoconstriction in COPD. Sertraline (Sertraline HCl) 50 Mg Tab 50 Mg PO DAILY Namenda (Memantine) 10 Mg Tab 10 Mg PO DAILY Namenda (Memantine) 5 Mg Tab 5 Mg PO DAILY [place] (Hydrocodone-Acetaminophen) 5 Mg-325 Mg Tab 1 Tab PO Q4H PRN Fosamax (Alendronate Sodium) 70 Mg Tab 70 Mg PO Q7D Restasis Opth (Cyclosporine Opth) 0.05% Emul 1 Drop EACH EYE BID Ventolin Hfa 18 GM Inh (Albuterol Sulfate) 90 Mcg/Act Aer 1 Puff INH Q4H PRN D3 (Cholecalciferol) 1,000 Unit Cap 1,000 Units PO DAILY Vitamin B-12 (Cyanocobalamin) 500 Mcg Tab 500 Mcg PO DAILY Omeprazole 20 Mg Tab 20 Mg PO DAILY Levothyroxine (Levothyroxine Sodium) 50 Mcg Tab 50 Mcg PO DAILY Review of Systems General / Constitutional: No: Fever Eyes: No: Visual changes HENT: Positive: Headaches Cardiovascular: No: Chest Pain or Discomfort Respiratory: No: Shortness of Breath Gastrointestinal: No: Abdominal Pain Genitourinary: No: Dysuria Musculoskeletal: No: Pain Skin: No Rash Neurologic: No: Weakness Psychiatric: No: Depression Endocrine: No: Polydipsia Hematologic/Lymphatic: No: Easy Bruising Physical Exam Narrative GENERAL: Well-nourished, well-developed patient. SKIN: Focused skin assessment warm/dry. HEAD: Normocephalic. Patient had ecchymosis soft tissue swelling tenderness left forehead area. EYES: No scleral icterus. No injection or drainage. NECK: Supple, trachea midline. No JVD or lymphadenopathy. No tenderness on palpation of the neck. CARDIOVASCULAR: Regular rate and rhythm without murmurs, gallops, or rubs. RESPIRATORY: Breath sounds equal bilaterally. No accessory muscle use. GASTROINTESTINAL: Abdomen soft, non-tender, nondistended. MUSCULOSKELETAL: Patient has small superficial laceration prepatellar area of the left knee. Full range of motion of the left knee. Knee joint stable. Mild tenderness in palpation around patellar area. BACK: Nontender without obvious deformity. No CVA tenderness. Neurologic exam: Patient is awake and alert oriented to place and person. Patient moves all extremity well. No obvious focal neurological deficit. Data Data Last Documented VS Vital Signs Date Time Temp Pulse Resp B/P (MAP) Pulse Ox O2 Delivery O2 Flow Rate FiO2 01/18/18 02:01 16 98 Room Air 01/18/18 01:41 97.5 79 Orders Orders Complete Blood Count With Diff (01/18/18 01:57) Comprehensive Metabolic Panel (01/18/18 01:57) Prothrombin Time / Inr (Pt) (01/18/18 01:57) Act Partial Throm Time (Ptt) (01/18/18 01:57) Lipase (01/18/18 01:57) Urinalysis - C+S If Indicated (01/18/18 01:57) Chest, Single Ap (01/18/18 01:57) Ct Brain W/O Iv Contrast(Rout) (01/18/18 01:57) Iv Access Insert/Monitor (01/18/18 01:57) Ecg Monitoring (01/18/18 01:57) Oximetry (01/18/18 01:57) Knee, Ltd (1 Or 2vws) (01/18/18 01:57) Sodium Chlorid 0.9% 500 Ml Inj (Ns 500 M (01/18/18 02:00) Ondansetron Inj (Zofran Inj) (01/18/18 02:00) Urine Culture (01/18/18 02:14) Labs Laboratory Tests Test 01/18/18 02:01 01/18/18 02:14 01/18/18 02:57 White Blood Count 15.5 TH/MM3 Red Blood Count 4.38 MIL/MM3 Hemoglobin 13.7 GM/DL Hematocrit 39.5 % Mean Corpuscular Volume 90.0 FL Mean Corpuscular Hemoglobin 31.3 PG Mean Corpuscular Hemoglobin Concent 34.7 % Red Cell Distribution Width 13.6 % Platelet Count 357 TH/MM3 Mean Platelet Volume 7.2 FL Neutrophils (%) (Auto) 78.1 % Lymphocytes (%) (Auto) 13.5 % Monocytes (%) (Auto) 6.6 % Eosinophils (%) (Auto) 1.1 % Basophils (%) (Auto) 0.7 % Neutrophils # (Auto) 12.1 TH/MM3 Lymphocytes # (Auto) 2.1 TH/MM3 Monocytes # (Auto) 1.0 TH/MM3 Eosinophils # (Auto) 0.2 TH/MM3 Basophils # (Auto) 0.1 TH/MM3 CBC Comment DIFF FINAL Differential Comment Blood Urea Nitrogen 10 MG/DL Creatinine 0.48 MG/DL Random Glucose 124 MG/DL Total Protein 7.0 GM/DL Albumin 3.3 GM/DL Calcium Level 8.4 MG/DL Alkaline Phosphatase 60 U/L Aspartate Amino Transf (AST/SGOT) 15 U/L Alanine Aminotransferase (ALT/SGPT) 25 U/L Total Bilirubin 0.3 MG/DL Sodium Level 138 MEQ/L Potassium Level 3.2 MEQ/L Chloride Level 101 MEQ/L Carbon Dioxide Level 28.3 MEQ/L Anion Gap 9 MEQ/L Estimat Glomerular Filtration Rate 125 ML/MIN Lipase 162 U/L Urine Color LIGHT-YELLOW Urine Turbidity HAZY Urine pH 7.5 Urine Specific [place] 1.011 Urine Protein TRACE mg/dL Urine Glucose (UA) NEG mg/dL Urine Ketones NEG mg/dL Urine Occult Blood TRACE Urine Nitrite POS Urine Bilirubin NEG Urine Urobilinogen LESS THAN 2.0 MG/DL Urine Leukocyte Esterase LARGE Urine RBC 8 /hpf Urine WBC 98 /hpf Urine Squamous Epithelial Cells 5 /hpf Urine Renal Epithelial Cells <1 /hpf Urine Bacteria MOD /hpf Urine Mucus FEW /lpf Microscopic Urinalysis Comment CULTURE INDICATED Prothrombin Time 10.2 SEC Prothromb Time International Ratio 1.0 RATIO Activated Partial Thromboplast Time 21.9 SEC [facility] Medical Decision Making Medical Screen Exam Complete: Yes Emergency Medical Condition: Yes Interpretation(s) 4:14 AM. Chest x-ray shows no acute consolidation. Chronic changes. CT scan of brain negative acute pathology. X-ray left knee showed no acute bony injury. CBC WBC 15.5. 78 neutrophil. Potassium 3.2. UA positive WBC and bacteria. Differential Diagnosis Differential diagnosis including contusion, skull fracture, intracranial hemorrhage, gastroenteritis. Narrative Course 77-year-old female complaint of nausea, headache and left knee pain after a fall. Cipro 500 mg p.o. given. Diagnosis Primary Impression: Closed head injury Qualified Codes: S09.90XA - Unspecified injury of head, initial encounter Additional Impressions: Contusion of left knee Qualified Codes: S80.02XA - Contusion of left knee, initial encounter UTI (urinary tract infection) Qualified Codes: N30.00 - Acute cystitis without hematuria Patient Instructions: General Instructions Additional Instructions: Head trauma instructions given. Cipro as directed. Ice pack as needed. Follow -up with personal physician. Return as needed. Med/Other Pt SpecificInfo: Prescription(s) given Scripts Ciprofloxacin (Cipro) 500 Mg Tab 500 MG PO BID for Infection, #14 TAB 0 Refills Prov: Zaid Mendez MD 01/18/18 Disposition: 01 DISCHARGE HOME Condition: Stable Zaid Mendez MD January 18, 2018 02:03
[2018-01-18 02:26] LABS: AUTOMATED NEUTROPHIL # 12.1 TH/MM3 (1.8-7.7); BASOPHIL # 0.1 TH/MM3 (0-0.2); BASOPHIL % 0.7 % (0.0-2.0); EOSINOPHIL # 0.2 TH/MM3 (0-0.4); EOSINOPHIL % 1.1 % (0.0-4.0); HEMATOCRIT 39.5 % (35.0-46.0); HEMOGLOBIN 13.7 GM/DL (11.6-15.3); LYMPH % 13.5 % (9.0-44.0); LYMPHOCYTE # 2.1 TH/MM3 (1.0-4.8); MEAN CORPUSCULAR HEMOGLOBIN 31.3 PG (27.0-34.0); MEAN CORPUSCULAR HGB CONC 34.7 % (32.0-36.0); MEAN PLATELET VOLUME 7.2 FL (7.0-11.0); MONO % 6.6 % (0.0-8.0); NEUT % 78.1 % (16.0-70.0); PLATELET COUNT 357 TH/MM3 (150-450); RED BLOOD COUNT 4.38 MIL/MM3 (4.00-5.30); RED CELL DISTRIBUTION WIDTH 13.6 % (11.6-17.2); WHITE BLOOD COUNT 15.5 TH/MM3 (4.0-11.0)
[2018-01-18 02:35] LABS: BACTERIA, URINE MOD /hpf; BILIRUBIN, URINE NEG (NEG); BLOOD, URINE TRACE (NEG); GLUCOSE,URINE NEG (NEG); KETONE, URINE NEG (NEG); MUCUS URINE FEW /lpf (OCC); NITRITE,URINE POS (NEG); PH, URINE 7.5 (5.0-8.5); RENAL EPITHELIAL CELLS <1 /hpf; SQUAMOUS EPITHELIAL CELL URINE 5 /hpf (0-5); URINE COLOR LIGHT-YELLOW (YELLW/STRAW); URINE LEUKOCYTE ESTERASE LARGE (NEG)
--- NOTE | 2018-01-18 02:41 | RADRPT ---
EXAM DATE/TIME: 01/18/2018 02:19 [facility] COMPARISON: No previous studies available for comparison. INDICATIONS : Trauma; fall. Forehead contusion. RADIATION DOSE: 36.13 CTDIvol (mGy) MEDICAL HISTORY : Chronic obstructive pulmonary disease. Cardiovascular disease Hypertension.Liver disease SURGICAL HISTORY : Lobectomy. ENCOUNTER: Initial ACUITY: 1 day PAIN SCALE: 7/10 LOCATION: cranial TECHNIQUE: Multiple contiguous axial images were obtained of the head. Using automated exposure control and adj ustment of the mA and/or kV according to patient size, radiation dose was kept as low as reasonably a chievable to obtain optimal diagnostic quality images. DICOM format image data is available electro nically for review and comparison. FINDINGS: The exam is mildly degraded by patient motion. There is moderately diminished attenuation in periventricular white matter. There is symmetric mild p rominence of the ventricles and extra-axial sulcal spaces. There is no evidence of intracranial hemor rhage or mass. There is nothing to suggest acute infarction. There is mild left frontal scalp swellin g without evidence of underlying fracture. CONCLUSION: Motion degraded exam, grossly negative for acute intracranial injury Armen Oviedo MD on January 18, 2018 at 2:38 Board Certified Radiologist. This report was verified electronically.
[2018-01-18 02:42] LABS: ALBUMIN 3.3 GM/DL (3.4-5.0); ALT (GPT) 25 U/L (10-53); AST (GOT) 15 U/L (15-37); BICARBONATE 28.3 MEQ/L (21.0-32.0); BLOOD UREA NITROGEN 10 MG/DL (7-18); CALCIUM 8.4 MG/DL (8.5-10.1); CHLORIDE 101 MEQ/L (98-107); CREATININE 0.48 MG/DL (0.50-1.00); GLOMERULAR FILTRATION RATE 125 ML/MIN (>89); GLUCOSE,RANDOM 124 MG/DL (74-106); SODIUM (NA) 138 MEQ/L (136-145)
[2018-01-18 02:44] LABS: ALKALINE PHOSPHATASE 60 U/L (45-117); TOTAL BILIRUBIN ADULT 0.3 MG/DL (0.2-1.0)
--- NOTE | 2018-01-18 02:45 | RADRPT ---
EXAM DATE/TIME: 01/18/2018 02:27 [facility] COMPARISON: CHEST SINGLE AP, October 31, 2017, 15:14. INDICATIONS : Shortness of breath. MEDICAL HISTORY : Cardiovascular disease. SURGICAL HISTORY : Coronary artery stent. Appendectomy.Left lung removed, partia ENCOUNTER: Initial ACUITY: 1 day PAIN SCORE: 4/10 LOCATION: Bilateral chest FINDINGS: There is stable left apical pleuroparenchymal scarring and retraction and mild similar changes in the contralateral right axillary region and lung apex. There are no new acute findings. Cardiac contours are stable. Thoracic skeleton is grossly stable. CONCLUSION: Stable abnormal chest appearance Armen Oviedo MD on January 18, 2018 at 2:40 Board Certified Radiologist. This report was verified electronically.
--- NOTE | 2018-01-18 02:48 | RADRPT ---
EXAM DATE/TIME: 01/18/2018 02:29 [facility] COMPARISON: No previous studies available for comparison. INDICATIONS : Left knee pain post fall. MEDICAL HISTORY : Cardiovascular disease. SURGICAL HISTORY : Coronary artery stent. Appendectomy.Left lung removed, partial ENCOUNTER: Initial ACUITY: 1 day PAIN SCORE: 4/10 LOCATION: Left knee FINDINGS: Two view examination of the left knee demonstrates no evidence of fracture or dislocation. Bony mine ralization is normal. The suprapatellar soft tissues have a normal configuration. CONCLUSION: Unremarkable limited examination of the left knee. Armen Oviedo MD on January 18, 2018 at 2:45 Board Certified Radiologist. This report was verified electronically.
[2018-01-18 03:28] LABS: PROTHROMBIN TIME - PATIENT 10.2 SEC (9.8-11.6)
[2018-01-18] MEDS ORDERED: CIPR-9 PO (04:25)
[2018-01-18 04:30] VITALS: BP 162/79; PULSE 80; RESP 18; O2SAT 97
[2018-01-18] MEDS ORDERED: CIPROFLOXACIN 500 MG TAB PO ONE (04:30)
== END 2018-01-18 09:13 | disposition home or self-care (01) ==
LOC: NEPE 01:35
DX: S00.83XA Contusion of other part of head, initial encounter (principal); S80.02XA Contusion of left knee, initial encounter; N30.00 Acute cystitis without hematuria; B96.89 Other specified bacterial agents as the cause of diseases classified elsewhere; W19.XXXA Unspecified fall, initial encounter
CPT/HCPCS: 70450; 71045; 73560; 80053; 81001; 83690; 85025; 85610; 85730; 87077; 87086; 87186; 96361; 96374; 99285; J2405; J7040

== ENCOUNTER 2018-01-20 15:01 | Observation (INO) | payer MEDICARE ==
[~2018-01-20] VITALS: Ht 175.3 cm; Wt 45.0 kg
[~2018-01-20 15:01] MED LIST changes: -AUGM875T3 PO; -BIOT1000 PO; +BIOT10TA PO; +BROV15NE NEB; +BUDE0.25 NEB; +CIPR-9 PO; +NAME10TA PO; +NAME5TAB2 PO; -PRED10PA PO; +SERT-132 PO
[2018-01-20 15:37] VITALS: BP 153/86; PULSE 93; RESP 18; TEMP 98.2; O2SAT 96
[2018-01-20 15:45] VITALS: BP 153/86; PULSE 93; RESP 18; TEMP 98.2; O2SAT 96
[2018-01-20] MEDS ORDERED: CORTI10A EACH EAR (16:35)
[2018-01-20] MEDS ORDERED: MECL1TAB42 PO (16:35)
[2018-01-20] MEDS ORDERED: PRED5TAB PO (16:35)
[2018-01-20] MEDS ORDERED: REST0.05 EACH EYE (16:35)
[2018-01-20] MEDS ORDERED: ZOFR8TAB PO (16:35)
[2018-01-20] MEDS ORDERED: TYLE325T PO (16:35)
[2018-01-20] MEDS ORDERED: IPRASOL NEB ×2 (16:35)
[2018-01-20] MEDS ORDERED: OXYGEN NAS.CANULA (16:35)
[2018-01-20] MEDS ORDERED: LEVO50TA4 PO (16:35)
[2018-01-20] MEDS ORDERED: BENZ100 PO (16:35)
[2018-01-20] MEDS ORDERED: CULT10CA2 PO (16:35)
[2018-01-20] MEDS ORDERED: DULC10SU3 RECTAL (16:35)
[2018-01-20] MEDS ORDERED: ENEMENE5 RECTAL (16:35)
[2018-01-20] MEDS ORDERED: GUAI600T34 PO (16:35)
[2018-01-20] MEDS ORDERED: ROBA100S5 PO (16:35)
[2018-01-20] MEDS ORDERED: MILKSUS PO (16:35)
--- NOTE | 2018-01-20 17:21 | PD ---
HPI Chief Complaint: Fall Time Seen by Provider: 17:16 Travel History International Travel<30 days: No Contact w/Intl Traveler<30days: No Traveled to known affect area: No History of Present Illness HPI Patient is a care home patient of [facility], where Dr. Russell is the pcp...Dr russell did not place direct admit orders or observation orders.instead recc mri via ER per family. Apparently the patient continues to have dizziness and unsteadiness, primary care was concerned for possible brainstem lesion. Patient has not had any repeat falls, since discharge. also has neurologist, dr ismael schrader. patient has a chronic history of falls and dementia. dizziness best described as unsteadiness, denies sensation that room is spinning.....patient does not complain of vomiting, however daughter states that she has been, with decreased po intake which has been going on since at least october. Allergies to sulfa Past medical history significant for hypothyroidism, cataracts, tonsillectomy, dementia, cardiac stents, pneumonia, COPD, emphysema, left upper lobe removal, GERD, appendectomy , GERD PFSH Past Medical History Alzheimer's Disease: Yes Arthritis: Yes Depression: Yes Cancer: No Cardiac Catheterization: Yes (stent placed) Cardiovascular Problems: Yes (CARDIAC STENTS) Congestive Heart Failure: No COPD: Yes Dementia: Yes Diabetes: No Diminished Hearing: No Endocrine: Yes Gastrointestinal Disorders: Yes (GERD) GERD: Yes Genitourinary: Yes (INCONTINENCE) Hepatitis: No Hiatal Hernia: No Immune Disorder: No Medical other: Yes (Hx MAC(microbiotic averium complex)) Musculoskeletal: Yes Neurologic: No Psychiatric: No Reproductive: No Respiratory: Yes (PNA,COPD, MAC) Immunizations Current: Yes Thyroid Disease: Yes Ulcer: No Tetanus Vaccination: Unknown Influenza Vaccination: Yes : 2 Para: 2 Past Surgical History Abdominal Surgery: Yes (APPY WITH PARATENITIS) AICD: No Cardiac Surgery: Yes (CARDIAC STENT) Ear Surgery: No Endocrine Surgery: No Eye Surgery: Yes (CATARACTS REMOVED) Genitourinary Surgery: No Gynecologic Surgery: No Joint Replacement: No Oral Surgery: Yes (TONSILLECTOMY) Pacemaker: No Thoracic Surgery: Yes (LEFT UPPER LOBECTOMY) Other Surgery: Yes Social History Alcohol Use: No Tobacco Use: No (quit 50 years ago) Substance Use: No Allergies-Medications (Allergen,Severity, Reaction): Coded Allergies: sulfamethoxazole (Verified Adverse Reaction, Intermediate, VOMITING, ) trimethoprim (Verified Adverse Reaction, Intermediate, VOMITING, 01/20/18) Reported Meds & Prescriptions Reported Meds & Active Scripts Active Reported Dulcolax Supp (Bisacodyl) 10 Mg Supp 10 Mg RECTAL DAILY PRN Milk of Magnesia Liq (Magnesium Hydroxide) 400 Mg/5 Ml Susp 30 Ml PO ONCE PRN [Oxygen] 2 Liter LEXI.CANULA CONTINUOUS Enema Disposable (Sodium Phosphates) 19 Gram-7 Gram/118 Ml Aym 1 Applic RECTAL ON 4TH DAY PRN Restasis Opth (Cyclosporine Opth) 0.05% Emul 1 Drop EACH EYE BID Levothyroxine (Levothyroxine Sodium) 50 Mcg Tab 50 Mcg PO DAILY Tylenol (Acetaminophen) 325 Mg Tab 650 Mg PO Q6H PRN Duoneb (Ipratropium-Albuterol Neb) 0.5-2.5 Mg/3 Ml Neb 3 Ml NEB TID Duoneb (Ipratropium-Albuterol Neb) 0.5-2.5 Mg/3 Ml Neb 3 Ml NEB Q6HR PRN Tessalon Perles (Benzonatate) 100 Mg Cap 100 Mg PO TID PRN Robafen (Guaifenesin) 100 Mg/5 Ml Syp 200 Mg PO Q6HR PRN Prednisone 5 Mg Tab 7.5 Mg PO DAILY [facility] (Lactobacillus-Inulin) 15 Billion Cell Cap 1 Cap PO DAILY 14 Days Guaifenesin ER (Guaifenesin) 600 Mg Tab.er.12h 600 Mg PO Q12HR Fvvvuwyk-Mvvrfucmg-UN Otic Drops (Neomycin/Polymyxin/Hydrocortisone) 1 % Soln 2 Drop EACH EAR BID 7 Days Biotin 10 Mg Tab 10 Mg PO DAILY Brovana Neb (Arformoterol Neb) 15 Mcg/2 Ml Vial 1 Nebule NEB BID Maintenance treatment of bronchoconstriction in COPD. Sertraline (Sertraline HCl) 50 Mg Tab 25 Mg PO HS Namenda (Memantine) 10 Mg Tab 10 Mg PO HS Namenda (Memantine) 5 Mg Tab 5 Mg PO DAILY Fosamax (Alendronate Sodium) 70 Mg Tab 70 Mg PO Q7D D3 (Cholecalciferol) 1,000 Unit Cap 1,000 Units PO DAILY Omeprazole 20 Mg Tab 20 Mg PO DAILY Review of Systems General / Constitutional: No: Fever Eyes: No: Visual changes HENT: No: Headaches Cardiovascular: No: Chest Pain or Discomfort Respiratory: No: Shortness of Breath Gastrointestinal: No: Abdominal Pain Genitourinary: No: Dysuria Musculoskeletal: No: Pain Skin: No Rash Neurologic: Positive: Dizziness Psychiatric: No: Depression Endocrine: No: Polydipsia Hematologic/Lymphatic: No: Easy Bruising Physical Exam Narrative GENERAL: SKIN: Warm and dry. HEAD: Atraumatic. Normocephalic. EYES: Pupils equal and round. No scleral icterus. No injection or drainage. Left eye has a healing periorbital ecchymosis, a scalp contusion is also noted but without any crepitus on the skull ENT: No nasal bleeding or discharge. Mucous membranes pink and moist. No hemotympanum bilaterally NECK: Trachea midline. No JVD. CARDIOVASCULAR: Regular rate and rhythm. RESPIRATORY: No accessory muscle use. Clear to auscultation. Breath sounds equal bilaterally. GASTROINTESTINAL: Abdomen soft, non-tender, nondistended. Hepatic and splenic margins not palpable. MUSCULOSKELETAL: Extremities without clubbing, cyanosis, or edema. No obvious deformities. NEUROLOGICAL: Awake and alert. No obvious cranial nerve deficits. Motor grossly within normal limits. Five out of 5 muscle strength in the arms and legs. Normal speech. PSYCHIATRIC: Appropriate mood and affect; insight and judgment normal. Data Data Last Documented VS Vital Signs Date Time Temp Pulse Resp B/P (MAP) Pulse Ox O2 Delivery O2 Flow Rate FiO2 01/20/18 18:46 93 18 134/88 (103) 95 Room Air 01/20/18 15:45 98.2 Orders Orders Mri Brain W/O Contrast (01/20/18 16:06) Complete Blood Count With Diff (01/20/18 19:39) Comprehensive Metabolic Panel (01/20/18 19:39) Lipase (01/20/18 19:39) Urinalysis - C+S If Indicated (01/20/18 19:39) Iv Access Insert/Monitor (01/20/18 19:39) Ecg Monitoring (01/20/18 19:39) Oximetry (01/20/18 19:39) Sodium Chloride 0.9% Flush (Ns Flush) (01/20/18 19:45) Chest, Single Ap (01/20/18 ) Cath For Specimen (01/20/18 22:22) Consult Neurology (01/20/18 ) Admit Order (Ed Use Only) (01/20/18 ) Labs Laboratory Tests Test 01/20/18 20:59 White Blood Count 13.4 TH/MM3 Red Blood Count 4.62 MIL/MM3 Hemoglobin 13.9 GM/DL Hematocrit 42.0 % Mean Corpuscular Volume 90.8 FL Mean Corpuscular Hemoglobin 30.0 PG Mean Corpuscular Hemoglobin Concent 33.0 % Red Cell Distribution Width 13.7 % Platelet Count 424 TH/MM3 Mean Platelet Volume 7.1 FL Neutrophils (%) (Auto) 78.7 % Lymphocytes (%) (Auto) 11.8 % Monocytes (%) (Auto) 7.8 % Eosinophils (%) (Auto) 1.1 % Basophils (%) (Auto) 0.6 % Neutrophils # (Auto) 10.5 TH/MM3 Lymphocytes # (Auto) 1.6 TH/MM3 Monocytes # (Auto) 1.0 TH/MM3 Eosinophils # (Auto) 0.1 TH/MM3 Basophils # (Auto) 0.1 TH/MM3 CBC Comment DIFF FINAL Differential Comment Blood Urea Nitrogen 13 MG/DL Creatinine 0.48 MG/DL Random Glucose 113 MG/DL Total Protein 6.9 GM/DL Albumin 3.3 GM/DL Calcium Level 9.0 MG/DL Alkaline Phosphatase 64 U/L Aspartate Amino Transf (AST/SGOT) 18 U/L Alanine Aminotransferase (ALT/SGPT) 21 U/L Total Bilirubin 0.3 MG/DL Sodium Level 134 MEQ/L Potassium Level 3.7 MEQ/L Chloride Level 99 MEQ/L Carbon Dioxide Level 25.7 MEQ/L Anion Gap 9 MEQ/L Estimat Glomerular Filtration Rate 125 ML/MIN Lipase 122 U/L [facility] Medical Decision Making Medical Screen Exam Complete: Yes Emergency Medical Condition: Yes Medical Record Reviewed: Yes Differential Diagnosis Basal ganglia tumor versus brain stem tumor versus brain stem hemorrhage versus brain stem infarcts Narrative Course MRI is negative for any brainstem tumors, infarcts or hemorrhage...some chronic white matter changes patient was seen [address] head, knee xray and blood work, which is why repeat blood work was not performed. daughter is concerned that patient continues to have some episodes of nausea and vomiting that continues. however , these are not new, and has been ongoing for a while and electrolyte abnormalities should have been present on previous workup. diagnosed with uti/ left knee contusion and closed head injury 2 days ago. d/c on po abx based upon chart review, patient has been deconditioning and falls caused nonsurgical pelvic fracture which placed her in rehab prior to oct 2017, between then and now [place] [facility]c to snf where she currently resides. while mri performed, patient was in emergency dept for apporx 4hrs under observation, at no point did patient express feelings of nausea nor vomited. Once results and dispo shared with patinet and daughter. daughter became upset that she was not being admitted and placed call to pcp leaving message. Of note , patient already has placement at [facility], so patient has bedside clinical support and was not being returned to nonmedical private home. Diagnosis Primary Impression: Dizziness Referrals: Kasie Russell DO For any further evaluation or care Patient Instructions: Dizziness (GEN), General Instructions Additional Instructions: Please get in touch with your primary care for any further tests, MRI of brain was not significant for any strokes, hemorrhagic or ischemic in nature. And also did not show any brain tumors. Scripts Lactobacillus Acidophilus (Lactobacillus Acidophilus) 1 Billion Cell Tab 1 TAB PO TIDAC for Nutritional Supplement for 10 Days, #30 TAB 0 Refills Prov: Donnie Watson 01/22/18 Amoxicillin-Clavulanate (Augmentin) 875-125 Mg Tab 1 TAB PO BID for Infection for 7 Days, #14 TAB 0 Refills Prov: Donnie Watson 01/22/18 Meclizine HCl (Meclizine 25) 25 Mg Tab 25 MG PO Q6H for Infection, #20 TAB Prov: Danis Davis MD 01/21/18 Carbamide Peroxide Otic Drops (Debrox Otic Drops) 6.5% Soln 5 DROP LEFT EAR Q12HR for Immunosuppression, #1 ML up to 4 days. Prov: Danis Davis MD 01/21/18 Disposition: 03 DISCHARGE TO SNF Condition: Stable David Loredo MD January 20, 2018 17:21
--- NOTE | 2018-01-20 17:52 | RADRPT ---
EXAM DATE/TIME: 01/20/2018 17:14 [facility] COMPARISON: No previous studies available for comparison. INDICATIONS : CVA. Dizziness. Vertigo. MEDICAL HISTORY : Cardiovascular disease SURGICAL HISTORY : Coronary artery stent. Appendectomy. Lobectomy. ENCOUNTER: Initial ACUITY: 2 day PAIN SCORE: 0/10 LOCATION: head. TECHNIQUE: Multiplanar, multisequence MRI of the brain was performed without contrast. FINDINGS: There is severe chronic ischemic changes in the periventricular white matter. This cortical volume lo ss and mild ventricular prominence. Is no mass effect or midline shift. No evidence for recent infarction. No abnormal extra-axial fluid collections. Sella appears normal. CONCLUSION: 1. No acute findings or recent infarct. 2. Severe chronic white matter ischemic changes in periventricular region. Also less severe chronic w anastasiya matter ischemic changes in the brainstem predominantly in the liberty. Jesus Nolasco MD on January 20, 2018 at 17:47 Board Certified Radiologist. This report was verified electronically.
[2018-01-20 18:46] VITALS: BP 134/88; PULSE 93; RESP 18; O2SAT 95
[2018-01-20] MEDS ORDERED: SODIUM CHLORIDE 0.9% FLUSH 10 ML FLUSH IV FLUSH PRN ×2 (19:45→23:15)
[2018-01-20 21:38] LABS: AUTOMATED NEUTROPHIL # 10.5 TH/MM3 (1.8-7.7); BASOPHIL # 0.1 TH/MM3 (0-0.2); BASOPHIL % 0.6 % (0.0-2.0); EOSINOPHIL # 0.1 TH/MM3 (0-0.4); EOSINOPHIL % 1.1 % (0.0-4.0); HEMOGLOBIN 13.9 GM/DL (11.6-15.3); LYMPH % 11.8 % (9.0-44.0); LYMPHOCYTE # 1.6 TH/MM3 (1.0-4.8); MEAN CELL VOLUME 90.8 FL (80.0-100.0); MEAN PLATELET VOLUME 7.1 FL (7.0-11.0); MONO % 7.8 % (0.0-8.0); NEUT % 78.7 % (16.0-70.0); PLATELET COUNT 424 TH/MM3 (150-450); RED BLOOD COUNT 4.62 MIL/MM3 (4.00-5.30); RED CELL DISTRIBUTION WIDTH 13.7 % (11.6-17.2); WHITE BLOOD COUNT 13.4 TH/MM3 (4.0-11.0)
[2018-01-20 21:44] LABS: ALT (GPT) 21 U/L (10-53)
[2018-01-20 21:46] LABS: ALKALINE PHOSPHATASE 64 U/L (45-117); TOTAL BILIRUBIN ADULT 0.3 MG/DL (0.2-1.0); TOTAL PROTEIN 6.9 GM/DL (6.4-8.2)
[2018-01-20 21:53] LABS: ALBUMIN 3.3 GM/DL (3.4-5.0); AST (GOT) 18 U/L (15-37); BICARBONATE 25.7 MEQ/L (21.0-32.0); BLOOD UREA NITROGEN 13 MG/DL (7-18); CHLORIDE 99 MEQ/L (98-107); CREATININE 0.48 MG/DL (0.50-1.00); GLOMERULAR FILTRATION RATE 125 ML/MIN (>89); GLUCOSE,RANDOM 113 MG/DL (74-106); SODIUM (NA) 134 MEQ/L (136-145)
--- NOTE | 2018-01-20 22:40 | RADRPT ---
EXAM DATE/TIME: 01/20/2018 21:51 [facility] COMPARISON: CHEST SINGLE AP, October 31, 2017, 15:14. CHEST SINGLE AP, January 18, 2018, 2:27. INDICATIONS : Cough. Chest pain. MEDICAL HISTORY : Chronic obstructive pulmonary disease. SURGICAL HISTORY : Coronary artery stent. Lobectomy. ENCOUNTER: Initial ACUITY: 4 - 6 days PAIN SCORE: 2/10 LOCATION: Bilateral chest FINDINGS: There is irregular increased density seen in the left upper lung. There is volume loss with superior retraction of the left hilum. There is pleural disease over the upper left lung. This appearance was present previously. There some chronic pleural and parenchymal changes seen over the right upper lung . A new area of consolidation is not seen. The heart size is normal. The costophrenic angles are malaika r. CONCLUSION: 1. Presumed post treatment change in the left upper lung which appears unchanged. 2. Chronic change in the right upper lung. 3. An acute or new abnormality is not clearly seen. Armen Gonzalez MD on January 20, 2018 at 22:35 Board Certified Radiologist. This report was verified electronically.
[2018-01-20] MEDS ORDERED: BISACODYL 10 MG SUPP RECTAL PRN (23:15)
[2018-01-20] MEDS ORDERED: SENNOSIDES 8.6 MG TAB PO PRN (23:15)
[2018-01-20] MEDS ORDERED: MAGNESIUM HYDROXIDE SUSP 30 ML CUP PO PRN (23:15)
[2018-01-20] MEDS ORDERED: LACTULOSE SYRUP 20 GM/30 ML CUP PO PRN (23:15)
[2018-01-20] MEDS ORDERED: NALOXONE HCL 0.4 MG/ML AMP IV PUSH PRN (23:15)
[2018-01-20] MEDS ORDERED: ONDANSETRON HCL 4 MG/2 ML VIAL IVP PRN (23:15)
--- NOTE | 2018-01-20 23:15 | PD ---
Data Data Last Documented VS Vital Signs Date Time Temp Pulse Resp B/P (MAP) Pulse Ox O2 Delivery O2 Flow Rate FiO2 01/20/18 18:46 93 18 134/88 (103) 95 Room Air 01/20/18 15:45 98.2 Orders Orders Mri Brain W/O Contrast (01/20/18 16:06) Complete Blood Count With Diff (01/20/18 19:39) Comprehensive Metabolic Panel (01/20/18 19:39) Lipase (01/20/18 19:39) Urinalysis - C+S If Indicated (01/20/18 19:39) Iv Access Insert/Monitor (01/20/18 19:39) Ecg Monitoring (01/20/18 19:39) Oximetry (01/20/18 19:39) Sodium Chloride 0.9% Flush (Ns Flush) (01/20/18 19:45) Chest, Single Ap (01/20/18 ) Cath For Specimen (01/20/18 22:22) Consult Neurology (01/20/18 ) Admit Order (Ed Use Only) (01/20/18 ) Labs Laboratory Tests Test 01/20/18 20:59 White Blood Count 13.4 TH/MM3 Red Blood Count 4.62 MIL/MM3 Hemoglobin 13.9 GM/DL Hematocrit 42.0 % Mean Corpuscular Volume 90.8 FL Mean Corpuscular Hemoglobin 30.0 PG Mean Corpuscular Hemoglobin Concent 33.0 % Red Cell Distribution Width 13.7 % Platelet Count 424 TH/MM3 Mean Platelet Volume 7.1 FL Neutrophils (%) (Auto) 78.7 % Lymphocytes (%) (Auto) 11.8 % Monocytes (%) (Auto) 7.8 % Eosinophils (%) (Auto) 1.1 % Basophils (%) (Auto) 0.6 % Neutrophils # (Auto) 10.5 TH/MM3 Lymphocytes # (Auto) 1.6 TH/MM3 Monocytes # (Auto) 1.0 TH/MM3 Eosinophils # (Auto) 0.1 TH/MM3 Basophils # (Auto) 0.1 TH/MM3 CBC Comment DIFF FINAL Differential Comment Blood Urea Nitrogen 13 MG/DL Creatinine 0.48 MG/DL Random Glucose 113 MG/DL Total Protein 6.9 GM/DL Albumin 3.3 GM/DL Calcium Level 9.0 MG/DL Alkaline Phosphatase 64 U/L Aspartate Amino Transf (AST/SGOT) 18 U/L Alanine Aminotransferase (ALT/SGPT) 21 U/L Total Bilirubin 0.3 MG/DL Sodium Level 134 MEQ/L Potassium Level 3.7 MEQ/L Chloride Level 99 MEQ/L Carbon Dioxide Level 25.7 MEQ/L Anion Gap 9 MEQ/L Estimat Glomerular Filtration Rate 125 ML/MIN Lipase 122 U/L MDM Supervised Visit with DANNY: No Narrative Course At the start of my shift this patient is discharged and awaiting a ride back to her facility [facility]. According to Dr. Loredo the patient has been suffering from dizziness for some time and was sent here for an evaluation including an MRI as recommended by Dr. Christie. Her primary care physician is Dr. Russell. Patient had an MRI here which did show some chronic white matter disease but nothing acute, I received a phone call by Dr. Russell and she is expressed her concern that every time the patient gets out of bed she gets significant vertigo symptoms to the point where she throws up, states very difficult to control her nausea vomiting and that she is concerned the patient is getting dehydrated. She would like the patient to be observation status with HEP so that she can see Dr. Christie. She suggested that a observation diagnosis could be intractable nausea and vomiting however the patient has not had any nausea vomiting while I have had her in the emergency department. My examination she does have some bruising about the face which appears old and healing, no facial tenderness, she is alert and awake and oriented, cranial nerves II through XII grossly intact and nonfocal, 5 out of 5 strength in all 4 extremities. Her cerebellar testing with [id number] and heel bautista testing was negative. Her MRI result was reviewed by me as well: Last 24 hours Impressions Brain MRI 01/20/18 1606 Signed Impressions: Service Date/Time: Saturday, January 20, 2018 17:14 - CONCLUSION: 1. No acute findings or recent infarct. 2. Severe chronic white matter ischemic changes in periventricular region. Also less severe chronic white matter ischemic changes in the brainstem predominantly in the [place]. Jesus Nolasco MD Chest X-Ray 01/20/18 0000 Signed Impressions: Service Date/Time: Saturday, January 20, 2018 21:51 - CONCLUSION: 1. Presumed post treatment change in the left upper lung which appears unchanged. 2. Chronic change in the right upper lung. 3. An acute or new abnormality is not clearly seen. Armen Gonzalez MD I have added basic labs and patient's electrolytes within normal limits, blood count showed minimally elevated white blood cell count, her chest x-ray does show evidence of pulmonary fibrosis and interstitial lung disease the patient has a history of. Vital signs within normal limits. Dr. Russell is called again to reiterate her concerns the patient should be admitted. Dr. Shukla also called to discuss the patient has a history of chronic lung disease and that he received a call from Dr. Russell who has enlisted his help to try to get patient admitted. I have discussed the patient with Dr. Turk for observation status and placed routine consult to Dr. Christie. Dr. Turk is happy to place in observation status. Diagnosis Primary Impression: Dizziness Admitting Information Admitting Physician Requests: Observation Patient Instructions: General Instructions, Dizziness (GEN) Departure Forms: Tests/Procedures Additional Instruction: Please get in touch with your primary care for any further tests, MRI of brain was not significant for any strokes, hemorrhagic or ischemic in nature. And also did not show any brain tumors. Condition: Stable Marquise Coy MD January 20, 2018 23:15
[2018-01-20 23:29] VITALS: BP 170/81; PULSE 84; RESP 16; O2SAT 96
[2018-01-20] MEDS ORDERED: PILL SPLITTER OTHER PRN (23:30)
[2018-01-20] MEDS ORDERED: MECLIZINE HCL 25 MG TAB PO ONE (23:30)
[2018-01-20] MEDS ORDERED: RESP: ALBUTEROL 2.5 MG/IPRATROPIUM 0.5 MG NEB (PRN) NEB (23:30)
--- NOTE | 2018-01-20 23:31 | HHI.HP ---
HPI Service [facility] Primary Care Physician Kasie Russell, DO Admission Diagnosis Dizziness Diagnoses: Chief Complaint: vertigo Travel History International Travel<30 Days: No Contact w/Intl Traveler <30 Da: No Traveled to Known Affected Are: No History of Present Illness 77 y/o female with a history COPD, MAC, Hypothyroid, dementia, chronic dry eyes , depression, gerd presented to the ED with complaints of dizziness. She states she fall Friday hit on her face and she was seen at the hospital but not admitted, since then complaining of the room spinning, nausea, vomiting at times. She states the vertigo is worse when she lays flat. She resides currently at [facility], and she was seen by the DR at the facility who put her on some ear drops and sent her to the ED for evaluation and MRI. Per the Daughter the patient was seen by Dr. Rich outpatient and had an MRI completed as well. She was just started on Meclizine this past weekend but is unsure if she was given it at the facility. She denies any chest pain, sob, fever or chills. No headaches or double vision needed. Review of Systems Except as stated in HPI: all other systems reviewed are Neg Past Family Social History Past Medical History COPD Mycobacterium avium complex Hypothyroid dementia chronic dry eyes depression gerd Past Surgical History Appendectomy Lobectomy Cardiac stents 2015 Reported Medications Reported Meds & Active Scripts Active Cipro (Ciprofloxacin HCl) 500 Mg Tab 500 Mg PO BID Reported Dulcolax Supp (Bisacodyl) 10 Mg Supp 10 Mg RECTAL DAILY PRN Milk of Magnesia Liq (Magnesium Hydroxide) 400 Mg/5 Ml Susp 30 Ml PO ONCE PRN [Oxygen] 2 Liter LEXI.CANULA CONTINUOUS Enema Disposable (Sodium Phosphates) 19 Gram-7 Gram/118 Ml Amy 1 Applic RECTAL ON 4TH DAY PRN Restasis Opth (Cyclosporine Opth) 0.05% Emul 1 Drop EACH EYE BID Levothyroxine (Levothyroxine Sodium) 50 Mcg Tab 50 Mcg PO DAILY Tylenol (Acetaminophen) 325 Mg Tab 650 Mg PO Q6H PRN Duoneb (Ipratropium-Albuterol Neb) 0.5-2.5 Mg/3 Ml Neb 3 Ml NEB TID Duoneb (Ipratropium-Albuterol Neb) 0.5-2.5 Mg/3 Ml Neb 3 Ml NEB Q6HR PRN Tessalon Perles (Benzonatate) 100 Mg Cap 100 Mg PO TID PRN Robafen (Guaifenesin) 100 Mg/5 Ml Syp 200 Mg PO Q6HR PRN Prednisone 5 Mg Tab 7.5 Mg PO DAILY [facility] (Lactobacillus-Inulin) 15 Billion Cell Cap 1 Cap PO DAILY 14 Days Zofran (Ondansetron HCl) 8 Mg Tab 8 Mg PO Q8HR PRN Meclizine 25 (Meclizine HCl) 25 Mg Tab 25 Mg PO Q6HR PRN Guaifenesin ER (Guaifenesin) 600 Mg Tab.er.12h 600 Mg PO Q12HR Tlklqywj-Prhqhqnqg-AN Otic Drops (Neomycin/Polymyxin/Hydrocortisone) 1 % Soln 2 Drop EACH EAR BID 7 Days Biotin 10 Mg Tab 10 Mg PO DAILY Brovana Neb (Arformoterol Neb) 15 Mcg/2 Ml Vial 1 Nebule NEB BID Maintenance treatment of bronchoconstriction in COPD. Sertraline (Sertraline HCl) 50 Mg Tab 25 Mg PO HS Namenda (Memantine) 10 Mg Tab 10 Mg PO HS Namenda (Memantine) 5 Mg Tab 5 Mg PO DAILY Fosamax (Alendronate Sodium) 70 Mg Tab 70 Mg PO Q7D D3 (Cholecalciferol) 1,000 Unit Cap 1,000 Units PO DAILY Omeprazole 20 Mg Tab 20 Mg PO DAILY Allergies: Coded Allergies: sulfamethoxazole (Verified Adverse Reaction, Intermediate, VOMITING, ) trimethoprim (Verified Adverse Reaction, Intermediate, VOMITING, 01/20/18) Active Ordered Medications Current Medications Medications (Trade) Dose Ordered Sig/Luz Route Start Time Stop Time Status Last Admin (NS Flush) 2 ml UNSCH PRN IV FLUSH 01/20/18 19:45 (NS Flush) 2 ml UNSCH PRN IV FLUSH 01/20/18 23:15 UNV (NS Flush) 2 ml BID IV FLUSH 01/21/18 09:00 UNV (Zofran Inj) 4 mg Q6H PRN IVP 01/20/18 23:15 UNV (Narcan Inj) 0.4 mg UNSCH PRN IV PUSH 01/20/18 23:15 UNV (Milk Of Magnesia Liq) 30 ml Q12H PRN PO 01/20/18 23:15 UNV (Senokot) 17.2 mg Q12H PRN PO 01/20/18 23:15 UNV (Dulcolax Supp) 10 mg DAILY PRN RECTAL 01/20/18 23:15 UNV (Lactulose Liq) 30 ml DAILY PRN PO 01/20/18 23:15 UNV (Cipro) 500 mg BID PO 01/21/18 09:00 UNV (Duoneb Neb) 1 ampule Q6HR NEB PRN NEB 01/20/18 23:30 (Duoneb Neb) 1 ampule TID NEB 01/21/18 09:00 UNV (Namenda) 5 mg DAILY PO 01/21/18 09:00 UNV (Namenda) 10 mg HS PO 01/21/18 21:00 UNV (Deltasone) 7.5 mg DAILY PO 01/21/18 09:00 UNV (Zoloft) 25 mg HS PO 01/21/18 21:00 UNV Non-Formulary Medication 1 nebule BID NEB 01/21/18 09:00 UNV Non-Formulary Medication 20 mg DAILY PO 01/21/18 09:00 UNV Family History Patient denies any family history Social History Tobacco use: Denies Alcohol use: Denies Physical Exam Vital Signs Vital Signs Date Time Temp Pulse Resp B/P (MAP) Pulse Ox O2 Delivery O2 Flow Rate FiO2 01/20/18 18:46 93 18 134/88 (103) 95 Room Air 01/20/18 15:49 93 18 96 Room Air 01/20/18 15:45 98.2 93 18 153/86 (108) 96 Room Air 01/20/18 15:37 98.2 93 18 153/86 (108) 96 Physical Exam GENERAL: This is a well-nourished, well-developed patient, who is experiencing dizziness SKIN: Ecchymosis around bilateral eyes, healing HEAD: Atraumatic. Normocephalic. EYES: Pupils equal round and reactive. Extraocular motions intact. ENT: Right ear canal reddened, left ear impacted with wax CARDIOVASCULAR: Regular rate and rhythm without murmurs, gallops, or rubs. RESPIRATORY: Clear to auscultation. Breath sounds equal bilaterally. No wheezes , rales, or rhonchi. GASTROINTESTINAL: Abdomen soft, non-tender, nondistended. MUSCULOSKELETAL: Extremities without clubbing, cyanosis, or edema. No calf tenderness. NEUROLOGICAL: Awake and alert. Motor and sensory grossly within normal limits. Normal speech. Laboratory Laboratory Tests Test 01/20/18 20:59 White Blood Count 13.4 Red Blood Count 4.62 Hemoglobin 13.9 Hematocrit 42.0 Mean Corpuscular Volume 90.8 Mean Corpuscular Hemoglobin 30.0 Mean Corpuscular Hemoglobin Concent 33.0 Red Cell Distribution Width 13.7 Platelet Count 424 Mean Platelet Volume 7.1 Neutrophils (%) (Auto) 78.7 Lymphocytes (%) (Auto) 11.8 Monocytes (%) (Auto) 7.8 Eosinophils (%) (Auto) 1.1 Basophils (%) (Auto) 0.6 Neutrophils # (Auto) 10.5 Lymphocytes # (Auto) 1.6 Monocytes # (Auto) 1.0 Eosinophils # (Auto) 0.1 Basophils # (Auto) 0.1 CBC Comment DIFF FINAL Differential Comment Blood Urea Nitrogen 13 Creatinine 0.48 Random Glucose 113 Total Protein 6.9 Albumin 3.3 Calcium Level 9.0 Alkaline Phosphatase 64 Aspartate Amino Transf (AST/SGOT) 18 Alanine Aminotransferase (ALT/SGPT) 21 Total Bilirubin 0.3 Sodium Level 134 Potassium Level 3.7 Chloride Level 99 Carbon Dioxide Level 25.7 Anion Gap 9 Estimat Glomerular Filtration Rate 125 Lipase 122 Result Diagram: 01/20/18205801/20/182058 Imaging Last Impressions Brain MRI 01/20/18 1606 Signed Impressions: Service Date/Time: Saturday, January 20, 2018 17:14 - CONCLUSION: 1. No acute findings or recent infarct. 2. Severe chronic white matter ischemic changes in periventricular region. Also less severe chronic white matter ischemic changes in the brainstem predominantly in the liberty. Jesus Nolasco MD Chest X-Ray 01/20/18 0000 Signed Impressions: Service Date/Time: Saturday, January 20, 2018 21:51 - CONCLUSION: 1. Presumed post treatment change in the left upper lung which appears unchanged. 2. Chronic change in the right upper lung. 3. An acute or new abnormality is not clearly seen. Armen Gonzalez MD Caprini VTE Risk Assessment Caprini VTE Risk Assessment: No/Low Risk (score <= 1) Caprini Risk Assessment Model Point Value = 1 Point Value = 2 Point Value = 3 Point Value = 5 Age 41-60 Minor surgery BMI > 25 kg/m2 Swollen legs Varicose veins or History of unexplained or recurrent spontaneous Oral contraceptives or hormone replacement Sepsis (< 1 month) Serious lung disease, including pneumonia (< 1 month) Abnormal pulmonary function Acute myocardial infarction Congestive heart failure (< 1 month) History of inflammatory bowel disease Medical patient at bed rest Age 61-74 Arthroscopic surgery Major open surgery (> 45 min) Laparoscopic surgery (> 45 min) Malignancy Confined to bed (> 72 hours) Immobilizing plaster cast Central venous access Age >= 75 History of VTE Family history of VTE Factor V Leiden Prothrombin [id number] Lupus anticoagulant Anticardiolipin antibodies Elevated serum homocysteine Heparin-induced thrombocytopenia Other congenital or acquired thrombophilia Stroke (< 1 month) Elective arthroplasty Hip, pelvis, or leg fracture Acute spinal cord injury (< 1 month) Prophylaxis Regimen Total Risk Factor Score Risk Level Prophylaxis Regimen 0-1 Low Early ambulation 2 Moderate Order ONE of the following: *Sequential Compression Device (SCD) *Heparin 5000 units SQ BID 3-4 Higher Order ONE of the following medications: *Heparin 5000 units SQ TID *Enoxaparin/Lovenox 40 mg SQ daily (WT < 150 kg, CrCl > 30 mL/min) *Enoxaparin/Lovenox 30 mg SQ daily (WT < 150 kg, CrCl > 10-29 mL/min) *Enoxaparin/Lovenox 30 mg SQ BID (WT < 150 kg, CrCl > 30 mL/min) AND/OR *Sequential Compression Device (SCD) 5 or more Highest Order ONE of the following medications: *Heparin 5000 units SQ TID (Preferred with Epidurals) *Enoxaparin/Lovenox 40 mg SQ daily (WT < 150 kg, CrCl > 30 mL/min) *Enoxaparin/Lovenox 30 mg SQ daily (WT < 150 kg, CrCl > 10-29 mL/min) *Enoxaparin/Lovenox 30 mg SQ BID (WT < 150 kg, CrCl > 30 mL/min) AND *Sequential Compression Device (SCD) Assessment and Plan Problem List: (1) Vertigo ICD Code: R42 - Dizziness and giddiness Status: Acute (2) COPD (chronic obstructive pulmonary disease) ICD Code: J44.9 - Chronic obstructive pulmonary disease, unspecified Status: Chronic Assessment and Plan 77 y/o female with a history COPD, MAC, Hypothyroid, dementia, chronic dry eyes , depression, gerd presented to the ED with complaints of dizziness. Dizziness, possible benign paroxysmal positional vertigo MRI brain reviewed and shows chronic white matter ischemic changes in the brainstem predominantly in the liberty -Consult neurology for recommendations -PT eval, possible Jenni maneuver -Meclizine PRN -Debrox to left ear for wax impaction, patient may benefit from ENT if needed COPD, chronic -Duonebs scheduled -Incentive spirometer Hypothyroid, chronic -Resume home Synthroid, check TSH Dementia, chronic -Resume home medications DVT prophylaxis: SCDs Discussed Condition With Patient, RN and patient's daughter Problem Qualifiers (1) COPD (chronic obstructive pulmonary disease): Qualified Codes: J44.9 - Chronic obstructive pulmonary disease, unspecified Mireille Alan January 20, 2018 23:31
[2018-01-20 23:41] LABS: AMORPHOUS SEDIMENT, URINE RARE; BACTERIA, URINE FEW /hpf; BILIRUBIN, URINE NEG (NEG); BLOOD, URINE SMALL (NEG); GLUCOSE,URINE NEG (NEG); KETONE, URINE NEG (NEG); MUCUS URINE FEW /lpf (OCC); NITRITE,URINE POS (NEG); SQUAMOUS EPITHELIAL CELL URINE 1 /hpf (0-5); URINE COLOR YELLOW (YELLW/STRAW); URINE LEUKOCYTE ESTERASE LARGE (NEG); WHITE BLOOD CELL CLUMPS MOD
[2018-01-21] VITALS (8 sets, daily range): BP systolic 86–177; BP diastolic 49–90; PULSE 75–94; RESP 16–18; TEMP 98.1–98.7; O2SAT 93–99
[2018-01-21] MEDS ORDERED: CARBAMIDE PEROXIDE 6.5% OTIC SOLN 15 ML BTL LEFT EAR ONE
[2018-01-21] MEDS ORDERED: ENALAPRILAT 1.25 MG/ML VIAL IV PUSH PRN (03:45)
[2018-01-21] MEDS ORDERED: MECLIZINE HCL 25 MG TAB PO PRN (03:45)
[2018-01-21 07:17] LABS: AUTOMATED NEUTROPHIL # 8.2 TH/MM3 (1.8-7.7); BASOPHIL # 0.1 TH/MM3 (0-0.2); BASOPHIL % 0.8 % (0.0-2.0); EOSINOPHIL # 0.2 TH/MM3 (0-0.4); EOSINOPHIL % 1.7 % (0.0-4.0); HEMOGLOBIN 14.1 GM/DL (11.6-15.3); LYMPHOCYTE # 1.6 TH/MM3 (1.0-4.8); MEAN CORPUSCULAR HEMOGLOBIN 30.2 PG (27.0-34.0); MEAN CORPUSCULAR HGB CONC 33.5 % (32.0-36.0); MONO % 9.1 % (0.0-8.0); NEUT % 74.4 % (16.0-70.0); PLATELET COUNT 420 TH/MM3 (150-450); RED BLOOD COUNT 4.67 MIL/MM3 (4.00-5.30); RED CELL DISTRIBUTION WIDTH 13.8 % (11.6-17.2); WHITE BLOOD COUNT 11.1 TH/MM3 (4.0-11.0)
[2018-01-21] MEDS: RESP: ALBUTEROL 2.5 MG/IPRATROPIUM 0.5 MG NEB (SCH) NEB ×3 (07:34→20:00)
[2018-01-21 07:39] LABS: ALBUMIN 3.2 GM/DL (3.4-5.0); AST (GOT) 12 U/L (15-37); BLOOD UREA NITROGEN 13 MG/DL (7-18); CALCIUM 8.8 MG/DL (8.5-10.1); CHLORIDE 101 MEQ/L (98-107); CREATININE 0.69 MG/DL (0.50-1.00); GLOMERULAR FILTRATION RATE 82 ML/MIN (>89); GLUCOSE,RANDOM 86 MG/DL (74-106); SODIUM (NA) 138 MEQ/L (136-145)
[2018-01-21 07:40] LABS: ALT (GPT) 19 U/L (10-53)
[2018-01-21 07:49] LABS: ALKALINE PHOSPHATASE 60 U/L (45-117); TOTAL BILIRUBIN ADULT 0.4 MG/DL (0.2-1.0); TOTAL PROTEIN 6.6 GM/DL (6.4-8.2)
[2018-01-21] MEDS ORDERED: CIPROFLOXACIN 500 MG TAB PO SCH (09:00)
[2018-01-21] MEDS: CARBAMIDE PEROXIDE 6.5% OTIC SOLN 15 ML BTL LEFT EAR SCH ×2 (09:00→20:42)
[2018-01-21] MEDS ORDERED: ARFORMOTEROL NEB SCH (09:00)
[2018-01-21] MEDS: CIPROFLOXACIN 500 MG TAB PO SCH ×2 (09:02→20:40)
[2018-01-21] MEDS: PANTOPRAZOLE SOD 20 MG DELAYED RELEASE TAB PO SCH (09:03)
[2018-01-21] MEDS: MECLIZINE HCL 25 MG TAB PO SCH ×3 (09:03→20:41)
[2018-01-21] MEDS: MEMANTINE HCL 5 MG TAB PO SCH (09:03)
[2018-01-21] MEDS: predniSONE 5 MG TAB PO SCH (09:03)
[2018-01-21] MEDS: SODIUM CHLORIDE 0.9% FLUSH 10 ML FLUSH IV FLUSH SCH ×2 (09:06→20:42)
[2018-01-21] MEDS ORDERED: POTASSIUM CHLORIDE 20 MEQ CONTROLLED RELEASE TAB PO ONE (09:15)
--- NOTE | 2018-01-21 10:00 | HHI.PR ---
Subjective Remarks Follow-up dizziness January 21, 2018-patient seen and examined, reported improvement of dizziness since admission. Denies any syncopal episode. Denies any visual changes. Vital stable Objective Vitals Vital Signs Date Time Temp Pulse Resp B/P (MAP) Pulse Ox O2 Delivery O2 Flow Rate FiO2 01/21/18 09:42 98.2 77 16 135/85 (102) 99 01/21/18 07:27 98.3 75 16 108/56 (73) 95 01/21/18 04:50 106/55 (72) 01/21/18 03:16 98.1 89 18 177/90 (119) 93 01/21/18 01:03 98.4 79 18 147/69 (95) 94 01/20/18 23:30 01/20/18 23:29 84 16 170/81 (110) 96 Room Air 01/20/18 18:46 93 18 134/88 (103) 95 Room Air 01/20/18 15:49 93 18 96 Room Air 01/20/18 15:45 98.2 93 18 153/86 (108) 96 Room Air 01/20/18 15:37 98.2 93 18 153/86 (108) 96 Result Diagram: 01/21/18 0626 01/21/18 0626 Imaging Last Impressions Brain MRI 01/20/18 1606 Signed Impressions: Service Date/Time: Saturday, January 20, 2018 17:14 - CONCLUSION: 1. No acute findings or recent infarct. 2. Severe chronic white matter ischemic changes in periventricular region. Also less severe chronic white matter ischemic changes in the brainstem predominantly in the liberty. Jesus Nolasco MD Chest X-Ray 01/20/18 0000 Signed Impressions: Service Date/Time: Saturday, January 20, 2018 21:51 - CONCLUSION: 1. Presumed post treatment change in the left upper lung which appears unchanged. 2. Chronic change in the right upper lung. 3. An acute or new abnormality is not clearly seen. Armen Gonzalez MD Objective Remarks GENERAL: NAD SKIN: Warm and dry. HEAD: Normocephalic. EYES: No scleral icterus. No injection or drainage. NECK: Supple, trachea midline. No JVD or lymphadenopathy. CARDIOVASCULAR: Regular rate and rhythm without murmurs, gallops, or rubs. RESPIRATORY: Breath sounds equal bilaterally. No accessory muscle use. GASTROINTESTINAL: Abdomen soft, non-tender, nondistended. MUSCULOSKELETAL: No cyanosis, or edema. BACK: Nontender without obvious deformity. No CVA tenderness. A/P Problem List: (1) Vertigo ICD Code: R42 - Dizziness and giddiness Status: Acute (2) COPD (chronic obstructive pulmonary disease) ICD Code: J44.9 - Chronic obstructive pulmonary disease, unspecified Status: Chronic Assessment and Plan 77-year-old female with Dizziness, possible benign paroxysmal positional vertigo -Symptoms improved since admission's -MRI brain reviewed and shows chronic white matter ischemic changes in the brainstem predominantly in the liberty -PT eval, recommend Jenni maneuver as needed -Meclizine scheduled -Debrox to left ear for wax impaction, patient may benefit from ENT outpatient COPD, chronic -Duonebs scheduled -Incentive spirometer Hypothyroid, chronic -Continue home Synthroid, Dementia, chronic -Continue home medications DVT prophylaxis: SCDs Discharge Planning Discharge patient to home Condition on discharge: Improved Regular Diet as tolerated Ad Cecelia activity Rx written:See EMR Follow-up with primary care physician Problem Qualifiers (1) COPD (chronic obstructive pulmonary disease): Qualified Codes: J44.9 - Chronic obstructive pulmonary disease, unspecified Danis Davis MD January 21, 2018 09:59
[2018-01-21] MEDS ORDERED: CARB6.5S5 LEFT EAR (10:03)
[2018-01-21] MEDS ORDERED: MECL1TAB42 PO (10:03)
--- NOTE | 2018-01-21 10:59 | HHI.DCPOC ---
Discharge Care Plan Diagnosis: (1) Vertigo (2) COPD (chronic obstructive pulmonary disease) Your Health Problems Are: Shortness of Breath Additional Problems Dizziness Goals to Promote Your Health * To prevent worsening of your condition and complications * To maintain your health at the optimal level Directions to Meet Your Goals Take your medications as prescribed Follow your dietary instruction Follow activity as directed Keep your appointments as scheduled Take your immunizations and boosters as scheduled If your symptoms worsen call your PCP, if no PCP go to Urgent Care Center or Emergency Room Smoking is Dangerous to Your Health. Avoid second hand smoke Call the 24-hour hour crisis hotline for domestic abuse at Donnie Watson January 21, 2018 10:59
--- NOTE | 2018-01-21 15:24 | MB ---
cc: Fly Cason MD, PhD DATE: 01/21/2018 REASON FOR CONSULTATION: Vertigo. HISTORY OF PRESENT ILLNESS: Ms. Reyes is a very nice 77-year-old woman who fell out of her bed at the [facility] on Friday night. She struck her head, causing facial bruising. Since then, has had severe dizziness and confusion. She also has weakness of the arms and legs. PAST MEDICAL HISTORY: Remarkable for COPD, mycobacterium avium complex, hypothyroidism, dementia, depression, GERD, appendectomy, lobectomy, cardiac stents. CURRENT MEDICATIONS: Namenda 10 mg at bedtime, Zoloft 25 mg daily, Antivert 25 mg q. 6 hours, ciprofloxacin, Namenda 5 mg daily, prednisone 7.5 mg daily, Protonix, Debrox, DuoNeb, Vasotec p.r.n. NEUROLOGIC EXAMINATION: VITAL SIGNS: Blood pressure is 86/49, pulse 91, respiratory rate is 16, temperature 98 degrees. HIGHER CORTICAL FUNCTION: She is alert and oriented x 3. Follows commands. Speech is fluent. Cranial nerves intact. MOTOR: She has generalized weakness in both upper and lower extremities rated at 4/5, proximally and distally. Reflexes are 2+, symmetric. DIAGNOSTIC DATA: Brain MRI: No acute change present. LABORATORY DATA: White count 11,100, hemoglobin 14.1, hematocrit 42%, platelet count 420,000. Sodium is 138, potassium 3.1, chloride 101, CO2 is 28, BUN is 13, creatinine , AST 12, ALT 19. IMPRESSION: 1. Probable concussion with postconcussive syndrome with vertigo. I agree with the Antivert. 2. Rule out cervical myelopathy. I would like to get an MRI of the cervical spine. Fly Cason MD, PhD HAYES/SB , 03:09 PM , 03:24 PM
--- NOTE | 2018-01-21 18:00 | RADRPT ---
EXAM DATE/TIME: 01/21/2018 16:57 [facility] COMPARISON: MRI BRAIN W/O CONTRAST, January 20, 2018, 17:14. INDICATIONS : Myelopathy. Dizziness, Nausea - post head injury MEDICAL HISTORY : Cardiovascular disease SURGICAL HISTORY : Appendectomy. Stent 2016, Lobectomy (Left 2001) ENCOUNTER: Subsequent ACUITY: 4-6 days PAIN SCORE: 0/10 LOCATION: cervical TECHNIQUE: Multiplanar, multisequence MRI examination of the cervical spine was performed. FINDINGS: VERTEBRAE: Normal vertebral body height. Homogeneous marrow signal. ALIGNMENT: Minimal retrolisthesis of C4 relative to C5, C5 relative to C6 and C6 relative to C7. CORD: Normal configuration and signal. POST FOSSA: The cerebellar tonsils are normal in position. Abnormal signal in the liberty which is nonspecific. C2-C3: The thecal sac has a normal configuration. There is no evidence of disc herniation or spinal canal s tenosis. The neural foramina are patent bilaterally. C3-C4: The thecal sac has a normal configuration. There is no evidence of disc herniation or spinal canal s tenosis. The neural foramina are patent bilaterally. C4-C5: Slight broad dorsal disc protrusion central to minimally right paracentral with mild asymmetrically r ight-sided foraminal narrowing. Canal appears adequate. C5-C6: Broad dorsal disc osteophyte mildly indenting thecal sac. Mild degree of canal stenosis. Mild asymmet francisco right-sided foraminal stenosis. C6-C7: Broad mild central disc protrusion which railing osteophytic spurring. Mild canal stenosis. Mild and symmetrically right-sided foraminal stenosis. C7-T1: The thecal sac has a normal configuration. There is no evidence of disc herniation or spinal canal s tenosis. The neural foramina are patent bilaterally. CONCLUSION: No acute findings. Disc disease and bony spondylosis producing a mild degree of canal stenosis most s ignificantly at C5-6 and C6-7 with asymmetrically right-sided foraminal stenosis at the C5, C6 and C7 nerve root levels. Armen Oviedo MD on January 21, 2018 at 17:53 Board Certified Radiologist. This report was verified electronically.
[2018-01-21] MEDS: SODIUM CHLOR 0.9% 1000 ML INJ 1,000 ML IV SCH (20:42)
[2018-01-21] MEDS ORDERED: MEMANTINE HCL 10 MG TAB PO SCH (21:00)
[2018-01-21] MEDS ORDERED: SERTRALINE HCL 50 MG TAB PO SCH (21:00)
[2018-01-21] MEDS ORDERED: ONDANSETRON ODT 4 MG TAB SL PRN (23:00)
[2018-01-22] VITALS: BP 145/70; PULSE 88; RESP 17; TEMP 97.6; O2SAT 96
[2018-01-22 03:54] VITALS: BP 139/61; PULSE 80; RESP 16; TEMP 98.7; O2SAT 96
[2018-01-22] MEDS: MECLIZINE HCL 25 MG TAB PO SCH ×2 (03:59→10:05)
[2018-01-22 05:09] LABS: BICARBONATE 23.8 MEQ/L (21.0-32.0); CALCIUM 8.4 MG/DL (8.5-10.1); CREATININE 1.44 MG/DL (0.50-1.00)
[2018-01-22] MEDS: SODIUM CHLOR 0.9% 1000 ML INJ 1,000 ML IV SCH (06:29)
[2018-01-22 07:19] VITALS: BP 130/62; PULSE 84; RESP 16; TEMP 98.6; O2SAT 95
[2018-01-22] MEDS: RESP: ALBUTEROL 2.5 MG/IPRATROPIUM 0.5 MG NEB (SCH) NEB (08:10)
[2018-01-22] MEDS ORDERED: AUGM875T3 PO (08:31)
[2018-01-22] MEDS ORDERED: LACTTAB8 PO (08:31)
[2018-01-22] MEDS ORDERED: CIPROFLOXACIN 500 MG TAB PO SCH (09:00)
[2018-01-22] MEDS ORDERED: AMOXICILLIN/CLAVULANATE K 875 MG TAB PO ONE (09:15)
--- NOTE | 2018-01-22 09:16 | HHI.PR ---
Subjective Remarks Follow-up dizziness January 21, 2018-patient seen and examined, reported improvement of dizziness since admission. Denies any syncopal episode. Denies any visual changes. Vital stable January 22, 2018-patient seen and examined, treated with IV fluid overnight secondary to low BP which has improved. Patient reported improvement of dizziness. No acute event overnight. Objective Vitals Vital Signs Date Time Temp Pulse Resp B/P (MAP) Pulse Ox O2 Delivery O2 Flow Rate FiO2 01/22/18 07:19 98.6 84 16 130/62 (84) 95 01/22/18 03:54 98.7 80 16 139/61 (87) 96 01/22/18 00:00 97.6 88 17 145/70 (95) 96 01/21/18 21:46 98.3 94 16 119/64 (82) 97 01/21/18 14:59 98.6 91 16 86/49 (61) 96 01/21/18 11:00 98.7 92 16 89/52 (64) 95 01/21/18 09:42 98.2 77 16 135/85 (102) 99 I/O 01/21/18 01/21/18 01/21/18 01/22/18 01/22/18 01/22/18 07:00 15:00 23:00 07:00 15:00 23:00 Intake Total 480 ml Balance 480 ml Intake Oral 480 ml Result Diagram: 01/21/18 0626 01/22/18 0415 Imaging Last Impressions Cervical Spine MRI 01/21/18 0000 Signed Impressions: Service Date/Time: Sunday, January 21, 2018 16:57 - CONCLUSION: No acute findings. Disc disease and bony spondylosis producing a mild degree of canal stenosis most significantly at C5-6 and C6-7 with asymmetrically right-sided foraminal stenosis at the C5, C6 and C7 nerve root levels. Armen Oviedo MD Brain MRI 01/20/18 1606 Signed Impressions: Service Date/Time: Saturday, January 20, 2018 17:14 - CONCLUSION: 1. No acute findings or recent infarct. 2. Severe chronic white matter ischemic changes in periventricular region. Also less severe chronic white matter ischemic changes in the brainstem predominantly in the liberty. Jesus Nolasco MD Chest X-Ray 01/20/18 0000 Signed Impressions: Service Date/Time: Saturday, January 20, 2018 21:51 - CONCLUSION: 1. Presumed post treatment change in the left upper lung which appears unchanged. 2. Chronic change in the right upper lung. 3. An acute or new abnormality is not clearly seen. Armen Gonzalez MD Objective Remarks GENERAL: NAD SKIN: Warm and dry. HEAD: Normocephalic. EYES: No scleral icterus. No injection or drainage. NECK: Supple, trachea midline. No JVD or lymphadenopathy. CARDIOVASCULAR: Regular rate and rhythm without murmurs, gallops, or rubs. RESPIRATORY: Breath sounds equal bilaterally. No accessory muscle use. GASTROINTESTINAL: Abdomen soft, non-tender, nondistended. MUSCULOSKELETAL: No cyanosis, or edema. BACK: Nontender without obvious deformity. No CVA tenderness. A/P Problem List: (1) Vertigo ICD Code: R42 - Dizziness and giddiness Status: Acute (2) COPD (chronic obstructive pulmonary disease) ICD Code: J44.9 - Chronic obstructive pulmonary disease, unspecified Status: Chronic (3) UTI (urinary tract infection) ICD Code: N39.0 - Urinary tract infection, site not specified Status: Acute Assessment and Plan 77-year-old female with Dizziness, possible benign paroxysmal positional vertigo -Symptoms improved since admission's -MRI brain reviewed and shows chronic white matter ischemic changes in the brainstem predominantly in the liberty MRI cervical spine noted and review -Appreciate input from Neurology -PT eval, recommend Jenni maneuver as needed -Meclizine scheduled -Debrox to left ear for wax impaction, patient may benefit from ENT outpatient UTI Currently on Cipro pending culture sensitivity Hypotension Improving with IVF hydration COPD, chronic -Duonebs scheduled -Incentive spirometer Hypothyroid, chronic -Continue home Synthroid, Dementia, chronic -Continue home medications DVT prophylaxis: SCDs Discharge Planning Discharge patient to home Condition on discharge: Improved Regular Diet as tolerated Ad Cecelia activity Rx written:See EMR Follow-up with primary care physician Problem Qualifiers (1) COPD (chronic obstructive pulmonary disease): Qualified Codes: J44.9 - Chronic obstructive pulmonary disease, unspecified Danis Davis MD January 22, 2018 09:16
--- NOTE | 2018-01-22 09:19 | HHI.DS ---
Discharge Summary Admission Date January 20, 2018 at 23:07 Discharge Date: January 22, 2018 Admitting Diagnosis Dizziness (1) Vertigo ICD Code: R42 - Dizziness and giddiness Status: Acute (2) COPD (chronic obstructive pulmonary disease) ICD Code: J44.9 - Chronic obstructive pulmonary disease, unspecified Status: Chronic (3) UTI (urinary tract infection) ICD Code: N39.0 - Urinary tract infection, site not specified Status: Acute Procedures none Brief History - From Admission 77 y/o female with a history COPD, MAC, Hypothyroid, dementia, chronic dry eyes , depression, gerd presented to the ED with complaints of dizziness. She states she fall Friday hit on her face and she was seen at the hospital but not admitted, since then complaining of the room spinning, nausea, vomiting at times. She states the vertigo is worse when she lays flat. She resides currently at [facility], and she was seen by the DR at the facility who put her on some ear drops and sent her to the ED for evaluation and MRI. Per the Daughter the patient was seen by Dr. Rich outpatient and had an MRI completed as well. She was just started on Meclizine this past weekend but is unsure if she was given it at the facility. She denies any chest pain, sob, fever or chills. No headaches or double vision needed. CBC/BMP: 01/21/18 0626 01/22/18 0415 Significant Findings Laboratory Tests Test 01/20/18 20:59 01/20/18 23:16 01/21/18 06:26 01/22/18 04:15 White Blood Count 13.4 TH/MM3 (4.0-11.0) 11.1 TH/MM3 (4.0-11.0) Neutrophils (%) (Auto) 78.7 % (16.0-70.0) 74.4 % (16.0-70.0) Neutrophils # (Auto) 10.5 TH/MM3 (1.8-7.7) 8.2 TH/MM3 (1.8-7.7) Monocytes # (Auto) 1.0 TH/MM3 (0-0.9) 1.0 TH/MM3 (0-0.9) Creatinine 0.48 MG/DL (0.50-1.00) 1.44 MG/DL (0.50-1.00) Random Glucose 113 MG/DL (74-106) Albumin 3.3 GM/DL (3.4-5.0) 3.2 GM/DL (3.4-5.0) Sodium Level 134 MEQ/L (136-145) Urine Turbidity HAZY (CLEAR) Urine Occult Blood SMALL (NEG) Urine Nitrite POS (NEG) Urine Leukocyte Esterase LARGE (NEG) Urine RBC 13 /hpf (0-3) Urine WBC 141 /hpf (0-5) Urine WBC Clumps MOD (NONE) Urine Bacteria FEW /hpf (NONE) Urine Mucus FEW /lpf (OCC) Monocytes (%) (Auto) 9.1 % (0.0-8.0) Aspartate Amino Transf (AST/SGOT) 12 U/L (15-37) Potassium Level 3.1 MEQ/L (3.5-5.1) Estimat Glomerular Filtration Rate 82 ML/MIN (>89) 35 ML/MIN (>89) Blood Urea Nitrogen 27 MG/DL (7-18) Calcium Level 8.4 MG/DL (8.5-10.1) Imaging Last Impressions Cervical Spine MRI 01/21/18 0000 Signed Impressions: Service Date/Time: Sunday, January 21, 2018 16:57 - CONCLUSION: No acute findings. Disc disease and bony spondylosis producing a mild degree of canal stenosis most significantly at C5-6 and C6-7 with asymmetrically right-sided foraminal stenosis at the C5, C6 and C7 nerve root levels. Armen Oviedo MD Brain MRI 01/20/18 1606 Signed Impressions: Service Date/Time: Saturday, January 20, 2018 17:14 - CONCLUSION: 1. No acute findings or recent infarct. 2. Severe chronic white matter ischemic changes in periventricular region. Also less severe chronic white matter ischemic changes in the brainstem predominantly in the liberty. Jesus Nolasco MD Chest X-Ray 01/20/18 0000 Signed Impressions: Service Date/Time: Saturday, January 20, 2018 21:51 - CONCLUSION: 1. Presumed post treatment change in the left upper lung which appears unchanged. 2. Chronic change in the right upper lung. 3. An acute or new abnormality is not clearly seen. Armen Gonzalez MD PE at Discharge GENERAL: NAD SKIN: Warm and dry. HEAD: Normocephalic. EYES: No scleral icterus. No injection or drainage. NECK: Supple, trachea midline. No JVD or lymphadenopathy. CARDIOVASCULAR: Regular rate and rhythm without murmurs, gallops, or rubs. RESPIRATORY: Breath sounds equal bilaterally. No accessory muscle use. GASTROINTESTINAL: Abdomen soft, non-tender, nondistended. MUSCULOSKELETAL: No cyanosis, or edema. BACK: Nontender without obvious deformity. No CVA tenderness. Hospital Course While in hospital, patient was treated for: Dizziness, possible benign paroxysmal positional vertigo -Symptoms improved since admission's -MRI brain reviewed and shows chronic white matter ischemic changes in the brainstem predominantly in the liberty MRI cervical spine noted and review -Neurology was consult -PT eval, recommend Jenni maneuver as needed -Patient was treated with meclizine scheduled -She was also treated with Debrox to left ear for wax impaction, patient may benefit from ENT outpatient UTI She was treated with antibiotic Hypotension Improved with IVF hydration COPD, chronic -Duonebs scheduled -Incentive spirometer Hypothyroid, chronic -She was treated with Synthroid, Dementia, chronic -She was continued on her home medications DVT prophylaxis: SCDs Pt Condition on Discharge: Good Discharge Disposition: Discharge to SNF Discharge Time: <= 30 minutes Discharge Instructions DIET: Follow Instructions for: Heart Healthy Diet Activities you can perform: Regular-No Restrictions Danis Davis MD January 22, 2018 09:19
[2018-01-22] MEDS: PANTOPRAZOLE SOD 20 MG DELAYED RELEASE TAB PO SCH (10:05)
[2018-01-22] MEDS: predniSONE 5 MG TAB PO SCH (10:05)
[2018-01-22] MEDS: MEMANTINE HCL 5 MG TAB PO SCH (10:05)
[2018-01-22] MEDS: SODIUM CHLORIDE 0.9% FLUSH 10 ML FLUSH IV FLUSH SCH (10:05)
== END 2018-01-22 12:37 ==
LOC: NEPC 15:01 → NEDA 23:07 → NEPFCDU 23:45
PROVIDERS: ADMIT Hospitalist; ATTEND Hospitalist
DX: R42 Dizziness and giddiness (principal); N39.0 Urinary tract infection, site not specified; I95.9 Hypotension, unspecified; J44.9 Chronic obstructive pulmonary disease, unspecified; G30.9 Alzheimer's disease, unspecified; F02.80 Dementia in other diseases classified elsewhere, unspecified severity, without behavioral disturbance, psychotic disturbance, mood disturbance, and anxiety; E03.9 Hypothyroidism, unspecified; K21.9 Gastro-esophageal reflux disease without esophagitis; H04.123 Dry eye syndrome of bilateral lacrimal glands; R11.2 Nausea with vomiting, unspecified; R90.82 White matter disease, unspecified; M48.02 Spinal stenosis, cervical region; M47.892 Other spondylosis, cervical region; F32.9 Major depressive disorder, single episode, unspecified; Z95.5 Presence of coronary angioplasty implant and graft; Z79.899 Other long term (current) drug therapy; W06.XXXA Fall from bed, initial encounter
CPT/HCPCS: 70551; 71045; 72141; 80048; 80053; 81001; 83690; 84443; 85025; 87077; 87086; 87186; 94150; 94640; 94664; 96361; 96374; 97163; 99285; G0378; G8987; G8988; J7030; J7512